=== PATIENT | male | born 1985 | race Caucasian/White ===

== ENCOUNTER 2016-07-25 12:51 | Emergency (ER) | payer BC ==
[~2016-07-25] VITALS: Ht 175.3 cm; Wt 77.1 kg
[~2016-07-25 12:51] MED LIST: ASPI81TA28 PO; CALC667C PO; CHOL1TAB42 PO; CLIN150C15 PO; GLGKIT; HYDR-5688 PO; INSPMPNVLG; LSX80 PO; NRV/5 PO; PREG75CA PO; PROP40TA5 PO; PROP80TA2 PO; ULT50X PO; VENL37.593 PO; VNTHFA/IN INH
[2016-07-25 13:04] VITALS: Ht 175.3 cm; Wt 77.1 kg
--- NOTE | 2016-07-25 13:19 | EMERGENCY ROOM VISIT NOTE ---
History Report prepared by Falguni: Lazaro Worthington Under the Supervision of: Dr. Steve Vieira M.D. First contact with patient: 13:07 Chief Complaint: HYPOGLYCEMIA Stated Complaint: HYPOGLYCEMIA Nursing Triage Summary: pt arrived via ALS; was sitting outside [employer], unknown amount of time; BSG was 28 per EMS given D10 and warm IV fluids; A&O on arrival BSG 91 on arrival; pt went to dialysis this AM; has insulin pump. History of Present Illness The patient is a 31 year old male who presents to the Emergency Room with complaints of an episode of hypoglycemia that started prior to arrival today. Per the nursing staff, the patient was found sitting outside [employer]'s store, and they are not sure how long the patient was sitting there. The patient was hypoglycemic with a blood sugar of 28 when EMS found him. The patient was given D10 and IV fluids. His temperature was 97.9. Currently, the patient is shivering. He did go to dialysis this morning and he does have an insulin pump. The patient has 3rd degree palomino on the bottom of his feet that he is being treated for at [facility]. Per the patient, he is not sure what happened. He checks his glucose regularly at home, and his blood sugar has been okay recently. Source of History: patient, nursing staff Onset: Prior to arrival today Position: other (global - hypoglycemia) Symptom Intensity: blood sugar of 28 Note: Associated symptoms: Shivering. Does have 3rd degree palomino on the bottom of his feet that he is being treated for at [facility]. Review of Systems See HPI for pertinent positives & negatives. A total of 10 systems reviewed and were otherwise negative. Past Medical & Surgical Medical Problems: (1) Anemia (2) Chronic kidney disease, stage IV (severe) (3) CKD (chronic kidney disease) stage V requiring chronic dialysis (4) Diabetic neuropathy (5) DM type 1 (diabetes mellitus, type 1) (6) Dyslipidemia (7) GERD (gastroesophageal reflux disease) (8) HTN (hypertension) (9) Wound, open, foot Surgical Problems: (1) S/p eye procedures (2) S/P tonsillectomy and adenoidectomy Family History Diabetes mellitus FH: heart disease Hypertension FATHER Social History Smoking Status: Never Smoker Alcohol Use: none Drug Use: none Marital Status: in relationship Housing Status: lives with significant other Occupation Status: disabled Current/Historical Medications Scheduled Amlodipine Besylate (Amlodipine Besylate), 5 MG PO DAILY Aspirin (Aspirin Ec), 81 MG PO QAM Calcium Acetate (Phosphate Bin (Phoslo 667 Mg), 667 MG PO TID Cholecalciferol (Vitamin D), 5,000 INTER.UNIT PO DAILYBB Furosemide (Furosemide), 80 MG PO DAILY Insulin Aspart (novoLOG INSULIN PUMP ), 1 EA N/A UD Pregabalin (Lyrica), 75 MG PO BID Propranolol (Inderal), 80 MG PO QPM Propranolol Hcl (Propranolol Hcl), 40 MG PO QAM Venlafaxine Hcl (Venlafaxine Extended Rel), 37.5 MG PO QPM Scheduled PRN Albuterol Hfa (Ventolin Hfa), 2 PUFFS INH Q4H PRN for SOB/Wheezing Glucagon (Glucagon Emergency Kit), 1 DOSE UD PRN for HYPOGLYCEMIA PROTOCOL Hydrocodone/Acetaminophen 5MG/325MG (Loiza 5MG/325MG), 1 TABLET PO DAILY PRN for Severe Pain Tramadol HCl (Tramadol HCl), 50 MG PO Q6 PRN for Pain Allergies Coded Allergies: Penicillins (Verified Allergy, Intermediate, RASH A CHILD; HAS HAD AMOXICILLIN W/O PROBLEM, 06/19/16) BLAIR Inhibitors (Verified Adverse Reaction, Intermediate, hyperkalemia, 06/19/16) Angiotensin Receptor Blockers (Verified Adverse Reaction, Intermediate, hyperkalemia, 06/19/16) Physical Exam Vital Signs Date Time Temp Pulse Resp B/P Pulse Ox O2 Delivery O2 Flow Rate FiO2 07/25/16 18:57 89 15 121/68 98 07/25/16 18:00 91 18 112/63 99 Room Air 07/25/16 17:20 36.9 07/25/16 17:02 83 07/25/16 16:51 82 12 104/58 98 Room Air 07/25/16 15:42 35.7 07/25/16 15:36 78 15 111/65 98 Room Air 07/25/16 14:51 88 12 100 07/25/16 14:46 87 13 100 07/25/16 14:41 88 15 100 07/25/16 14:36 90 18 100 07/25/16 14:31 89 16 100 07/25/16 14:28 142/104 07/25/16 14:26 84 21 100 1/9/17 14:21 85 11 100 07/25/16 14:19 34.9 85 12 186/122 100 Room Air 07/25/16 14:16 85 16 100 07/25/16 14:11 92 12 100 07/25/16 14:06 93 12 100 07/25/16 14:01 92 10 100 07/25/16 13:58 186/122 07/25/16 13:56 88 9 100 07/25/16 13:51 88 15 100 07/25/16 13:46 89 10 100 07/25/16 13:41 90 12 100 07/25/16 13:36 89 13 100 07/25/16 13:31 89 16 100 07/25/16 13:28 193/119 07/25/16 13:26 89 10 100 07/25/16 13:21 90 19 100 07/25/16 13:16 90 19 100 07/25/16 13:11 88 13 100 07/25/16 13:08 182/129 07/25/16 13:06 87 8 100 07/25/16 13:04 33.8 88 19 182/129 100 Room Air 07/25/16 13:01 86 16 100 07/25/16 13:00 85 07/25/16 12:56 188/112 Physical Exam CONSTITUTIONAL: Shivering. Appears cold under blankets. HEENT: No icterus, moist mucous membranes NECK: No meningismus, trachea is midline. CARDIOVASCULAR: Regular rate, normal perfusion RESPIRATORY: Unlabored breathing. Clear to auscultation. GASTROINTESTINAL: Non-tender GENITOURINARY: No flank tenderness MUSCULOSKELETAL: Full range of motion NEUROLOGIC: No acute gross focal deficits. PSYCHIATRIC: Normal affect SKIN: Normal for ethnicity. Medical Decision & Procedures ER Provider Diagnostic Interpretation: X-ray results as stated below per interpretation by me and the radiologist. SINGLE VIEW CHEST CLINICAL HISTORY: Hypoglycemia. FINDINGS: An AP, portable, upright chest radiograph is compared to study dated 06/19/2016. The examination is degraded by portable technique and patient rotation. The cardiomediastinal silhouette is unremarkable. The lungs and pleural spaces are clear. No pneumothorax is seen. The bony thorax is grossly intact. IMPRESSION: No active disease in the chest. Electronically signed by: Alex Minaya M.D. 07/25/2016 1:44 PM Dictated Date/Time: 07/25/2016 1:44 PM Laboratory Results 07/25/16 13:50 Red Blood Count 4.38, Mean Corpuscular Volume 89.0, Mean Corpuscular Hemoglobin 30.4, Mean Corpuscular Hemoglobin Concent 34.1, Mean Platelet Volume 10.2, Neutrophils (%) (Auto) 61.5, Lymphocytes (%) (Auto) 26.7, Monocytes (%) (Auto) 5.8, Eosinophils (%) (Auto) 4.3, Basophils (%) (Auto) 1.0, Neutrophils # (Auto) 4.31, Lymphocytes # (Auto) 1.87, Monocytes # (Auto) 0.41, Eosinophils # (Auto) 0.30, Basophils # (Auto) 0.07 07/25/16 13:50 Test 07/25/16 13:50 07/25/16 17:23 White Blood Count 7.01 K/uL (4.8-10.8) Red Blood Count 4.38 M/uL (4.7-6.1) Hemoglobin 13.3 g/dL (14.0-18.0) Hematocrit 39.0 % (42-52) Mean Corpuscular Volume 89.0 fL (80-100) Mean Corpuscular Hemoglobin 30.4 pg (25-34) Mean Corpuscular Hemoglobin Concent 34.1 g/dl (32-36) Platelet Count 199 K/uL (130-400) Mean Platelet Volume 10.2 fL (7.4-10.4) Neutrophils (%) (Auto) 61.5 % Lymphocytes (%) (Auto) 26.7 % Monocytes (%) (Auto) 5.8 % Eosinophils (%) (Auto) 4.3 % Basophils (%) (Auto) 1.0 % Neutrophils # (Auto) 4.31 K/uL (1.4-6.5) Lymphocytes # (Auto) 1.87 K/uL (1.2-3.4) Monocytes # (Auto) 0.41 K/uL (0.11-0.59) Eosinophils # (Auto) 0.30 K/uL (0-0.5) Basophils # (Auto) 0.07 K/uL (0-0.2) RDW Standard Deviation 45.6 fL (36.4-46.3) RDW Coefficient of Variation 13.9 % (11.5-14.5) Immature Granulocyte % (Auto) 0.7 % Immature Granulocyte # (Auto) 0.05 K/uL (0.00-0.02) Anion Gap 10.0 mmol/L (3-11) Est Creatinine Clear Calc Drug Dose 24.4 ml/min Estimated GFR () 19.6 Estimated GFR (Non- 16.9 BUN/Creatinine Ratio 5.9 (10-20) Calcium Level 9.2 mg/dl (8.5-10.1) Phosphorus Level 4.9 mg/dl (2.5-4.9) Magnesium Level 2.3 mg/dl (1.8-2.4) Total Bilirubin 0.6 mg/dl (0.2-1) Direct Bilirubin 0.1 mg/dl (0-0.2) Aspartate Amino Transf (AST/SGOT) 19 U/L (15-37) Alanine Aminotransferase (ALT/SGPT) 44 U/L (12-78) Alkaline Phosphatase 127 U/L (45-117) Total Creatine Kinase 348 U/L (39-308) Total Protein 7.9 gm/dl (6.4-8.2) Albumin 3.8 gm/dl (3.4-5.0) Ethyl Alcohol mg/dL < 3.0 mg/dl (0-3) Bedside Glucose 343 mg/dl (70-99) Labs reviewed by ED physician. ECG Indication: other (hypoglycemia) Rate (beats per minute): 89 Rhythm: normal sinus Findings: no ectopy, other (some shivering noted, no [place] waves) ED Course 1312: Past medical records reviewed. The patient was evaluated in room A9B. A complete history and physical examination was performed. 1726: I reevaluated the patient and he is resting comfortably. The patient verbally expressed agreement and understanding of the treatment plan. The patient will be discharged. Medical Decision Differential diagnoses include: Poorly managed diabetes, complications of dialysis or kidney failure, hypothermia. 31-year-old brought to the emergency department via ambulance for evaluation of hypoglycemia. He has a history of end-stage renal disease on hemodialysis Monday as well as a history of insulin-dependent diabetes on insulin pump. He was noted to have a glucose of 20 in the field time he was unresponsive responded nicely to administration of dextrose intravenously. He was laying outside in this very cold weather and was found to have a mild hypothermia on arrival to the emergency department. He has mild shivering and is otherwise alert and appropriate and cooperative. He states he's been in his otherwise normal state of health although he has had occasional episodes of hypoglycemia. He cannot identify any specific triggers for this episode. He was warm to given a meal. Serial repeat glucoses were satisfactory. His insulin pump was turned back on. He understands to monitor his glucose closely. Mother also at bedside aware of assessment and plan and in agreement. Impression Primary Impression: Hypoglycemia Additional Impressions: Insulin dependent diabetes mellitus, Hypothermia Scribe Attestation The scribe's documentation has been prepared under my direction and personally reviewed by me in its entirety. I confirm that the note above accurately reflects all work, treatment, procedures, and medical decision making performed by me. Departure Information Dispostion Home / Self-Care Referrals Damian Ibarra M.D.(ELOISA) (PCP) Forms HOME CARE DOCUMENTATION FORM, IMPORTANT VISIT INFORMATION, WORK / SCHOOL INSTRUCTIONS Patient Instructions A Signature Page, ED Hypothermia Tx, My [facility]
--- NOTE | 2016-07-25 13:46 | DIAGNOSTIC IMAGING REPORT ---
SINGLE VIEW CHEST CLINICAL HISTORY: Hypoglycemia. FINDINGS: An AP, portable, upright chest radiograph is compared to study dated 06/19/2016. The examination is degraded by portable technique and patient rotation. The cardiomediastinal silhouette is unremarkable. The lungs and pleural spaces are clear. No pneumothorax is seen. The bony thorax is grossly intact. IMPRESSION: No active disease in the chest. Electronically signed by: Alex Minaya M.D. 07/25/2016 1:44 PM Dictated Date/Time: 07/25/2016 1:44 PM
[2016-07-25 14:31] LABS: BUN/CREATININE RATIO 5.9 (10-20); CALCIUM 9.2 mg/dl (8.5-10.1); CREATININE 4.3 mg/dl (0.60-1.40); MAGNESIUM 2.3 mg/dl (1.8-2.4); POTASSIUM 4.6 mmol/L (3.5-5.1)
[2016-07-25 14:33] LABS: PHOSPHORUS 4.9 mg/dl (2.5-4.9)
[2016-07-25 14:48] LABS: MEAN CORPUSCULAR HEMOGLOBIN 30.4 pg (25-34); MEAN CORPUSCULAR HGB CONC 34.1 g/dl (32-36); MEAN PLATELET VOLUME 10.2 fL (7.4-10.4); PLATELET COUNT 199 K/uL (130-400); RED BLOOD COUNT 4.38 M/uL (4.7-6.1); WHITE BLOOD COUNT 7.01 K/uL (4.8-10.8)
[2016-07-25 14:49] LABS: BASO ABS # 0.07 K/uL (0-0.2); COMPLETE YES; EOS % 4.3 %; IG% 0.7 %; LYMPH % 26.7 %; LYMPH ABS # 1.87 K/uL (1.2-3.4); MONO % 5.8 %; NEUT % 61.5 %
[2016-07-25 17:20] VITALS: TEMP 36.9
[2016-07-25 18:57] VITALS: BP 121/68; PULSE 89; O2SAT 98
[2017-01-06] MEDS ORDERED: LOPE-5 PO (07:56)
[2017-01-06] MEDS ORDERED: MULT-506 PO (07:56)
[2017-02-23] MEDS ORDERED: CEPH500C2 PO (07:54)
[2017-03-16] MEDS ORDERED: CIPR1TAB11 PO (09:15)
== END 2016-07-25 18:59 | disposition home or self-care (01) ==
LOC: EDBD 12:51 → C.EDA 12:52
DX: E11.649 Type 2 diabetes mellitus with hypoglycemia without coma (principal); T68.XXXA Hypothermia, initial encounter; X31.XXXA Exposure to excessive natural cold, initial encounter; Z96.41 Presence of insulin pump (external) (internal); N18.5 Chronic kidney disease, stage 5; E78.5 Hyperlipidemia, unspecified; K21.9 Gastro-esophageal reflux disease without esophagitis; I12.0 Hypertensive chronic kidney disease with stage 5 chronic kidney disease or end stage renal disease; Z79.82 Long term (current) use of aspirin; Z79.4 Long term (current) use of insulin

== ENCOUNTER 2016-10-04 10:28 | Inpatient (IN) | payer BC ==
[2016-09-22 12:20] VITALS: BMI 23.0
[~2016-10-04] VITALS: Ht 175.3 cm; Wt 74.7 kg
--- NOTE | 2016-10-04 05:48 | History and Physical ---
History & Physical Date of Service Oct 04, 2016. History & Physical Chief Complaint: End stage renal disease with functioning fistula and a steal of right upper extremity History of Present Illness The patient is a 30 year old male with DM and HTN with renal failure who now has a functioning avf. He has developed a steal of his right hand with significant weakness. He recently had palomino of his feet and treated at [facility] where he suffered a cardiac arrest. He has recovered from that. Allergies Coded Allergies: Penicillins (Verified Allergy, Intermediate, RASH, 05/22/15) BLAIR Inhibitors (Verified Adverse Reaction, Intermediate, hyperkalcemia, ) Angiotensin Receptor Blockers (Verified Adverse Reaction, Intermediate, hyperkalcemia, 05/22/15) Surgical / Medical History Hx Cardiac Surgery: No Hx Abdominal Surgery: No Hx Cancer Surgery: No Hx Thoracic Surgery: No Hx Orthopedic: No Hx Urinary Tract Surgery: No HX Other Surgery: Yes (TONSILLECOMY) Past Medical/Surgical History: Diabetes, Hypertension Family History Diabetes mellitus FH: heart disease Hypertension Social History Smoking Status: Former Smoker Hx Tobacco Use In Past Year?: No Hx Alcohol Use - Type & Amnt: No Hx Substance Use -Type & Amnt: No Review of Systems Constitutional: No chills, No diaphoresis, No fatigue, No fever, No malaise, No problem reported, No sweats, No weakness, No weight gain, No weight loss Respiratory: No ESPINAL, No PND, No cough, No cyanosis, No dyspnea, No hemoptysis, No orthopnea, No problem reported, No short of breath, No sputum production, No stridor, No wheezing Cardiovascular: No chest pain, No chest pressure, No chest tightness, No cyanosis, No diaphoresis, No edema, No intermittent claudication, No lightheadedness, No mumur, No orthopnea, No palpitations, No paroxysmal nocturnal dyspnea, No problem reported, No syncope Gastrointestinal: No abdominal pain, No anorexia, No appetite changes, No belching, No constipation, No diarrhea, No dysphagia, No flatulence, No food intolerance, No heartburn, No hematemesis, No hematochezia, No hemorrhoids, No indigestion, No nausea, No problem reported, No rectal bleeding, No stool changes, No vomiting Musculoskeletal: No back pain, No gout, No joint pain, No joint swelling, No muscle pain, No muscle stiffness, No muscle weakness, No neck pain, No problem reported Neurologic: No LOC, No dizziness, No headache, No lethargy, No memory loss, No numbness, No paresthesia, No pre-existing deficit, No problem reported, No seizures, No tics, No tingling, No tremors, No vertigo, No weakness Psychiatric: No alcohol abuse, No anxiety, No auditory hallucinations, No depression, No drug abuse, No homicidal ideation, No mood changes, No problem reported, No suicidal ideation, No visual hallucinations Physical Exam: Constitutional: General Apperance: heathly-appearing, well-nourished, well-developed Level of Distress: NAD Ambulation: ambulating normally Psychiatric: Mental Status: active & alert, normal mood, normal affect Orientation: oriented except where noted, to time, to place, to person ENMT: normal ENT inspection Neck: supple Lungs: Auscultation: breath sounds normal Cardiovascular: Heart Auscultation: RRR Peripheral Pulses: Pulses: full and equal, in all extremities except if noted Abdomen: Inspection & Palpation: soft Musculoskeletal: normal, normal strength (5/5 throughout), normal tone Extremities: Upper Right: no cyanosis, no edema, no varicosities, no palpable cord, no clubbing, no ulcers, no mottling, significant right hand weakness to grasp Upper Left: no cyanosis, no edema, no varicosities, no palpable cord, no clubbing, no ulcers, no mottling, good thrill and bruit in the fistula Lower Right: no cyanosis, no edema, no varicosities, no palpable cord, no clubbing, no ulcers, no mottling Lower Left: no cyanosis, no edema, no varicosities, no palpable cord, no clubbing, no ulcers, no mottling Neurologic: Cranial Nerves: grossly intact Sensation: grossly intact Imp: Right upper extremity steal syndrome End stage renal disease Functioning av fistula HTN DM Plan: Patient admitted for a distal revascularization with interval ligation. I have discussed the risks options and benefits of the procedure with the patient. The patient understands the risks options and benefits and agrees to the procedure.
[~2016-10-04 10:28] MED LIST changes: -CLIN150C15 PO; +CLINDAMYCIN 600 MG/54 ML D5W IV SCH; -HYDR-5688 PO; +MIDAZOLAM HCL 1 MG/ML 2ML VIAL ONE; +SODIUM CHLORIDE 0.9% 1000ML 1,000 ML IV SCH; -ULT50X PO
[2016-10-04] MEDS ORDERED: CALC667C4 PO (11:33)
[2016-10-04 11:40] VITALS: BP 147/84; PULSE 75; TEMP 36.6; O2SAT 100; BMI 23.0
[2016-10-04] MEDS ORDERED: HEPARIN SOD (PORCINE) 1000 UNIT/ML 10 ML VIAL ONE ×2 (12:27→18:21)
[2016-10-04] MEDS ORDERED: BUPIVACAINE/EPINEPHRINE 0.5% 1:200,000 1.8 ML CARP ONE (12:28)
[2016-10-04] MEDS ORDERED: LIDOCAINE/EPINEPHRINE 1% 20 ML VIAL ONE (12:30)
[2016-10-04] MEDS ORDERED: BUPIVACAINE/EPINEPHRINE 0.5% MPF 1:200,000 30 ML VIAL ONE (12:30)
[2016-10-04] MEDS ORDERED: LIDOCAINE HCL 1% 20 ML VIAL ONE (12:31)
[2016-10-04] MEDS ORDERED: THROMBIN 5000 UNITS KIT ONE (12:32)
[2016-10-04] MEDS ORDERED: GELATIN SPONGE 12-7MM ONE (12:33)
[2016-10-04 12:35] LABS: BUN/CREATININE RATIO 5.7 (10-20); CALCIUM 8.7 mg/dl (8.5-10.1); CREATININE 6.4 mg/dl (0.60-1.40); POTASSIUM 4.4 mmol/L (3.5-5.1)
[2016-10-04] MEDS ORDERED: ATROPINE SULFATE 0.1 MG/ML 5ML SYR IV PRN (12:45)
[2016-10-04] MEDS ORDERED: FENTANYL CITRATE INJ 50 MCG/1 ML 2 ML VIAL IV PRN (12:45)
[2016-10-04] MEDS ORDERED: ONDANSETRON INJ 2 MG/ML 2 ML VIAL IV PRN ×2 (12:45→20:00)
[2016-10-04] MEDS ORDERED: EpHEDrine SULFATE INJ 50 MG/ML AMP IV PRN (12:45)
[2016-10-04 12:48] LABS: BETA-HYDROXYBUTYRATE 3.98 mg/dL (0.2-2.81)
--- NOTE | 2016-10-04 14:29 | History & Physical Bridge Note ---
H&P Re-Evaluation Bridge Note: I have examined the patient, reviewed the History & Physical and in the interval since the performance of the History & Physical I have noted the following changes of clinical significance: No changes noted
[2016-10-04] MEDS ORDERED: PROPOFOL IV EMULSION 10 MG/ML 20 ML VIAL IV ONE ×2 (14:37→19:12)
[2016-10-04] MEDS ORDERED: ROCURONIUM BROMIDE 10 MG/ML 5 ML VIAL ONE ×2 (14:49→17:18)
[2016-10-04] MEDS ORDERED: LIDOCAINE HCL 2% 2 ML VIAL (20MG/ML) ONE (14:49)
[2016-10-04] MEDS ORDERED: GLYCOPYRROLATE INJ 0.2 MG/ML VIAL ONE (14:49)
[2016-10-04] MEDS ORDERED: ONDANSETRON INJ 2 MG/ML 2 ML VIAL ONE ×2 (14:49→17:13)
[2016-10-04] MEDS ORDERED: DEXAMETHASONE SOD INJ 4 MG/ML VIAL ONE (14:49)
[2016-10-04] MEDS ORDERED: NEOSTIGMINE METHYLSULFATE 5 MG/5 ML SYR ONE (14:49)
[2016-10-04] MEDS ORDERED: FENTANYL CITRATE INJ 50 MCG/1 ML 2 ML VIAL ONE ×3 (14:50→20:27)
[2016-10-04] MEDS ORDERED: SUCCINYLCHOLINE 100MG/5ML SYR IV ONE (18:48)
[2016-10-04] MEDS ORDERED: GLUCOSE 40% GEL 15 GM TUBE PO PRN (20:00)
[2016-10-04] MEDS ORDERED: ACETAMINOPHEN 325 MG TAB PO PRN (20:00)
[2016-10-04] MEDS ORDERED: DEXTROSE 50% 50 ML SYR IV PRN (20:00)
[2016-10-04] MEDS ORDERED: NON-FORMULARY MEDICATION (Glucagon (Glucagon Emergency Kit) 1 DOSE) PRN (20:00)
[2016-10-04] MEDS ORDERED: GLUCAGON FOR INJ 1 MG VIAL SQ PRN (20:00)
[2016-10-04] MEDS ORDERED: GLUCOSE 10 TABS/TUBE PO PRN (20:00)
[2016-10-04] MEDS ORDERED: MoRPHine SULFATE 4 MG/ML 1 ML CARP\\VIAL IV PRN (20:00)
[2016-10-04] MEDS ORDERED: NovoLOG INSULIN PUMP PRN (20:00)
[2016-10-04] MEDS ORDERED: ALBUTEROL HFA 8 GM INHALER INH PRN (20:00)
--- NOTE | 2016-10-04 20:06 | [facility] Post Operative Brief Note ---
Immediate Operative Summary Operative Date Oct 04, 2016. Pre-Operative Diagnosis Right upper extremity steal syndrome Post-Operative Diagnosis Right upper extremity steal syndrome Procedure(s) Performed Distal Revascularization Interval Ligation Procedure Right Upper Arm Surgeon Dr. Michelle Assistant Prosecuting Attorney Surgeon(s) Milton Alvarez MD Estimated Blood Loss 100ml Findings doppler ulnar and palmar arch left arm Specimens None Anesthesia Gen Complication(s) None Disposition Recovery Room / PACU
[2016-10-04 20:30] LABS: BASO % 0.5 %; BASO ABS # 0.04 K/uL (0-0.2); COMPLETE YES; EOS % 3.3 %; HEMATOCRIT 33.2 % (42-52); IG% 0.2 %; LYMPH % 45.2 %; LYMPH ABS # 3.68 K/uL (1.2-3.4); MEAN CELL VOLUME 88.1 fL (80-100); MEAN PLATELET VOLUME 9.7 fL (7.4-10.4); MONO % 5.2 %; NEUT % 45.6 %; PLATELET COUNT 167 K/uL (130-400); RED BLOOD COUNT 3.77 M/uL (4.7-6.1); WHITE BLOOD COUNT 8.14 K/uL (4.8-10.8)
[2016-10-04] MEDS ORDERED: INSULIN HUMAN REGULAR SC SCH (21:00)
[2016-10-04] MEDS ORDERED: PROPRANOLOL HCL 80 MG TAB PO SCH (21:00)
[2016-10-04] MEDS ORDERED: VENLAFAXINE HCL XR 37.5 MG CAPXR PO SCH (21:00)
[2016-10-04] MEDS: CALCIUM ACETATE 667MG GELCAP PO SCH (21:00)
[2016-10-04 21:05] LABS: BUN/CREATININE RATIO 6.2 (10-20); CALCIUM 8.5 mg/dl (8.5-10.1); POTASSIUM 4.4 mmol/L (3.5-5.1)
--- NOTE | 2016-10-04 21:44 | Anesthesiology Progress Note ---
Anesthesia Post Op Note Date & Time Oct 04, 2016 at 21:43 Vital Signs Pain Intensity: 2 Vital Signs Past 12 Hours Date Time Temp Pulse Resp B/P Pulse Ox O2 Delivery O2 Flow Rate FiO2 10/04/16 21:21 77 16 10/04/16 21:21 77 16 99 10/04/16 21:19 100/57 10/04/16 21:19 103/54 10/04/16 21:16 77 16 10/04/16 21:16 77 16 98 10/04/16 21:14 88/59 10/04/16 21:11 78 16 10/04/16 21:11 78 16 99 10/04/16 21:09 95/48 10/04/16 21:06 78 16 98/48 98 10/04/16 21:06 78 16 10/04/16 21:05 94/53 10/04/16 21:01 79 16 10/04/16 21:01 78 16 98 10/04/16 21:00 80 16 99 10/04/16 21:00 80 16 10/04/16 20:59 99/52 10/04/16 20:55 79 16 98 10/04/16 20:55 79 16 10/04/16 20:54 102/54 10/04/16 20:50 78 16 10/04/16 20:50 77 16 117/59 100 10/04/16 20:45 76 16 10/04/16 20:45 76 16 100 10/04/16 20:44 108/62 10/04/16 20:42 76 14 93 10/04/16 20:42 76 14 10/04/16 20:39 104/59 10/04/16 20:37 78 16 100 10/04/16 20:37 78 16 10/04/16 20:34 109/60 10/04/16 20:32 79 13 10/04/16 20:32 79 13 100 10/04/16 20:29 100/57 10/04/16 20:27 79 13 100 10/04/16 20:27 79 13 10/04/16 20:24 113/61 10/04/16 20:22 80 9 10/04/16 20:22 80 9 107/55 100 10/04/16 20:17 79 15 100 10/04/16 20:17 80 15 10/04/16 20:14 111/63 10/04/16 20:12 80 12 100 10/04/16 20:12 80 12 10/04/16 20:10 106/59 10/04/16 20:07 80 11 10/04/16 20:07 80 11 112/59 98 10/04/16 20:07 36.9 80 16 112/59 99 Mask 10 10/04/16 11:40 36.6 75 18 147/84 100 Room Air Notes Mental Status: alert / awake / arousable, participated in evaluation Pt Amnestic to Procedure: Yes Nausea / Vomiting: adequately controlled Pain: adequately controlled Airway Patency, RR, SpO2: stable & adequate BP & HR: stable & adequate Hydration State: stable & adequate Anesthetic Complications: no major complications apparent The patient tolerated the surgery well. His postop potassium was 4.4 and BSG was 207. He gave himself a bolus of 1.6 unit insulin on his pump. He is otherwise stable and doing well.
[2016-10-04] MEDS ORDERED: MoRPHine SULFATE 10 MG/ML CARP/VIAL ONE (21:59)
[2016-10-04] MEDS ORDERED: OXYCODONE/ACETAMINOPHEN 5-325 TAB ONE (22:50)
[2016-10-04 23:29] VITALS: BP 115/71; PULSE 79; TEMP 36.8; O2SAT 100; BMI 23.7
[2016-10-04] MEDS ORDERED: D5W AND 1/2NSS 1,000 ML IV SCH (23:59)
[2016-10-05] VITALS: O2SAT 96
[2016-10-05 00:20] VITALS: BP 130/78; PULSE 83; TEMP 36.6; O2SAT 96
[2016-10-05] MEDS ORDERED: INSULIN ASPART 100 UNITS/ML VIAL SC PRN (01:15)
[2016-10-05] MEDS: PREGABALIN 75 MG CAP PO SCH ×2 (01:24→09:36)
[2016-10-05] MEDS ORDERED: CLINDAMYCIN IV 600 MG in DEXTROSE 5% ADD-VANTAGE 50ML 50 ML IV SCH (02:00)
[2016-10-05 03:46] VITALS: BP 104/65; PULSE 73; TEMP 36.5; O2SAT 95
[2016-10-05 04:00] VITALS: O2SAT 95
[2016-10-05] MEDS: OXYCODONE/ACETAMINOPHEN 5-325 TAB PO PRN ×2 (04:08→09:34)
[2016-10-05 05:50] VITALS: Ht 175.3 cm; Wt 74.7 kg
[2016-10-05] MEDS ORDERED: CHOLECALCIFEROL 1000 INTER.UNIT TAB PO SCH (06:00)
--- NOTE | 2016-10-05 07:00 | OPERATIVE REPORT ---
DATE OF OPERATION: 10/04/2016 PREOPERATIVE DIAGNOSIS: Right upper extremity steal syndrome. POSTOPERATIVE DIAGNOSIS: Same. PROCEDURE: Distal revascularization and interval ligation, right upper extremity with ipsilateral cephalic vein. SURGEON: Dr. Eugene Michelle. LEGAL ARCHIVIST: Milton Alvarez MD ANESTHESIA: General. COMPLICATIONS: None. ESTIMATED BLOOD LOSS: 100 mL. INDICATIONS: This is a 31-year-old gentleman who had a previous right brachiocephalic AV fistula. This was placed many years ago for long-term hemodialysis access. He presented with ischemic symptoms of the right upper extremity. This was several months ago. We had planned to do a distal revascularization and interval ligation at that time. However, he had a serious medical illness after suffering some wounds and palomino on his feet. He had a cardiac arrest at an outside hospital. He has since recovered from all that and again returned to our office with complaints of ischemic symptoms of the right hand. These were quite debilitating. Duplex ultrasound did not show any brachial stenosis. His hand pulses augmented extensively with compression of the fistula. Therefore, a distal revascularization and interval ligation was indicated. The patient understood the risks, benefits, alternatives of the above procedure and agreed to proceed. DESCRIPTION OF PROCEDURE: The patient was brought to the operating room and placed in supine position. The right upper extremity was prepped and draped in normal sterile fashion. Timeout was performed and all parties agreed to correct patient and procedure to be performed. Appropriate surgical prophylactic antibiotics were administered within 1 hour of the incision. There appeared to be a quite large basilic vein. Therefore, we elected to use this for our bypass. Using a 15 blade, a longitudinal incision was made in the skin. The subcutaneous tissues were divided with electrocautery. The basilic vein was identified in the arm and was of very good quality. This was dissected free for a good way up the arm. This did appear to join with another large branch that continued on as the brachial vein and therefore that branch was left in place. Distally, the basilic vein was traced back essentially to the level of the antecubital fossa. The vein was dissected free, taking care to protect all nerves in the vicinity. The vein was ligated proximally and distally and removed. We then made a separate incision at the antecubital fossa. This incision was deepened with electrocautery. This area was fairly scarred from his previous fistula. However, we did dissect down and find the brachial artery bifurcation. This area was dissected free. Clamps were able to be placed on the radial artery, the ulnar artery and the proximal brachial artery. The patient was systemically heparinized. We elected to perform the distal anastomosis first. An arteriotomy was made in the brachial artery, which extended just down to the radial artery. This was extended with Mccarthy scissors. Using running 6-0 Prolene suture, the vein was sewn in place. All debris was flushed out of the graft. We then tunneled this vein through the small skin bridge about the antecubital fossa. The brachial artery was identified in the mid portion of the arm. This was clamped and an arteriotomy was made with an 11 blade. This was extended with Mccarthy scissors. I performed an anastomosis to this area of the brachial artery with the help of 6-0 Prolene suture in a continuous fashion. Prior to completion of the anastomosis, it was backbled, forebled and flushed. Both wounds were hemostatic. We next turned our attention to performing the interval ligation. The brachial artery was again identified. It was clamped. Upon this, we listened for signals in the hand. There really was good blood flow to the hand. There was a palmar arch signal. There also remained a strong thrill in the fistula. For this reason, the brachial artery was then ligated proximal to our anastomosis. Again, there was a good palmar arch signal after this. The wounds were copiously irrigated. Hemostasis was achieved. The arm incision was closed with Vicryl subcuticular, followed by lino for the skin. The antecubital incision was closed with Vicryl subcuticular and then Monocryl on the skin. At the end of the procedure, patient was awakened from anesthesia and transferred to recovery room in satisfactory condition. He had a thrill in the fistula and a signal in his palmar arch. All sponge, instrument and needle counts were correct. I attest to the content of the Intraoperative Record and any orders documented therein. Any exceptions are noted below. JESSIED
[2016-10-05] MEDS: CALCIUM ACETATE 667MG GELCAP PO SCH (07:18)
[2016-10-05 08:00] VITALS: BP 105/66; PULSE 73; TEMP 36.5; O2SAT 96
[2016-10-05] MEDS ORDERED: PATIENT'S HEIGHT AND/OR WEIGHT NEEDED SCH (08:00)
[2016-10-05] MEDS ORDERED: HEPARIN SOD 5000 UNIT/0.5 ML CARP SQ SCH (08:00)
[2016-10-05] MEDS ORDERED: PROPRANOLOL HCL 20 MG TAB PO SCH (09:00)
[2016-10-05] MEDS ORDERED: ASPIRIN 81 MG ECTAB PO SCH (09:00)
[2016-10-05] MEDS ORDERED: FUROSEMIDE 80 MG TAB PO SCH (09:00)
[2016-10-05] MEDS ORDERED: AMLODIPINE BESYLATE 5 MG TAB PO SCH (09:00)
[2016-10-05 09:42] LABS: BASO % 0.4 %; BASO ABS # 0.04 K/uL (0-0.2); COMPLETE YES; EOS % 1.8 %; HEMATOCRIT 34.2 % (42-52); IG% 0.2 %; LYMPH % 40.1 %; LYMPH ABS # 3.74 K/uL (1.2-3.4); MEAN CELL VOLUME 87.7 fL (80-100); MEAN PLATELET VOLUME 10.2 fL (7.4-10.4); MONO % 6.5 %; PLATELET COUNT 179 K/uL (130-400); WHITE BLOOD COUNT 9.32 K/uL (4.8-10.8)
[2016-10-05 10:25] LABS: BUN/CREATININE RATIO 6.1 (10-20); CALCIUM 8.9 mg/dl (8.5-10.1); CREATININE 8.4 mg/dl (0.60-1.40); POTASSIUM 4.4 mmol/L (3.5-5.1)
[2016-10-05] MEDS ORDERED: OXYC-57 PO (10:32)
--- NOTE | 2016-10-05 10:37 | Discharge Instructions ---
Discharge Instructions Date of Service Oct 05, 2016. Admission Reason for Admission: End Stage Renal Disease, Steal Syndrome Left Arm Discharge Discharge Diagnosis / Problem: s/p Right Arm Distal Revascularization with Interval Ligation, ESRD Discharge Goals Goal(s): Decrease discomfort, Therapeutic intervention Activity Recommendations Activity Limitations: as noted below No lifting heavier than 5 lbs with Right Arm x 2 weeks. May shower, no soaking wound. No dressing necessary unless drainage noted. May remove dressing tomorrow. . Current Hospital Diet Patient's current hospital diet: Diabetes Type 2 Diet, AHA Diet (Heart Healthy) , Renal Diet Discharge Diet Recommended Diet: AHA Diet (Heart Healthy), Diabetes Type 1 Diet, Renal Diet Procedures Procedures Performed: Distal Revascularization Interval Ligation Procedure Right Upper Arm Pending Studies Studies pending at discharge: no Medical Emergencies . Who to Call and When: Medical Emergencies: If at any time you feel your situation is an emergency, please call 911 immediately. . Non-Emergent Contact Non-Emergency issues call your: Primary Care Provider . "Provider Documentation" section prepared by Natalie Lake. VTE Core Measure Inpt VTE Proph given/why not?: Unfractionated heparin SQ PA Drug Monitoring Program Drug Monitoring Findings: Unable to check PDMP d/t technology issues.
--- NOTE | 2016-10-05 10:41 | Progress Note ---
Progress Note Date of Service: Oct 05, 2016. Subjective 31 yo m POD #1 after RUE DRIL procedure, seen in f/u today. Pt states he has mild pain in RUE, but otherwise feeling fine. Denies any new complaints. Problem List Medical Problems: (1) Anemia Status: Acute (2) Arm pain, right Status: Acute (3) Arm pain, right Status: Acute (4) Back pain Status: Acute (5) Diabetic foot ulcers Status: Acute (6) Dialysis AV fistula malfunction Status: Acute (7) DKA (diabetic ketoacidoses) Status: Acute (8) End stage renal disease Status: Acute (9) End stage renal disease Status: Acute (10) End stage renal disease on dialysis Status: Acute (11) End stage renal disease on dialysis Status: Acute (12) Esotropia, left eye Status: Acute (13) Hyperglycemia Status: Acute (14) Hyperkalemia Status: Acute (15) Hypoglycemia Status: Acute (16) Hypoglycemia Status: Acute (17) Hypoglycemia Status: Acute (18) Hypothermia Status: Acute (19) Infected wound Status: Acute (20) Insulin dependent diabetes mellitus Status: Acute (21) Intractable vomiting Status: Acute (22) Near syncope Status: Acute (23) Rash Status: Acute (24) Thoracic compression fracture Status: Acute Objective Vital Signs Vital Signs Past 12 Hours Date Time Temp Pulse Resp B/P Pulse Ox O2 Delivery O2 Flow Rate FiO2 10/05/16 08:00 Room Air 10/05/16 08:00 36.5 73 16 105/66 96 10/05/16 04:00 95 Room Air 10/05/16 03:46 36.5 73 16 104/65 95 Room Air 10/05/16 00:20 36.6 83 20 130/78 96 Room Air 10/05/16 00:00 96 Room Air 10/04/16 23:29 36.8 79 14 115/71 100 Nasal Cannula 2.0 10/04/16 23:29 115/71 10/04/16 23:26 80 16 99 10/04/16 23:26 80 16 10/04/16 23:21 80 16 10/04/16 23:21 79 16 99 10/04/16 23:16 79 16 98 10/04/16 23:16 79 16 10/04/16 23:15 117/71 3/21/17 23:13 79 16 10/04/16 23:13 79 16 99 10/04/16 23:08 80 20 10/04/16 23:08 80 20 98 10/04/16 23:03 80 16 10/04/16 23:03 80 16 98 10/04/16 23:02 81 16 100 10/04/16 23:02 81 16 10/04/16 23:00 116/80 10/04/16 22:57 82 19 10/04/16 22:57 82 19 99 10/04/16 22:52 82 23 10/04/16 22:52 82 23 99 10/04/16 22:47 83 19 10/04/16 22:47 83 19 99 10/04/16 22:45 119/75 10/04/16 22:42 84 20 10/04/16 22:42 84 20 99 Exam CONST: A&O x4, NAD, chronically ill appearing male CHEST: RRR lungs decreased, but ctab ABD: soft, nontender, + bs x 4 quad EXT: RUE with + local edema and tenderness. Wounds well approximated. + thrill /bruit over AVF and bypass. + palpable ulnar/radial, warm hand. Intake & Output 8-Hour Column 10/04/16 10/05/16 10/05/16 16:00 00:00 08:00 Intake Total 700 ml Output Total 100 ml Balance 600 ml 24-Hour Column 10/05/16 08:00 Intake Total 700 ml Output Total 100 ml Balance 600 ml Laboratory and Microbiology Results Past 24 Hours Test 10/04/16 11:24 10/04/16 11:28 10/04/16 12:39 10/04/16 14:29 Range/Units Bedside Glucose 300 322 263 70-99 mg/dl Sodium Level 134 136-145 mmol/L Potassium Level 4.4 3.5-5.1 mmol/L Chloride Level 96 98-107 mmol/L Carbon Dioxide Level 30 21-32 mmol/L Anion Gap 8.0 3-11 mmol/L Blood Urea Nitrogen 37 7-18 mg/dl Creatinine 6.40 0.60-1.40 mg/dl Est Creatinine Clear Calc Drug Dose 16.4 ml/min Estimated GFR () 12.1 Estimated GFR (Non- 10.4 BUN/Creatinine Ratio 5.7 10-20 Random Glucose 315 70-99 mg/dl Calcium Level 8.7 8.5-10.1 mg/dl Beta-Hydroxybutyric Acid 3.98 0.2-2.81 mg/dL Test 10/04/16 15:57 10/04/16 18:45 10/04/16 20:17 10/04/16 20:20 Range/Units Bedside Glucose 224 171 207 70-99 mg/dl White Blood Count 8.14 4.8-10.8 K/uL Red Blood Count 3.77 4.7-6.1 M/uL Hemoglobin 11.3 14.0-18.0 g/dL Hematocrit 33.2 42-52 % Mean Corpuscular Volume 88.1 80-100 fL Mean Corpuscular Hemoglobin 30.0 25-34 pg Mean Corpuscular Hemoglobin Concent 34.0 32-36 g/dl Platelet Count 167 130-400 K/uL Mean Platelet Volume 9.7 7.4-10.4 fL Neutrophils (%) (Auto) 45.6 % Lymphocytes (%) (Auto) 45.2 % Monocytes (%) (Auto) 5.2 % Eosinophils (%) (Auto) 3.3 % Basophils (%) (Auto) 0.5 % Neutrophils # (Auto) 3.71 1.4-6.5 K/uL Lymphocytes # (Auto) 3.68 1.2-3.4 K/uL Monocytes # (Auto) 0.42 0.11-0.59 K/uL Eosinophils # (Auto) 0.27 0-0.5 K/uL Basophils # (Auto) 0.04 0-0.2 K/uL RDW Standard Deviation 43.2 36.4-46.3 fL RDW Coefficient of Variation 13.4 11.5-14.5 % Immature Granulocyte % (Auto) 0.2 % Immature Granulocyte # (Auto) 0.02 0.00-0.02 K/uL Sodium Level 136 136-145 mmol/L Potassium Level 4.4 3.5-5.1 mmol/L Chloride Level 99 98-107 mmol/L Carbon Dioxide Level 29 21-32 mmol/L Anion Gap 8.0 3-11 mmol/L Blood Urea Nitrogen 44 7-18 mg/dl Creatinine 7.00 0.60-1.40 mg/dl Est Creatinine Clear Calc Drug Dose 15.0 ml/min Estimated GFR () 10.9 Estimated GFR (Non- 9.4 BUN/Creatinine Ratio 6.2 10-20 Random Glucose 238 70-99 mg/dl Calcium Level 8.5 8.5-10.1 mg/dl Test 10/05/16 06:38 10/05/16 09:23 10/05/16 10:25 Range/Units Bedside Glucose 265 70-99 mg/dl White Blood Count 9.32 4.8-10.8 K/uL Red Blood Count 3.90 4.7-6.1 M/uL Hemoglobin 11.3 14.0-18.0 g/dL Hematocrit 34.2 42-52 % Mean Corpuscular Volume 87.7 80-100 fL Mean Corpuscular Hemoglobin 29.0 25-34 pg Mean Corpuscular Hemoglobin Concent 33.0 32-36 g/dl Platelet Count 179 130-400 K/uL Mean Platelet Volume 10.2 7.4-10.4 fL Neutrophils (%) (Auto) 51.0 % Lymphocytes (%) (Auto) 40.1 % Monocytes (%) (Auto) 6.5 % Eosinophils (%) (Auto) 1.8 % Basophils (%) (Auto) 0.4 % Neutrophils # (Auto) 4.74 1.4-6.5 K/uL Lymphocytes # (Auto) 3.74 1.2-3.4 K/uL Monocytes # (Auto) 0.61 0.11-0.59 K/uL Eosinophils # (Auto) 0.17 0-0.5 K/uL Basophils # (Auto) 0.04 0-0.2 K/uL RDW Standard Deviation 43.2 36.4-46.3 fL RDW Coefficient of Variation 13.4 11.5-14.5 % Immature Granulocyte % (Auto) 0.2 % Immature Granulocyte # (Auto) 0.02 0.00-0.02 K/uL Sodium Level 136 136-145 mmol/L Potassium Level 4.4 3.5-5.1 mmol/L Chloride Level 98 98-107 mmol/L Carbon Dioxide Level 29 21-32 mmol/L Anion Gap 9.0 3-11 mmol/L Blood Urea Nitrogen 52 7-18 mg/dl Creatinine 8.40 0.60-1.40 mg/dl Est Creatinine Clear Calc Drug Dose 12.5 ml/min Estimated GFR () 8.7 Estimated GFR (Non- 7.5 BUN/Creatinine Ratio 6.1 10-20 Random Glucose 197 70-99 mg/dl Calcium Level 8.9 8.5-10.1 mg/dl Microbiology Results 10/05/16 MRSA DNA Surveillance Screen - Final, Complete Specimen Negative for MRSA by DNA Probe ASSESSMENT and PLAN: s/p RUE DRIL procedure ESRD on HD, RUE steal syndrome Pt doing well post op. d/c home today with outpt hd. Will see in office n 2 weeks for reeval.
[2016-10-05 10:42] VITALS: BP 105/66; PULSE 73; TEMP 36.5; O2SAT 96
[2016-10-05 10:52] LABS: PARTIAL THROMBOPLASTIN RATIO 0.9; PROTHROMBIN TIME (PATIENT) 10.7 SECONDS (9.0-12.0)
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
[2017-01-06] MEDS ORDERED: LOPE-5 PO (07:56)
[2017-01-06] MEDS ORDERED: MULT-506 PO (07:56)
[2017-02-23] MEDS ORDERED: CEPH500C2 PO (07:54)
[2017-03-16] MEDS ORDERED: CIPR1TAB11 PO (09:15)
== END 2016-10-05 11:16 | disposition home or self-care (01) | DRG 264 ==
LOC: ENRESERVDT → ENRESERVTM → C.ACU 10:28 → C.2T 20:04 → EDBEDREQSVC 20:59
PROVIDERS: ADMIT Surgery Vascular Surgery; ATTEND Surgery Vascular Surgery
DX: T82.898A Other specified complication of vascular prosthetic devices, implants and grafts, initial encounter (principal); N18.6 End stage renal disease; I12.0 Hypertensive chronic kidney disease with stage 5 chronic kidney disease or end stage renal disease; E11.21 Type 2 diabetes mellitus with diabetic nephropathy; Z88.0 Allergy status to penicillin; Z83.3 Family history of diabetes mellitus; Z87.891 Personal history of nicotine dependence; Y83.2 Surgical operation with anastomosis, bypass or graft as the cause of abnormal reaction of the patient, or of later complication, without mention of misadventure at the time of the procedure; Y92.009 Unspecified place in unspecified non-institutional (private) residence as the place of occurrence of the external cause; Z79.4 Long term (current) use of insulin; Z99.2 Dependence on renal dialysis

== ENCOUNTER 2016-12-26 08:02 | Emergency (ER) | payer BC ==
[~2016-12-26] VITALS: Ht 175.3 cm; Wt 78.6 kg
[~2016-12-26 08:02] MED LIST changes: -CALC667C PO; +CALC667C4 PO; -CLINDAMYCIN 600 MG/54 ML D5W IV SCH; -MIDAZOLAM HCL 1 MG/ML 2ML VIAL ONE; +OXYC-57 PO; -SODIUM CHLORIDE 0.9% 1000ML 1,000 ML IV SCH
[2016-12-26 08:06] VITALS: BP 136/87; PULSE 104; TEMP 36.5; O2SAT 99; Ht 175.3 cm; Wt 78.6 kg
[2016-12-26] MEDS ORDERED: AMX875 PO (08:39)
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
[2017-01-06] MEDS ORDERED: MULT-506 PO (07:56)
[2017-01-06] MEDS ORDERED: LOPE-5 PO (07:56)
[2017-02-23] MEDS ORDERED: CEPH500C2 PO (07:54)
[2017-03-16] MEDS ORDERED: CIPR1TAB11 PO (09:15)
== END 2016-12-26 08:58 | disposition home or self-care (01) ==
LOC: C.EDB 08:04
DX: T25.029A Burn of unspecified degree of unspecified foot, initial encounter (principal); X19.XXXA Contact with other heat and hot substances, initial encounter; D64.9 Anemia, unspecified; N18.4 Chronic kidney disease, stage 4 (severe); Z99.2 Dependence on renal dialysis; E78.5 Hyperlipidemia, unspecified; E10.40 Type 1 diabetes mellitus with diabetic neuropathy, unspecified; K21.9 Gastro-esophageal reflux disease without esophagitis; I10 Essential (primary) hypertension; Z83.3 Family history of diabetes mellitus; Z82.49 Family history of ischemic heart disease and other diseases of the circulatory system; F17.200 Nicotine dependence, unspecified, uncomplicated; Z79.82 Long term (current) use of aspirin; Z79.4 Long term (current) use of insulin

== ENCOUNTER 2016-12-31 10:29 | Emergency (ER) | payer BC ==
[~2016-12-31] VITALS: Ht 175.3 cm; Wt 82.0 kg
[~2016-12-31 10:29] MED LIST changes: +AMX875 PO; -OXYC-57 PO
[2016-12-31 10:38] VITALS: TEMP 36.6; Ht 175.3 cm; Wt 82.0 kg
--- NOTE | 2016-12-31 11:31 | EMERGENCY ROOM VISIT NOTE ---
History Report prepared by Falguni: Josse Landeros Under the Supervision of: Dr. Ascencion Lang M.D. First contact with patient: 10:59 Chief Complaint: FOOT PAIN Stated Complaint: SWOLLEN FOOT,BODY ACHES History of Present Illness The patient is a 31 year old male who presents to the Emergency Room with complaints of bilateral foot swelling that began last night. He rates his pain a 5/10 in severity. He has previous palomino to the soles of his bilateral feet for which he has being [facility]. Last night, however, his feet began to swell. He notes that they are not as swollen as they were, but still are. He has a history of Diabetes and receives dialysis on Monday, Monday, and Monday. He denies any excess or new activity yesterday. He is taking Amoxicillin which started 6 days ago for "his teeth." He is experiencing neuropathy pain. He denies any other symptoms. Source of History: patient Onset: last night Position: foot (bilateral) Symptom Intensity: 5/10 Quality: ache, other (swelling) Timing: constant Note: He is experiencing neuropathy pain in his feet. He denies any other symptoms. Review of Systems See HPI for pertinent positives & negatives. A total of 10 systems reviewed and were otherwise negative. Past Medical & Surgical Medical Problems: (1) Anemia (2) Chronic kidney disease, stage IV (severe) (3) CKD (chronic kidney disease) stage V requiring chronic dialysis (4) Diabetic neuropathy (5) DM type 1 (diabetes mellitus, type 1) (6) Dyslipidemia (7) GERD (gastroesophageal reflux disease) (8) HTN (hypertension) (9) steal syndrome left arm (10) Wound, open, foot Surgical Problems: (1) S/p eye procedures (2) S/P tonsillectomy and adenoidectomy Family History Diabetes mellitus FH: heart disease Hypertension FATHER Social History Smoking Status: Current Every Day Smoker Alcohol Use: none Drug Use: none Marital Status: in relationship Housing Status: lives with significant other Occupation Status: disabled Current/Historical Medications Scheduled Amlodipine Besylate (Amlodipine Besylate), 5 MG PO QAM Amoxicillin (Amoxicillin), 875 MG PO BID Aspirin (Aspirin Ec), 81 MG PO QAM Calcium Acetate (Phoslo 667 Mg), 1 CAP PO BID Cholecalciferol (Vitamin D), 5,000 INTER.UNIT PO DAILYBB Furosemide (Furosemide), 80 MG PO QAM Insulin Aspart (novoLOG INSULIN PUMP ), 1 EA N/A UD Pregabalin (Lyrica), 75 MG PO BID Propranolol (Inderal), 80 MG PO QPM Propranolol Hcl (Propranolol Hcl), 40 MG PO QAM Sulfa/Trimethoprim (Bactrim Ds 800MG/160MG), 1 TAB PO BID Venlafaxine Hcl (Venlafaxine Extended Rel), 37.5 MG PO QPM Scheduled PRN Albuterol Hfa (Ventolin Hfa), 2 PUFFS INH Q4H PRN for SOB/Wheezing Glucagon (Glucagon Emergency Kit), 1 DOSE UD PRN for HYPOGLYCEMIA PROTOCOL Allergies Coded Allergies: Penicillins (Verified Allergy, Intermediate, RASH A CHILD; HAS HAD AMOXICILLIN W/O PROBLEM, 12/31/16) BLAIR Inhibitors (Verified Adverse Reaction, Intermediate, hyperkalemia, ) Angiotensin Receptor Blockers (Verified Adverse Reaction, Intermediate, hyperkalemia, 12/31/16) Physical Exam Vital Signs Date Time Temp Pulse Resp B/P (MAP) Pulse Ox O2 Delivery O2 Flow Rate FiO2 12/31/16 12:55 108 16 153/100 97 12/31/16 10:38 36.6 96 18 155/95 99 Room Air Physical Exam GENERAL: Patient is a healthy-appearing well-nourished male HEAD: Normocephalic atraumatic EYES: Ocular movements intact pupils equal and react to light OROPHARYNX mucous membranes are moist no exudates present no erythema or edema present NECK: Supple no nuchal rigidity CHEST: Good equal expansion LUNGS: Clear and equal to auscultation CARDIAC: Normal S1 and S2 ABDOMEN: Soft nontender no guarding BACK: No CVA tenderness EXTREMITIES: Total debridement of the bottom of the bilateral feet. No pus or evidence of infection. Areas of slight redness. Feet area slightly swollen. No evidence of cellulitis. NEURO: Patient is following commands and answering questions appropriately. Alert and oriented x3 Cranial Nerves 2-12 grossly intact Medical Decision & Procedures Laboratory Results 12/31/16 11:45 Red Blood Count 3.77, Mean Corpuscular Volume 92.8, Mean Corpuscular Hemoglobin 31.8, Mean Corpuscular Hemoglobin Concent 34.3, Mean Platelet Volume 10.1, Neutrophils (%) (Auto) 70.3, Lymphocytes (%) (Auto) 17.1, Monocytes (%) (Auto) 10.5, Eosinophils (%) (Auto) 1.6, Basophils (%) (Auto) 0.3, Neutrophils # (Auto ) 8.06, Lymphocytes # (Auto) 1.96, Monocytes # (Auto) 1.21, Eosinophils # (Auto ) 0.18, Basophils # (Auto) 0.04 12/31/16 11:45 Test 12/31/16 11:45 White Blood Count 11.47 K/uL (4.8-10.8) Red Blood Count 3.77 M/uL (4.7-6.1) Hemoglobin 12.0 g/dL (14.0-18.0) Hematocrit 35.0 % (42-52) Mean Corpuscular Volume 92.8 fL (80-100) Mean Corpuscular Hemoglobin 31.8 pg (25-34) Mean Corpuscular Hemoglobin Concent 34.3 g/dl (32-36) Platelet Count 220 K/uL (130-400) Mean Platelet Volume 10.1 fL (7.4-10.4) Neutrophils (%) (Auto) 70.3 % Lymphocytes (%) (Auto) 17.1 % Monocytes (%) (Auto) 10.5 % Eosinophils (%) (Auto) 1.6 % Basophils (%) (Auto) 0.3 % Neutrophils # (Auto) 8.06 K/uL (1.4-6.5) Lymphocytes # (Auto) 1.96 K/uL (1.2-3.4) Monocytes # (Auto) 1.21 K/uL (0.11-0.59) Eosinophils # (Auto) 0.18 K/uL (0-0.5) Basophils # (Auto) 0.04 K/uL (0-0.2) RDW Standard Deviation 45.4 fL (36.4-46.3) RDW Coefficient of Variation 13.2 % (11.5-14.5) Immature Granulocyte % (Auto) 0.2 % Immature Granulocyte # (Auto) 0.02 K/uL (0.00-0.02) Anion Gap 6.0 mmol/L (3-11) Est Creatinine Clear Calc Drug Dose 15.5 ml/min Estimated GFR () 11.2 Estimated GFR (Non- 9.7 BUN/Creatinine Ratio 4.5 (10-20) Calcium Level 9.8 mg/dl (8.5-10.1) Labs reviewed by ED physician. Medications Administered Medications (Trade) Dose Ordered Sig/Lynda Route Start Time Stop Time Status Last Admin Dose Admin Trimethoprim/ Sulfamethoxazole (Septra Ds 800/ 160MG Tab) 1 tab NOW STAT PO 12/31/16 12:27 12/31/16 12:28 DC 12/31/16 12:49 1 TAB ED Course 1059: Past medical records reviewed. The patient was evaluated in room A4. A complete history and physical examination was performed. 1227: Ordered Trimethoprim/Sulfamethoxazole 1 tab PO 1242: Upon reexamination the patient is resting. I discussed results and treatment plan with the patient. He verbalizes agreement and understanding. The patient is ready for discharge. Medical Decision Differential diagnosis: Etiologies such as fracture, dislocation, intra-abdominal, pneumothorax, intrathoracic , intracranial, neurologic, as well as other traumatic pathologies were entertained. Medication Reconciliation: I attest that I have personally reviewed the patient' s current medication list Blood Pressure Screening: Patient was found to have normal blood pressure on screening and does not require follow up. This is a 31-year-old male who presents emergency department complaining of increasing swelling in his feet. The feet are actually much improved from last night per patient and his mother. Based on the patient's complaint an IV was established, the patient does have an elevation in his white blood count cell count. I inspected the wounds myself. There does not appear to be any outright evidence of infection however a wound culture was obtained. The feet were read managed in the emergency department. I did discuss the case with Dr. Saleem who is on-call for wound care. I will note that the patient is early on amoxicillin for his teeth. I did add Bactrim to cover. Dr. louie stressed that the patient should stay in bed for the rest of the weekend. He will see the patient on Monday. Patient and mother were in agreement with the treatment plan. Impression Primary Impression: Encounter for wound re-check Scribe Attestation The scribe's documentation has been prepared under my direction and personally reviewed by me in its entirety. I confirm that the note above accurately reflects all work, treatment, procedures, and medical decision making performed by me. Departure Information Dispostion Home / Self-Care Prescriptions Sulfa/Trimethoprim (Bactrim Ds 800MG/160MG) Tab 1 TAB PO BID for 10 Days, #20 TAB Prov: Ascencion Lang MD 12/31/16 Referrals Damian Ibarra M.D.([facility]) (PCP) Wes Alva MD, Urology Forms HOME CARE DOCUMENTATION FORM, IMPORTANT VISIT INFORMATION, School Instructions, Work Instructions Patient Instructions ED Burn Wound Check FU Infec, ED Burn Wound Check No Infec, Hypertension Dc, My [facility] Additional Instructions Follow up with DR Saleem's office on monday Bedrest for rest of weekend with feet elevated You were found to have an elevated blood pressure today (>120 sytolic or >90 diastolic). Per medicare guidelines, you need to follow up with this blood pressure screening with your Primary Care Physician (PCP). For a new PCP call [phone]. Culture results are usually available in approx 48 hours You have been examined and treated today on an emergency basis only. This is not a substitute for, or an effort to provide, complete comprehensive medical care. It is impossible to recognize and treat all injuries or illnesses in a single emergency department visit. It is therefore important that you follow up closely with Dr Ibarra. Call as soon as possible for an appointment. Thank you for your time and consideration. I look forward to speaking with you again soon. Please don't hesitate to call us if you have any questions.
[2016-12-31 12:04] LABS: BASO % 0.3 %; BASO ABS # 0.04 K/uL (0-0.2); COMPLETE YES; EOS % 1.6 %; IG% 0.2 %; LYMPH % 17.1 %; LYMPH ABS # 1.96 K/uL (1.2-3.4); MEAN CELL VOLUME 92.8 fL (80-100); MEAN CORPUSCULAR HEMOGLOBIN 31.8 pg (25-34); MEAN CORPUSCULAR HGB CONC 34.3 g/dl (32-36); MEAN PLATELET VOLUME 10.1 fL (7.4-10.4); MONO % 10.5 %; NEUT % 70.3 %; PLATELET COUNT 220 K/uL (130-400); RED BLOOD COUNT 3.77 M/uL (4.7-6.1); WHITE BLOOD COUNT 11.47 K/uL (4.8-10.8)
[2016-12-31] MEDS ORDERED: SULFAMETHOXAZOLE/TRIMETHOPRIM DS 800/160MG TAB PO STA (12:27)
[2016-12-31] MEDS ORDERED: SULF800T23 PO (12:32)
[2016-12-31 12:34] LABS: CREATININE 6.8 mg/dl (0.60-1.40)
[2016-12-31 12:35] LABS: BUN/CREATININE RATIO 4.5 (10-20); CALCIUM 9.8 mg/dl (8.5-10.1); POTASSIUM 3.9 mmol/L (3.5-5.1)
[2016-12-31 12:55] VITALS: BP 153/100; PULSE 108; O2SAT 97
[2017-01-06] MEDS ORDERED: MULT-506 PO (07:56)
[2017-01-06] MEDS ORDERED: LOPE-5 PO (07:56)
[2017-02-23] MEDS ORDERED: CEPH500C2 PO (07:54)
[2017-03-16] MEDS ORDERED: CIPR1TAB11 PO (09:15)
== END 2016-12-31 12:56 | disposition home or self-care (01) ==
LOC: C.EDB 10:31 → C.EDA 12:56
DX: Z09 Encounter for follow-up examination after completed treatment for conditions other than malignant neoplasm (principal); M79.89 Other specified soft tissue disorders; S91.301D Unspecified open wound, right foot, subsequent encounter; S91.302D Unspecified open wound, left foot, subsequent encounter; X58.XXXD Exposure to other specified factors, subsequent encounter; D64.9 Anemia, unspecified; N18.5 Chronic kidney disease, stage 5; E10.40 Type 1 diabetes mellitus with diabetic neuropathy, unspecified; E78.5 Hyperlipidemia, unspecified; K21.9 Gastro-esophageal reflux disease without esophagitis; I12.0 Hypertensive chronic kidney disease with stage 5 chronic kidney disease or end stage renal disease; Z83.3 Family history of diabetes mellitus; Z82.49 Family history of ischemic heart disease and other diseases of the circulatory system; F17.210 Nicotine dependence, cigarettes, uncomplicated; Z79.82 Long term (current) use of aspirin; Z79.4 Long term (current) use of insulin; Z79.899 Other long term (current) drug therapy

== ENCOUNTER 2017-08-03 19:38 | Emergency (ER) | payer OTHER ==
[~2017-08-03] VITALS: Ht 175.3 cm; Wt 72.8 kg
[~2017-08-03 19:38] MED LIST changes: -AMX875 PO; -INSPMPNVLG; +LOPE-5 PO; +MULT-506 PO; -NRV/5 PO; -PREG75CA PO; -PROP40TA5 PO; -PROP80TA2 PO; +ROPI0.5T15 PO; -VENL37.593 PO; -VNTHFA/IN INH
[2017-08-03 19:45] VITALS: Ht 175.3 cm; Wt 72.8 kg
[2017-08-03 20:51] LABS: BASO % 0.4 %; BASO ABS # 0.04 K/uL (0-0.2); EOS % 3.1 %; EOS ABS # 0.33 K/uL (0-0.5); HEMATOCRIT 40.8 % (42-52); HEMOGLOBIN 13.6 g/dL (14.0-18.0); IG# 0.02 K/uL (0.00-0.02); LYMPH % 17.7 %; LYMPH ABS # 1.87 K/uL (1.2-3.4); MEAN CELL VOLUME 91.7 fL (80-100); MEAN CORPUSCULAR HEMOGLOBIN 30.6 pg (25-34); MEAN CORPUSCULAR HGB CONC 33.3 g/dl (32-36); MEAN PLATELET VOLUME 10.5 fL (7.4-10.4); MONO % 4.8 %; MONO ABS # 0.51 K/uL (0.11-0.59); NEUT % 73.8 %; NEUT ABS # 7.82 K/uL (1.4-6.5); PLATELET COUNT 171 K/uL (130-400); RED CELL DISTRIBUTION WIDTH CV 14.2 % (11.5-14.5); RED CELL DISTRIBUTION WIDTH SD 47.7 fL (36.4-46.3); WHITE BLOOD COUNT 10.59 K/uL (4.8-10.8)
--- NOTE | 2017-08-03 20:52 | DIAGNOSTIC IMAGING REPORT ---
SINGLE VIEW CHEST CLINICAL HISTORY: Weakness. Change in mental status. FINDINGS: An AP, portable, upright chest radiograph is compared to study dated 07/25/2016. The examination is degraded by portable technique and patient rotation. The cardiomediastinal silhouette is unremarkable. The lungs and pleural spaces are clear. No pneumothorax is seen. The bony thorax is grossly intact. Scoliosis is noted in the thoracic spine. IMPRESSION: No active disease in the chest. Electronically signed by: Alex Minaya M.D. 08/03/2017 8:51 PM Dictated Date/Time: 08/03/2017 8:50 PM
[2017-08-03 21:34] LABS: CALCIUM 9.7 mg/dl (8.5-10.1); CKMB 15.6 ng/ml (0.5-3.6); CREATININE 7.89 mg/dl (0.60-1.40); POTASSIUM 3.8 mmol/L (3.5-5.1); TOTAL PROTEIN 8.7 gm/dl (6.4-8.2)
[2017-08-03] MEDS ORDERED: VENL37.593 PO (21:38)
[2017-08-03] MEDS ORDERED: PREG75CA PO (21:38)
[2017-08-03] MEDS ORDERED: PROP40TA5 PO (21:38)
[2017-08-03] MEDS ORDERED: INSPMPNVLG (21:38)
[2017-08-03] MEDS ORDERED: NRV/5 PO (21:38)
[2017-08-03 21:42] VITALS: TEMP 36.3
--- NOTE | 2017-08-03 22:27 | EMERGENCY ROOM VISIT NOTE ---
History Report prepared by Falguni: Kasia Snider Under the Supervision of: Dr. Ascencion Olivo D.O. First contact with patient: 20:02 Chief Complaint: HYPOGLYCEMIA Stated Complaint: HYPERGLYCEMIA Nursing Triage Summary: See triage note History of Present Illness The patient is a 32 year old male who presents to the Emergency Room with complaints of an episode of hypoglycemia starting 6 hours ago. The patient's girlfriend states that she had talked to him on the phone six hours ago before he went out to run errands. She reports that she couldn't get a hold of him and could not get into his apartment, but noticed all of his things were sitting on the table through the window. She reports that at that time she called 911, which was [id number]. The patient's girlfriend denies knowing how long he was unconscious. She states that he came to when EMS arrived and was combative. She notes that this is not the first time this has happened and this is similar to his previous episodes. The patient complains of feeling fatigued. The patient denies any tongue pain. The patient notes that he last ate this afternoon and gave himself insulin at that time. The patient's girlfriend states that he is on dialysis three times a week as well. Source of History: patient, spouse/significant other Onset: 6 hours ago Position: other (global) Quality: other ("Similar to other episodes of hypoglycemia") Timing: other (episode) Associated Symptoms: + LOC, + fatigue Note: The patient denies tongue pain. Review of Systems See HPI for pertinent positives & negatives. A total of 10 systems reviewed and were otherwise negative. Past Medical & Surgical Medical Problems: (1) Anemia (2) Chronic kidney disease, stage IV (severe) (3) CKD (chronic kidney disease) stage V requiring chronic dialysis (4) Diabetic neuropathy (5) DM type 1 (diabetes mellitus, type 1) (6) Dyslipidemia (7) GERD (gastroesophageal reflux disease) (8) HTN (hypertension) (9) steal syndrome left arm (10) Wound, open, foot Surgical Problems: (1) S/p eye procedures (2) S/P tonsillectomy and adenoidectomy Family History Diabetes mellitus FH: heart disease Hypertension FATHER Social History Smoking Status: Current Some Day Smoker Alcohol Use: none Drug Use: none Marital Status: in relationship Housing Status: lives with significant other Occupation Status: disabled Current/Historical Medications Scheduled Amlodipine Besylate (Amlodipine Besylate), 5 MG PO QAM Aspirin (Aspirin Ec), 81 MG PO QAM Calcium Acetate (Phoslo 667 Mg), 667 MG PO BID Cholecalciferol (Vitamin D), 5,000 INTER.UNIT PO QAM Furosemide (Furosemide), 80 MG PO QAM Insulin Aspart (novoLOG INSULIN PUMP ), 1 EA N/A UD Multivitamin (Multivitamin), 1 TAB PO QAM Pregabalin (Lyrica), 75 MG PO BID Propranolol Hcl (Propranolol Hcl), 80 MG PO BID Ropinirole (Requip), 0.5 MG PO HS Venlafaxine Hcl (Venlafaxine Extended Rel), 37.5 MG PO QPM Scheduled PRN Glucagon (Glucagon Emergency Kit), 1 DOSE UD PRN for HYPOGLYCEMIA PROTOCOL Loperamide Hcl (Imodium A-D), 2 MG PO UD PRN for Diarrhea Allergies Coded Allergies: Penicillins (Verified Allergy, Intermediate, RASH A CHILD; HAS HAD AMOXICILLIN W/O PROBLEM, 07/28/17) BLAIR Inhibitors (Verified Adverse Reaction, Intermediate, hyperkalemia, 07/03) Angiotensin Receptor Blockers (Verified Adverse Reaction, Intermediate, hyperkalemia, 07/28/17) Physical Exam Vital Signs Date Time Temp Pulse Resp B/P (MAP) Pulse Ox O2 Delivery O2 Flow Rate FiO2 08/03/17 22:30 84 16 110/62 98 08/03/17 21:42 36.3 81 14 105/58 100 Room Air 08/03/17 20:03 171/108 08/03/17 20:02 85 08/03/17 19:45 34.1 87 16 214/130 100 Room Air Physical Exam CONSTITUTIONAL/VITAL SIGNS: Reviewed / noted above. GENERAL: Non-toxic in appearance. INTEGUMENTARY: Warm, dry, and [place]. HEAD: Normocephalic. EYES: without scleral icterus or trauma. ENT/OROPHARYNX: clear and moist. LYMPHADENOPATHY/NECK: Is supple without lymphadenopathy or meningismus. RESPIRATORY: Lungs clear and equal. CARDIOVASCULAR: Regular rate and rhythm. GI/ABDOMEN: Soft and nontender. No organomegaly or pulsatile mass. No rebound or guarding. Normal bowel sounds. EXTREMITIES: Warm and well perfused. BACK: No CVA tenderness. NEUROLOGICAL: Somewhat tired. Answers questions appropriately. Moves all extremities. Generalized weakness. PSYCHIATRIC: normal affect. MUSCULOSKELETAL: Normally developed with good muscle tone. Medical Decision & Procedures ER Provider Diagnostic Interpretation: Radiology results as stated below per my review and radiologist interpretation: SINGLE VIEW CHEST CLINICAL HISTORY: Weakness. Change in mental status. FINDINGS: An AP, portable, upright chest radiograph is compared to study dated 07/25/2016. The examination is degraded by portable technique and patient rotation. The cardiomediastinal silhouette is unremarkable. The lungs and pleural spaces are clear. No pneumothorax is seen. The bony thorax is grossly intact. Scoliosis is noted in the thoracic spine. IMPRESSION: No active disease in the chest. Electronically signed by: Alex Minaya M.D. 08/03/2017 8:51 PM Dictated Date/Time: 08/03/2017 8:50 PM Laboratory Results 08/03/17 20:40 Red Blood Count 4.45, Mean Corpuscular Volume 91.7, Mean Corpuscular Hemoglobin 30.6, Mean Corpuscular Hemoglobin Concent 33.3, Mean Platelet Volume 10.5, Neutrophils (%) (Auto) 73.8, Lymphocytes (%) (Auto) 17.7, Monocytes (%) (Auto) 4.8, Eosinophils (%) (Auto) 3.1, Basophils (%) (Auto) 0.4, Neutrophils # (Auto) 7.82, Lymphocytes # (Auto) 1.87, Monocytes # (Auto) 0.51, Eosinophils # (Auto) 0.33, Basophils # (Auto) 0.04 08/03/17 20:40 Test 08/03/17 19:57 08/03/17 20:40 Bedside Glucose 55 mg/dl (70-99) White Blood Count 10.59 K/uL (4.8-10.8) Red Blood Count 4.45 M/uL (4.7-6.1) Hemoglobin 13.6 g/dL (14.0-18.0) Hematocrit 40.8 % (42-52) Mean Corpuscular Volume 91.7 fL (80-100) Mean Corpuscular Hemoglobin 30.6 pg (25-34) Mean Corpuscular Hemoglobin Concent 33.3 g/dl (32-36) Platelet Count 171 K/uL (130-400) Mean Platelet Volume 10.5 fL (7.4-10.4) Neutrophils (%) (Auto) 73.8 % Lymphocytes (%) (Auto) 17.7 % Monocytes (%) (Auto) 4.8 % Eosinophils (%) (Auto) 3.1 % Basophils (%) (Auto) 0.4 % Neutrophils # (Auto) 7.82 K/uL (1.4-6.5) Lymphocytes # (Auto) 1.87 K/uL (1.2-3.4) Monocytes # (Auto) 0.51 K/uL (0.11-0.59) Eosinophils # (Auto) 0.33 K/uL (0-0.5) Basophils # (Auto) 0.04 K/uL (0-0.2) RDW Standard Deviation 47.7 fL (36.4-46.3) RDW Coefficient of Variation 14.2 % (11.5-14.5) Immature Granulocyte % (Auto) 0.2 % Immature Granulocyte # (Auto) 0.02 K/uL (0.00-0.02) Anion Gap 11.0 mmol/L (3-11) Est Creatinine Clear Calc Drug Dose 13.2 ml/min Estimated GFR () 9.3 Estimated GFR (Non- 8.0 BUN/Creatinine Ratio 6.3 (10-20) Calcium Level 9.7 mg/dl (8.5-10.1) Magnesium Level 2.9 mg/dl (1.8-2.4) Total Bilirubin 1.7 mg/dl (0.2-1) Direct Bilirubin 0.2 mg/dl (0-0.2) Aspartate Amino Transf (AST/SGOT) 30 U/L (15-37) Alanine Aminotransferase (ALT/SGPT) 29 U/L (12-78) Alkaline Phosphatase 99 U/L (45-117) Total Creatine Kinase 840 U/L (39-308) Creatine Kinase MB 15.6 ng/ml (0.5-3.6) Creatine Kinase MB Ratio 1.9 (0-3.0) Total Protein 8.7 gm/dl (6.4-8.2) Albumin 4.0 gm/dl (3.4-5.0) Lipase 86 U/L (73-393) Thyroid Stimulating Hormone (TSH) 1.630 uIu/ml (0.300-4.500) Laboratory results as stated above per my review. ED Course 2015: Previous medical records were reviewed. The patient was evaluated in room B6. A complete history and physical examination was performed. 2233: On reevaluation, the patient is resting comfortably. I discussed the results and findings with the patient. He verbalized agreement of the treatment plan. The patient was discharged home. Medical Decision Differential includes acute coronary syndrome, myocardial infarction, CVA, TIA, anemia, infection, pneumonia, UTI, pyelonephritis, poor nutrition, dehydration, electrolyte disturbance,hypoglycemia. This is a 32-year-old male who presents to the ED with a chief complaint of hypoglycemia. The patient's was last known well around 2:30. This was before he went out to run some errands. He may have gotten back around 3:30. The friend checked on him and he cannot get into his apartment and therefore called EMS around 6:30. He was found unresponsive. Blood sugar was low per EMS. He was given D50 that improves his blood sugar, but the patient was agitated and combative. He was given 2 mg IM Ativan and brought here for evaluation. On my evaluation, the patient is feeling better. He is currently awake, alert and oriented. He is going to be discharged with his friend. Medication Reconcilliation Current Medication List: was personally reviewed by me Blood Pressure Screening Patient's blood pressure: Elevated blood pressure Blood pressure disposition: Referred to PCP Impression Primary Impression: Hypoglycemia Scribe Attestation The scribe's documentation has been prepared under my direction and personally reviewed by me in its entirety. I confirm that the note above accurately reflects all work, treatment, procedures, and medical decision making performed by me. Departure Information Dispostion Home / Self-Care Referrals Damian Ibarra M.D.([facility]) (PCP) Forms HOME CARE DOCUMENTATION FORM, IMPORTANT VISIT INFORMATION, WORK / SCHOOL INSTRUCTIONS Patient Instructions My [facility] Additional Instructions Follow-up with your doctor for further care and evaluation in 1-2 days. Return to the emergency department for worsening or new symptoms or any concerns. You have been examined and treated today on an emergency basis only. This is not a substitute for, or an effort to provide, complete comprehensive medical care. It is impossible to recognize and treat all injuries or illnesses in a single emergency department visit. It is therefore important that you follow up closely with your doctor. Call as soon as possible for an appointment.
[2017-08-03 22:30] VITALS: BP 110/62; PULSE 84; O2SAT 98
== END 2017-08-03 22:30 | disposition home or self-care (01) ==
LOC: EDBD 19:38 → C.EDB 19:39
DX: E16.2 Hypoglycemia, unspecified (principal); I12.0 Hypertensive chronic kidney disease with stage 5 chronic kidney disease or end stage renal disease; N18.5 Chronic kidney disease, stage 5; Z99.2 Dependence on renal dialysis; E10.40 Type 1 diabetes mellitus with diabetic neuropathy, unspecified; F17.200 Nicotine dependence, unspecified, uncomplicated; Z79.4 Long term (current) use of insulin; Z79.82 Long term (current) use of aspirin; Z83.3 Family history of diabetes mellitus

== ENCOUNTER → 2017-08-08 | Day surgery (SDC) | payer OTHER ==
[2017-07-28 14:40] VITALS: BMI 24.0
[~2017-08-08] VITALS: Ht 175.3 cm; Wt 74.5 kg
[~2017-08-08] MED LIST changes: +ATROPINE SULFATE 0.1 MG/ML 5ML SYR IV PRN; +CLINDAMYCIN 600 MG/54 ML D5W IV SCH; +D5W AND 1/4NSS 1000 ML IV SCH; +EpHEDrine SULFATE INJ 50 MG/ML AMP IV PRN; +FENTANYL CITRATE INJ 50 MCG/1 ML 2 ML VIAL IV PRN; +FENTANYL CITRATE INJ 50 MCG/1 ML 2 ML VIAL ONE; +FLUMAZENIL 0.1 MG/1 ML 10 ML VIAL IV PRN; +HYDROmorphone INJ 2 MG/ML SYR/VIAL IV PRN; +INSPMPNVLG; +LABETALOL HCL IV 5 MG/ML 20ML IV PRN; +LIDOCAINE HCL 1% 20 ML VIAL INJ ONE; +MEPERIDINE HCL 25 MG/ML CARP IV PRN; +MIDAZOLAM HCL 1 MG/ML 2ML VIAL ONE; +NALOXONE HCL 0.4 MG/1 ML VIAL/CARP IV PRN; +NRV/5 PO; +ONDANSETRON INJ 2 MG/ML 2 ML VIAL IV PRN; +OPTIRAY 300 IV ONE; +PHENYLEPHRINE 100MCG/ML 5ML SYR IV PRN; +PREG75CA PO; +PROP40TA5 PO; +PROPOFOL IV EMULSION 10 MG/ML 20 ML VIAL IV ONE; +SODIUM CHLORIDE 0.9% 1000ML 1,000 ML IV SCH; +VENL37.593 PO
[2017-08-08 09:48] VITALS: BP 133/85; PULSE 84; TEMP 36.7; O2SAT 99; Ht 175.3 cm; Wt 74.5 kg
[2017-08-08 10:24] LABS: CALCIUM 9.1 mg/dl (8.5-10.1); CREATININE 7.03 mg/dl (0.60-1.40); POTASSIUM 4.5 mmol/L (3.5-5.1)
--- NOTE | 2017-08-08 10:25 | History and Physical ---
History & Physical Date of Service Aug 08, 2017. History & Physical History & Physical Chief Complaint: End stage renal disease with malfunctioning fistula History of Present Illness The patient is a 30 year old male with DM and HTN with renal failure who now has a mafunctioning avf with high venous pressures. he is admitted now for a fistulogram with possible intervention. Allergies Coded Allergies: Penicillins (Verified Allergy, Intermediate, RASH, 05/22/15) BLAIR Inhibitors (Verified Adverse Reaction, Intermediate, hyperkalcemia, ) Angiotensin Receptor Blockers (Verified Adverse Reaction, Intermediate, hyperkalcemia, 05/22/15) Surgical / Medical History Hx Cardiac Surgery: No Hx Abdominal Surgery: No Hx Cancer Surgery: No Hx Thoracic Surgery: No Hx Orthopedic: No Hx Urinary Tract Surgery: No HX Other Surgery: Yes (TONSILLECOMY) Past Medical/Surgical History: Diabetes, Hypertension Family History Diabetes mellitus FH: heart disease Hypertension Social History Smoking Status: Former Smoker Hx Tobacco Use In Past Year?: No Hx Alcohol Use - Type & Amnt: No Hx Substance Use -Type & Amnt: No Review of Systems Constitutional: No chills, No diaphoresis, No fatigue, No fever, No malaise, No problem reported, No sweats, No weakness, No weight gain, No weight loss Respiratory: No ESPINAL, No PND, No cough, No cyanosis, No dyspnea, No hemoptysis, No orthopnea, No problem reported, No short of breath, No sputum production, No stridor, No wheezing Cardiovascular: No chest pain, No chest pressure, No chest tightness, No cyanosis, No diaphoresis, No edema, No intermittent claudication, No lightheadedness, No mumur, No orthopnea, No palpitations, No paroxysmal nocturnal dyspnea, No problem reported, No syncope Gastrointestinal: No abdominal pain, No anorexia, No appetite changes, No belching, No constipation, No diarrhea, No dysphagia, No flatulence, No food intolerance, No heartburn, No hematemesis, No hematochezia, No hemorrhoids, No indigestion, No nausea, No problem reported, No rectal bleeding, No stool changes, No vomiting Musculoskeletal: No back pain, No gout, No joint pain, No joint swelling, No muscle pain, No muscle stiffness, No muscle weakness, No neck pain, No problem reported Neurologic: No LOC, No dizziness, No headache, No lethargy, No memory loss, No numbness, No paresthesia, No pre-existing deficit, No problem reported, No seizures, No tics, No tingling, No tremors, No vertigo, No weakness Psychiatric: No alcohol abuse, No anxiety, No auditory hallucinations, No depression, No drug abuse, No homicidal ideation, No mood changes, No problem reported, No suicidal ideation, No visual hallucinations Physical Exam: Constitutional: General Apperance: heathly-appearing, well-nourished, well-developed Level of Distress: NAD Ambulation: ambulating normally Psychiatric: Mental Status: active & alert, normal mood, normal affect Orientation: oriented except where noted, to time, to place, to person ENMT: normal ENT inspection Neck: supple Lungs: Auscultation: breath sounds normal Cardiovascular: Heart Auscultation: RRR Peripheral Pulses: Pulses: full and equal, in all extremities except if noted Abdomen: Inspection & Palpation: soft Musculoskeletal: normal, normal strength (5/5 throughout), normal tone Extremities: Upper Right: no cyanosis, no edema, no varicosities, no palpable cord, no clubbing, no ulcers, no mottling, significant right hand weakness to grasp Upper Left: no cyanosis, no edema, no varicosities, no palpable cord, no clubbing, no ulcers, no mottling, good thrill and bruit in the fistula Lower Right: no cyanosis, no edema, no varicosities, no palpable cord, no clubbing, no ulcers, no mottling Lower Left: no cyanosis, no edema, no varicosities, no palpable cord, no clubbing, no ulcers, no mottling Neurologic: Cranial Nerves: grossly intact Sensation: grossly intact Imp: Right upper extremity steal syndrome End stage renal disease Functioning av fistula HTN DM Plan: Patient admitted for a fistulogram with possible intervention. I have discussed the risks options and benefits of the procedure with the patient. The patient understands the risks options and benefits and agrees to the procedure.
--- NOTE | 2017-08-08 11:45 | [facility] Post Operative Brief Note ---
Immediate Operative Summary Operative Date Aug 08, 2017. Pre-Operative Diagnosis malfuctioning fistula Post-Operative Diagnosis Large side branch of fistula, no stenosis Procedure(s) Performed Fistulogram Right Arm, Embolization Of Side Branch Surgeon Dr. Michelle Ring Barker Operator Surgeon(s) none Estimated Blood Loss 15 ml Findings Consistent with Post-Op Diagnosis Specimens none Drains None Anesthesia Type MAC Complication(s) none Disposition Disposition:
--- NOTE | 2017-08-08 11:48 | Discharge Instructions ---
Discharge Instructions Date of Service Aug 08, 2017. Visit Reason for Visit: End Stage Renal Disease -On Hemodialysis Discharge Discharge Diagnosis / Problem: Malfunctioning fistula Discharge Goals Goal(s): Therapeutic intervention Activity Recommendations Activity Limitations: per Instructions/Follow-up section Anesthesia . Post Anesthesia Instructions: If you have had General Anesthesia or IV Sedation: * Do not drive today. * Resume driving when surgeon permits. * Do not make important decisions or sign legal documents today. * Call surgeon for: 1. Temperature elevations greater than 101 degrees F. 2. Uncontrollable pain. 3. Excessive bleeding. 4. Persistent nausea and vomiting. 5. Medication intolerance (nausea, vomiting or rash). * For nausea and vomiting use only clear liquids such as: tea, soda, bouillon until nausea subsides, then gradually increase diet as tolerated. * If you have any concerns or questions, call your surgeon's office. If physician is unavailable and it is an emergency, call 911 or go to the nearest emergency room. . Instructions / Follow-Up Instructions / Follow-Up Call [phone] with any questions or concerns. SPECIAL CARE INSTRUCTIONS: Medications: * Continue to take your medications as directed. If you have been given a prescription for Plavix, please fill it immediately and take as directed. Incision Care: * Your puncture site may have some bruising and minor swelling for about one week. * You will have a small dressing covering your puncture site. You may remove the dressing after 24 hours and shower. You may let the warm soapy water run over it, but be sure to dry the puncture site well and keep it dry. * DO NOT IMMERSE THE INCISION IN A TUB/POOL/etc. UNTIL HEALED. * Puncture sites should be kept covered with a band-aid until it begins to heal. Restrictions: * Depending on whether you leg or arm was punctured to access the arteries, you will be required to lay flat, hold your arm still, or both, for about 4 hours after the procedure to prevent bleeding. * Limit your activity for the first 48 hours. You may walk and go up and down steps. Avoid excessive bending or movement at the puncture site. Possible Complications: * Excessive Swelling - after blood flow is improved you may notice increased swelling in the lower legs. This is a normal response. This usually depends on the amount of blockages in the leg, how long they have been there prior to your procedure and how much blood flow was restored. Elevating your legs will help to improve this. Please notify our office ([phone] ) if the swelling does not go away after lying in bed overnight. * Infection/Drainage/Bleeding - Drainage or bleeding from the puncture site should be minimal. If you have excessive bleeding or drainage, call our office ([phone]) right away. * Pain - You may experience some mild pain or soreness at your puncture site. If your pain does not improve, please contact our office ([phone]). Call your doctor and seek emergent treatment if you develop: * Temperature above 101 degrees * Any fever or chills * Any redness or purulent drainage from the puncture site * Any new dusky/blue colored toes or feet with coolness or sharp or aching pain. SKIN IRRITATION: * You may experience some redness and/or swelling in the area where radiation was administered. If any skin irritation occurs, please contact your family physician. FOLLOW UP VISIT: Keep any scheduled doctor appointments. Diet Recommendations Recommended Home Diet: resume previous diet Procedures Procedures Performed: Fistulogram Right Arm, Embolization Of Side Branch Pending Studies Studies pending at discharge: no Medical Emergencies . Who to Call and When: Medical Emergencies: If at any time you feel your situation is an emergency, please call 911 immediately. . Non-Emergent Contact Non-Emergency issues call your: Surgeon . . "Provider Documentation" section prepared by Eugene Michelle. .
--- NOTE | 2017-08-08 11:55 | [facility] Operative Report ---
Operative Report Operative Date Aug 08, 2017. Pre-Operative Diagnosis malfuctioning fistula Post-Operative Diagnosis Large side branch of fistula, no stenosis Procedure(s) Performed Fistulogram Right Arm, Embolization Of Side Branch Surgeon Dr. Michelle Head Of Store Operations Surgeon(s) none Estimated Blood Loss 15 ml Findings no stenosis, large side branch noted Specimens none Anesthesia MAC Complication(s) None Disposition Indications This is a 32-year-old male with a right upper arm fistula. They were having a malfunctioning of the fistula at dialysis. Fistulogram was recommended with with possible intervention. I have discussed the risks options and benefits of the procedure with the patient. The patient understands the risks options and benefits and agrees to the procedure. Description of Procedure The patient was taken to the angiogram suite and placed in the supine position. The right arm was then prepped and draped in a sterile manner. Local anesthetic was administered and a percutaneous puncture was then made of the proximal portion of the right arm AV fistula using micropuncture technique. Micropuncture wire and sheath were then inserted. A fistulogram was then performed. Fistulogram showed a widely patent fistula. No evidence of stenosis was seen throughout the fistula from the puncture site up through the superior vena cava. Compression was done of the fistula and a retrograde injection was performed which showed the proximal portion of the fistula also widely patent without any evidence stenosis. The arterial anastomosis was widely patent without narrowing. There was a very large side branch seen coming off the fistula in the proximal portion of the venous aneurysm. It was decided to embolize this branch. We could not cannulate the branch with a catheter due to the angle. We therefore punctured the branch of the fistula distally. We did place a 6 [place] sheath after the micropuncture catheter was inserted. A #10 Amplatz 2 plug was then inserted. It was deployed in the large fistula branch without difficulty. Injection of the fistula showed the position of the plug to be good . There is very little flow now going through the branch. Both sheaths were then pulled and pressure was applied. Adequate hemostasis was obtained. The patient left the angiogram suite in good condition and tolerated the procedure well. I attest to the content of the Intraoperative Record and any orders documented therein. Any exceptions are noted below.
[2017-08-08 11:56] VITALS: BP 155/90; PULSE 83; TEMP 36.9; O2SAT 96
--- NOTE | 2017-08-08 12:06 | Anesthesiology Progress Note ---
Anesthesia Post Op Note Date & Time Aug 08, 2017 at 12:06 Vital Signs Pain Intensity: 0 Vital Signs Past 12 Hours Date Time Temp Pulse Resp B/P (MAP) Pulse Ox O2 Delivery O2 Flow Rate FiO2 08/08/17 09:48 36.7 84 18 133/85 (101) 99 Room Air Notes Mental Status: alert / awake / arousable, participated in evaluation Pt Amnestic to Procedure: Yes Nausea / Vomiting: adequately controlled Pain: adequately controlled Airway Patency, RR, SpO2: stable & adequate BP & HR: stable & adequate Hydration State: stable & adequate Anesthetic Complications: no major complications apparent
[2017-08-08 12:10] VITALS: BP 137/86; PULSE 82; O2SAT 96
[2017-08-08 12:25] VITALS: BP 138/84; PULSE 81; TEMP 36.7; O2SAT 96
[2017-08-08 12:45] VITALS: BP 137/86; PULSE 82; O2SAT 95
== END | disposition home or self-care (01) ==
LOC: C.ACU 09:20
PROVIDERS: ATTEND Surgery Vascular Surgery
DX: T82.898A Other specified complication of vascular prosthetic devices, implants and grafts, initial encounter (principal); Y83.8 Other surgical procedures as the cause of abnormal reaction of the patient, or of later complication, without mention of misadventure at the time of the procedure; N18.6 End stage renal disease; I12.0 Hypertensive chronic kidney disease with stage 5 chronic kidney disease or end stage renal disease; E11.22 Type 2 diabetes mellitus with diabetic chronic kidney disease; Z90.89 Acquired absence of other organs; Z87.891 Personal history of nicotine dependence; Z98.890 Other specified postprocedural states; Z88.0 Allergy status to penicillin; Z79.4 Long term (current) use of insulin; Z83.3 Family history of diabetes mellitus; Z82.49 Family history of ischemic heart disease and other diseases of the circulatory system

== ENCOUNTER 2017-09-14 15:10 | Emergency (ER) | payer OTHER ==
[~2017-09-14] VITALS: Ht 175.3 cm; Wt 77.9 kg
[~2017-09-14 15:10] MED LIST changes: -ATROPINE SULFATE 0.1 MG/ML 5ML SYR IV PRN; -CLINDAMYCIN 600 MG/54 ML D5W IV SCH; -D5W AND 1/4NSS 1000 ML IV SCH; -EpHEDrine SULFATE INJ 50 MG/ML AMP IV PRN; -FENTANYL CITRATE INJ 50 MCG/1 ML 2 ML VIAL IV PRN; -FENTANYL CITRATE INJ 50 MCG/1 ML 2 ML VIAL ONE; -FLUMAZENIL 0.1 MG/1 ML 10 ML VIAL IV PRN; -HYDROmorphone INJ 2 MG/ML SYR/VIAL IV PRN; -LABETALOL HCL IV 5 MG/ML 20ML IV PRN; -LIDOCAINE HCL 1% 20 ML VIAL INJ ONE; -MEPERIDINE HCL 25 MG/ML CARP IV PRN; -MIDAZOLAM HCL 1 MG/ML 2ML VIAL ONE; -NALOXONE HCL 0.4 MG/1 ML VIAL/CARP IV PRN; -ONDANSETRON INJ 2 MG/ML 2 ML VIAL IV PRN; -OPTIRAY 300 IV ONE; -PHENYLEPHRINE 100MCG/ML 5ML SYR IV PRN; -PROPOFOL IV EMULSION 10 MG/ML 20 ML VIAL IV ONE; -SODIUM CHLORIDE 0.9% 1000ML 1,000 ML IV SCH
[2017-09-14 15:25] VITALS: Ht 175.3 cm; Wt 77.9 kg
--- NOTE | 2017-09-14 15:44 | EMERGENCY ROOM VISIT NOTE ---
History First contact with patient: 15:23 Chief Complaint: HYPOGLYCEMIA Stated Complaint: SEIZURE/ Nursing Triage Summary: arrival acls bsg on scene was 30 med given 74. hAS INSULIN pump History of Present Illness The patient is a 32 year old male who presents to the Emergency Room via als after being found unresponsive. The story is somewhat unclear. Patient does not seem to be able to recall much of the events leading up to his arrival to the ED. He has a nasal trumpet which he states was placed by EMS. Nursing reports that the patient was on a [employer] bus in front of a [facility] and was weak and shaky. 911 was called and when they arrived, his BSG was 33. He was reportedly unresponsive when EMS arrived. He received narcan and glucagon after which he was awake. His bsg was 73 then. The patient can't remember where he was or what he was doing this morning. He is very groggy at the moment and answers minimally. He does have a h/o of type 1 DM, on insulin pump. He reports that he has hypoglycemic events often. Smokes occasionally, denies alcohol and drug use. Denies narcotic use. Review of Systems See above for pertinent positives & negatives. A total of 10 systems reviewed and were otherwise negative. Past Medical/Surgical History Medical Problems: (1) Anemia (2) Chronic kidney disease, stage IV (severe) (3) CKD (chronic kidney disease) stage V requiring chronic dialysis (4) Diabetic neuropathy (5) DM type 1 (diabetes mellitus, type 1) (6) Dyslipidemia (7) GERD (gastroesophageal reflux disease) (8) HTN (hypertension) (9) steal syndrome left arm (10) Wound, open, foot Surgical Problems: (1) S/p eye procedures (2) S/P tonsillectomy and adenoidectomy Family History Diabetes mellitus FH: heart disease Hypertension FATHER Social History Smoking Status: Current Every Day Smoker Alcohol Use: none Drug Use: none Marital Status: in relationship Housing Status: lives with significant other Occupation Status: disabled Current/Historical Medications Scheduled Aspirin (Aspirin Ec), 81 MG PO QAM Calcium Acetate (Phoslo 667 Mg), 667 MG PO BID Cholecalciferol (Vitamin D), 5,000 INTER.UNIT PO QAM Furosemide (Furosemide), 80 MG PO QAM Insulin Aspart (novoLOG INSULIN PUMP ), 1 EA N/A UD Multivitamin (Multivitamin), 1 TAB PO QAM Pregabalin (Lyrica), 75 MG PO BID Propranolol Hcl (Propranolol Hcl), 80 MG PO BID Ropinirole (Requip), 0.5 MG PO HS Venlafaxine Hcl (Venlafaxine Extended Rel), 37.5 MG PO QPM Scheduled PRN Glucagon (Glucagon Emergency Kit), 1 DOSE UD PRN for HYPOGLYCEMIA PROTOCOL Physical Exam Vital Signs Date Time Temp Pulse Resp B/P (MAP) Pulse Ox O2 Delivery O2 Flow Rate FiO2 09/14/17 18:20 158/107 09/14/17 18:10 87 16 179/117 96 Room Air 09/14/17 18:00 36.5 09/14/17 16:15 82 14 198/128 Room Air 09/14/17 15:25 78 12 209/129 100 Room Air 09/14/17 15:24 78 Physical Exam GENERAL: Patient is a awake, drowsy, does answer questions slowly. FOllows simple commands HEAD: Normocephalic atraumatic EYES: Ocular movements intact pupils equal and react to light OROPHARYNX mucous membranes are moist no exudates present no erythema or edema present NECK: Supple. no LAD CHEST: no wheezing, rales or ronchi LUNGS: Clear and equal to auscultation CARDIAC: Normal S1 and S2 ABDOMEN: Soft nontender no guarding BACK: No CVA tenderness EXTREMITIES: Fistula right arm.Alert and oriented x3 Cranial Nerves 2-12 grossly intact Medical Decision & Procedures Laboratory Results 09/14/17 16:32 Red Blood Count 4.96, Mean Corpuscular Volume 91.7, Mean Corpuscular Hemoglobin 30.8, Mean Corpuscular Hemoglobin Concent 33.6, Mean Platelet Volume 10.4, Neutrophils (%) (Auto) 81.8, Lymphocytes (%) (Auto) 11.2, Monocytes (%) (Auto) 4.0, Eosinophils (%) (Auto) 2.3, Basophils (%) (Auto) 0.3, Neutrophils # (Auto) 16.29, Lymphocytes # (Auto) 2.23, Monocytes # (Auto) 0.79, Eosinophils # (Auto) 0.45, Basophils # (Auto) 0.06 09/14/17 16:32 Test 09/14/17 16:32 09/14/17 18:14 White Blood Count 19.89 K/uL (4.8-10.8) Red Blood Count 4.96 M/uL (4.7-6.1) Hemoglobin 15.3 g/dL (14.0-18.0) Hematocrit 45.5 % (42-52) Mean Corpuscular Volume 91.7 fL (80-100) Mean Corpuscular Hemoglobin 30.8 pg (25-34) Mean Corpuscular Hemoglobin Concent 33.6 g/dl (32-36) Platelet Count 166 K/uL (130-400) Mean Platelet Volume 10.4 fL (7.4-10.4) Neutrophils (%) (Auto) 81.8 % Lymphocytes (%) (Auto) 11.2 % Monocytes (%) (Auto) 4.0 % Eosinophils (%) (Auto) 2.3 % Basophils (%) (Auto) 0.3 % Neutrophils # (Auto) 16.29 K/uL (1.4-6.5) Lymphocytes # (Auto) 2.23 K/uL (1.2-3.4) Monocytes # (Auto) 0.79 K/uL (0.11-0.59) Eosinophils # (Auto) 0.45 K/uL (0-0.5) Basophils # (Auto) 0.06 K/uL (0-0.2) RDW Standard Deviation 44.3 fL (36.4-46.3) RDW Coefficient of Variation 13.3 % (11.5-14.5) Immature Granulocyte % (Auto) 0.4 % Immature Granulocyte # (Auto) 0.07 K/uL (0.00-0.02) Venous Blood pH 7.34 (7.36-7.41) Venous Blood Partial Pressure CO2 52 mmHg (38.0-50.0) Venous Blood Partial Pressure O2 39 mmHg Venous Blood HCO3 28 mmol/L Venous Blood Oxygen Saturation 69.6 % Venous Blood Base Excess 1.0 mEq/L Anion Gap 9.0 mmol/L (3-11) Est Creatinine Clear Calc Drug Dose 12.8 ml/min Estimated GFR () 9.0 Estimated GFR (Non- 7.7 BUN/Creatinine Ratio 4.8 (10-20) Calcium Level 9.1 mg/dl (8.5-10.1) Total Bilirubin 1.4 mg/dl (0.2-1) Aspartate Amino Transf (AST/SGOT) 29 U/L (15-37) Alanine Aminotransferase (ALT/SGPT) 30 U/L (12-78) Alkaline Phosphatase 101 U/L (45-117) Total Protein 8.5 gm/dl (6.4-8.2) Albumin 4.0 gm/dl (3.4-5.0) Globulin 4.5 gm/dl (2.5-4.0) Albumin/Globulin Ratio 0.9 (0.9-2) Chemistry Specimen Hemolysis Bedside Glucose 223 mg/dl (70-99) Medications Administered Medications (Trade) Dose Ordered Sig/Lynda Route Start Time Stop Time Status Last Admin Dose Admin Sodium Chloride 500 ml @ 999 mls/hr Q31M IV 09/14/17 16:30 09/14/17 19:23 DC 09/14/17 16:30 999 MLS/HR Propranolol HCl (Inderal Tab) 80 mg NOW STAT PO 09/14/17 17:19 09/14/17 17:21 DC 09/14/17 18:12 80 MG ED Course 1530 Patient was evaluated in b7. a complete history and physical was performed. 1550 BLood work, imaging ordered. Nurse instructed to check blood sugar q30 min. Bsg in the ED 130's. Instructed to eat 1630: Ordered NSS bolus 1716: Girlfriend reports that confusion and hypertension are normal for him after hypoglycemic events. she also reports that he missed his propanolol dose. 1811: Propanol given 1814: DIscharge instructions provided Medical Decision This is a 32 y/o M w/ a h/o of Type 1 DM who presents after being found unresponsive by ALS. There was concern about hypoglycemic episode vs. Seizure. This episode seems more consistent with hypoglycemia. CBC does reveal leucocytosis that is likely reactive 2/2 to hypoglycemia rather than infection as there is no other evidence of infection. CMP reveals high creatinine consistent with ESRD. Bsg's were average here 100- 200s. Chest Xray was normal. He was able to maintain his bsg with PO take, and his insulin Pump. Hypertension was treated with propanol. THe patient was feeling better and back to his baseline. All follow up and discharge instructions were discussed. All questions were answered. Impression Primary Impression: Hypoglycemia Additional Impression: HTN (hypertension) Departure Information Referrals Damian Ibarra M.D.([facility]) (PCP) Patient Instructions My [facility] Problem Qualifiers
--- NOTE | 2017-09-14 16:16 | EMERGENCY ROOM VISIT NOTE ---
History Report prepared by Falguni: David Crouch Under the Supervision of: Dr. Alex Garcia M.D. First contact with patient: 15:23 Chief Complaint: HYPOGLYCEMIA Stated Complaint: SEIZURE/ Nursing Triage Summary: arrival acls bsg on scene was 30 med given 74. hAS INSULIN pump History of Present Illness The patient is a 32 year old male who presents to the Emergency Room with concerns over hypoglycemic blood sugar levels and a syncopal episode. The patient does not remember what happened during the episode, and this HPI was acquired primarily via EMS and the Nursing staff. The last thing the patient remembers was sitting on the [employer]. Per EMS the patient was riding the [employer] bus when he had a syncopal episode. Witnesses state that the patient went unconscious. When EMS arrived the patient's blood sugar was 33 via a finger stick. They administered Glucagon and the patient went unconscious again shortly after. He was unresponsive for 3-5 minutes during this time. When the patient woke up, his blood sugar was up to 73. The patient added that he felt fine all day today and has not had any recent illnesses. Source of History: EMS, nursing staff Onset: Shortly [employer] Position: other (Neuro) Quality: other (Syncope) Note: Hypoglycemic Review of Systems See HPI for pertinent positives & negatives. A total of 10 systems reviewed and were otherwise negative. Past Medical & Surgical Medical Problems: (1) Anemia (2) Chronic kidney disease, stage IV (severe) (3) CKD (chronic kidney disease) stage V requiring chronic dialysis (4) Diabetic neuropathy (5) DM type 1 (diabetes mellitus, type 1) (6) Dyslipidemia (7) GERD (gastroesophageal reflux disease) (8) HTN (hypertension) (9) steal syndrome left arm (10) Wound, open, foot Surgical Problems: (1) S/p eye procedures (2) S/P tonsillectomy and adenoidectomy Family History Diabetes mellitus FH: heart disease Hypertension FATHER Social History Smoking Status: Current Every Day Smoker Alcohol Use: none Drug Use: none Marital Status: in relationship Housing Status: lives with significant other Occupation Status: disabled Current/Historical Medications Scheduled Aspirin (Aspirin Ec), 81 MG PO QAM Calcium Acetate (Phoslo 667 Mg), 667 MG PO BID Cholecalciferol (Vitamin D), 5,000 INTER.UNIT PO QAM Furosemide (Furosemide), 80 MG PO QAM Insulin Aspart (novoLOG INSULIN PUMP ), 1 EA N/A UD Multivitamin (Multivitamin), 1 TAB PO QAM Pregabalin (Lyrica), 75 MG PO BID Propranolol Hcl (Propranolol Hcl), 80 MG PO BID Ropinirole (Requip), 0.5 MG PO HS Venlafaxine Hcl (Venlafaxine Extended Rel), 37.5 MG PO QPM Scheduled PRN Glucagon (Glucagon Emergency Kit), 1 DOSE UD PRN for HYPOGLYCEMIA PROTOCOL Allergies Coded Allergies: Penicillins (Verified Allergy, Intermediate, RASH A CHILD; HAS HAD AMOXICILLIN W/O PROBLEM, 09/14/17) BLAIR Inhibitors (Verified Adverse Reaction, Intermediate, hyperkalemia, 09/14) Angiotensin Receptor Blockers (Verified Adverse Reaction, Intermediate, hyperkalemia, 09/14/17) Physical Exam Vital Signs Date Time Temp Pulse Resp B/P (MAP) Pulse Ox O2 Delivery O2 Flow Rate FiO2 09/14/17 18:10 87 16 179/117 96 Room Air 09/14/17 16:15 82 14 198/128 Room Air 09/14/17 15:25 78 12 209/129 100 Room Air 09/14/17 15:24 78 Physical Exam GENERAL: Patient is in no acute distress. HEENT: No acute trauma, normocephalic atraumatic, mucous membranes moist, no nasal congestion, no scleral icterus. NECK: No stridor, no adenopathy, no meningismus, trachea is midline. LUNGS: Clear to auscultation bilaterally, no wheeze, no rhonchi, breath sounds equal. HEART: Without murmurs gallops or rubs, regular rate and rhythm. ABDOMEN: Soft, nontender, bowel sounds positive, no hernias, no peritonitis. EXTREMITIES: No cyanosis or edema, full range of motion of all the joints without pain or difficulty, no signs for acute trauma. NEUROLOGIC: Oriented x 3, no acute motor or sensory deficits, no focal weakness. SKIN: No rash, no jaundice, no diaphoresis. Medical Decision & Procedures ER Provider Diagnostic Interpretation: CHEST ONE VIEW PORTABLE CLINICAL HISTORY: syncope COMPARISON STUDY: 08/03/2017 FINDINGS: The cardiac and mediastinal contours are normal. There is no evidence of focal pulmonary consolidation. There is no evidence of failure. No pleural effusions are visualized.[ There are minor bibasilar atelectatic changes. IMPRESSION: Minor bibasal atelectasis. No evidence of failure. No evidence of lobar consolidation. Electronically signed by: Moi Mckeon M.D. 09/14/2017 6:04 PM Laboratory Results 09/14/17 16:32 Red Blood Count 4.96, Mean Corpuscular Volume 91.7, Mean Corpuscular Hemoglobin 30.8, Mean Corpuscular Hemoglobin Concent 33.6, Mean Platelet Volume 10.4, Neutrophils (%) (Auto) 81.8, Lymphocytes (%) (Auto) 11.2, Monocytes (%) (Auto) 4.0, Eosinophils (%) (Auto) 2.3, Basophils (%) (Auto) 0.3, Neutrophils # (Auto) 16.29, Lymphocytes # (Auto) 2.23, Monocytes # (Auto) 0.79, Eosinophils # (Auto) 0.45, Basophils # (Auto) 0.06 09/14/17 16:32 Test 09/14/17 16:32 White Blood Count 19.89 K/uL (4.8-10.8) Red Blood Count 4.96 M/uL (4.7-6.1) Hemoglobin 15.3 g/dL (14.0-18.0) Hematocrit 45.5 % (42-52) Mean Corpuscular Volume 91.7 fL (80-100) Mean Corpuscular Hemoglobin 30.8 pg (25-34) Mean Corpuscular Hemoglobin Concent 33.6 g/dl (32-36) Platelet Count 166 K/uL (130-400) Mean Platelet Volume 10.4 fL (7.4-10.4) Neutrophils (%) (Auto) 81.8 % Lymphocytes (%) (Auto) 11.2 % Monocytes (%) (Auto) 4.0 % Eosinophils (%) (Auto) 2.3 % Basophils (%) (Auto) 0.3 % Neutrophils # (Auto) 16.29 K/uL (1.4-6.5) Lymphocytes # (Auto) 2.23 K/uL (1.2-3.4) Monocytes # (Auto) 0.79 K/uL (0.11-0.59) Eosinophils # (Auto) 0.45 K/uL (0-0.5) Basophils # (Auto) 0.06 K/uL (0-0.2) RDW Standard Deviation 44.3 fL (36.4-46.3) RDW Coefficient of Variation 13.3 % (11.5-14.5) Immature Granulocyte % (Auto) 0.4 % Immature Granulocyte # (Auto) 0.07 K/uL (0.00-0.02) Venous Blood pH 7.34 (7.36-7.41) Venous Blood Partial Pressure CO2 52 mmHg (38.0-50.0) Venous Blood Partial Pressure O2 39 mmHg Venous Blood HCO3 28 mmol/L Venous Blood Oxygen Saturation 69.6 % Venous Blood Base Excess 1.0 mEq/L Anion Gap 9.0 mmol/L (3-11) Est Creatinine Clear Calc Drug Dose 12.8 ml/min Estimated GFR () 9.0 Estimated GFR (Non- 7.7 BUN/Creatinine Ratio 4.8 (10-20) Calcium Level 9.1 mg/dl (8.5-10.1) Total Bilirubin 1.4 mg/dl (0.2-1) Aspartate Amino Transf (AST/SGOT) 29 U/L (15-37) Alanine Aminotransferase (ALT/SGPT) 30 U/L (12-78) Alkaline Phosphatase 101 U/L (45-117) Total Protein 8.5 gm/dl (6.4-8.2) Albumin 4.0 gm/dl (3.4-5.0) Globulin 4.5 gm/dl (2.5-4.0) Albumin/Globulin Ratio 0.9 (0.9-2) Chemistry Specimen Hemolysis Laboratory results reviewed by me. Medications Administered Medications (Trade) Dose Ordered Sig/Lynda Route Start Time Stop Time Status Last Admin Dose Admin Sodium Chloride 500 ml @ 999 mls/hr Q31M IV 09/14/17 16:30 10/14/17 16:29 09/14/17 16:30 999 MLS/HR Propranolol HCl (Inderal Tab) 80 mg NOW STAT PO 09/14/17 17:19 09/14/17 17:21 DC 09/14/17 18:12 80 MG ECG Per My Interpretation Indication: syncope Rate (beats per minute): 84 Rhythm: normal sinus Findings: other (No PVCs, NO St elevation, LVH noted) ED Course 1551: The patient was evaluated by the [employer] at this time. 1603: The patient was evaluated in room B7. A complete history and physical exam was performed. 1630: Ordered Sodium Chloride 500 mL @ 999 mL/hr IV. 1716: I discussed the case with the patient and his girlfriend. She states that he commonly has confusion after these episodes. He is also usually hypertensive , as he is now. He is due for his evening dosage of Propranolol, I will order for this. 1719: Ordered Propranolol HCl 80 mg PO. Medical Decision Differential Diagnosis includes; Hypoglycemia, seizure, dehydration, electrolyte imbalance, anemia, infection. There is a leukocytosis with a white count of 19,000, this could be consistent with infection or just the stress of his hypoglycemia earlier. No anemia. Renal panel testing shows a high creatinine consistent with his dialysis history. Sugar was about 188. No evidence for hepatitis. EKG shows a sinus rhythm with LVH. Chest film does not show pneumonia or CHF. The patient did receive IV saline, he was allowed to eat and drink and his sugar has remained adequate. He feels back to baseline. He is hypertensive but states he is always hypertensive after these episodes. I looked at old records and the hypertension post hypoglycemia as he describes has been documented before. The patient is due for his dose of nighttime propranolol, this was given orally. The patient feels well now, he felt well earlier before this episode. I believe he had a hypoglycemic event. The white count is from the hypoglycemia I suspect. The patient does not have any signs of infection. I do think he can be discharged with close outpatient follow-up. He will keep a close eye on his blood sugar. Impression Primary Impression: Hypoglycemia Additional Impressions: Syncope HTN (hypertension) Scribe Attestation The scribe's documentation has been prepared under my direction and personally reviewed by me in its entirety. I confirm that the note above accurately reflects all work, treatment, procedures, and medical decision making performed by me. Departure Information Dispostion Home / Self-Care Referrals Damian Ibarra M.D.([facility]) (PCP) Patient Instructions My [facility] Additional Instructions You were seen in the ED due to hypoglycemia that likely resulted in your weakness and unresponsive episode. Please eat at regular intervals to maintain your blood sugars. Please manage your insulin pump appropriately. Your blood pressure was elevated and was treated with propanolol. If it continues to be elevated; please follow up with your PCP Please follow up with your PCP within 3-5 days. Problem Qualifiers
[2017-09-14] MEDS ORDERED: SODIUM CHLORIDE 0.9% 500ML 500 ML IV SCH (16:30)
[2017-09-14 16:43] LABS: BASO % 0.3 %; BASO ABS # 0.06 K/uL (0-0.2); EOS % 2.3 %; EOS ABS # 0.45 K/uL (0-0.5); HEMATOCRIT 45.5 % (42-52); HEMOGLOBIN 15.3 g/dL (14.0-18.0); IG# 0.07 K/uL (0.00-0.02); LYMPH % 11.2 %; LYMPH ABS # 2.23 K/uL (1.2-3.4); MEAN CELL VOLUME 91.7 fL (80-100); MEAN CORPUSCULAR HEMOGLOBIN 30.8 pg (25-34); MEAN CORPUSCULAR HGB CONC 33.6 g/dl (32-36); MEAN PLATELET VOLUME 10.4 fL (7.4-10.4); MONO ABS # 0.79 K/uL (0.11-0.59); NEUT % 81.8 %; NEUT ABS # 16.29 K/uL (1.4-6.5); PLATELET COUNT 166 K/uL (130-400); RED CELL DISTRIBUTION WIDTH CV 13.3 % (11.5-14.5); RED CELL DISTRIBUTION WIDTH SD 44.3 fL (36.4-46.3); WHITE BLOOD COUNT 19.89 K/uL (4.8-10.8)
[2017-09-14 17:13] LABS: CALCIUM 9.1 mg/dl (8.5-10.1); POTASSIUM 4.5 mmol/L (3.5-5.1); TOTAL PROTEIN 8.5 gm/dl (6.4-8.2)
[2017-09-14 17:15] LABS: CREATININE 8.15 mg/dl (0.60-1.40)
[2017-09-14] MEDS ORDERED: PROPRANOLOL HCL 80 MG TAB PO STA (17:19)
[2017-09-14 18:00] VITALS: TEMP 36.5
--- NOTE | 2017-09-14 18:05 | DIAGNOSTIC IMAGING REPORT ---
CHEST ONE VIEW PORTABLE CLINICAL HISTORY: syncope COMPARISON STUDY: 08/03/2017 FINDINGS: The cardiac and mediastinal contours are normal. There is no evidence of focal pulmonary consolidation. There is no evidence of failure. No pleural effusions are visualized.[ There are minor bibasilar atelectatic changes. IMPRESSION: Minor bibasal atelectasis. No evidence of failure. No evidence of lobar consolidation. Electronically signed by: Moi Mckeon M.D. 09/14/2017 6:04 PM Dictated Date/Time: 09/14/2017 6:03 PM
[2017-09-14 18:10] VITALS: PULSE 87; O2SAT 96
[2017-09-14 18:20] VITALS: BP 158/107
== END 2017-09-14 18:45 | disposition home or self-care (01) ==
LOC: EDBD 15:10 → C.EDB 15:11
DX: E11.649 Type 2 diabetes mellitus with hypoglycemia without coma (principal); R56.9 Unspecified convulsions; I12.0 Hypertensive chronic kidney disease with stage 5 chronic kidney disease or end stage renal disease; N18.6 End stage renal disease; E11.22 Type 2 diabetes mellitus with diabetic chronic kidney disease; Z79.4 Long term (current) use of insulin; Z79.899 Other long term (current) drug therapy

== ENCOUNTER 2017-10-06 11:03 | Emergency (ER) | payer OTHER ==
[~2017-10-06] VITALS: Ht 175.3 cm; Wt 69.6 kg
[~2017-10-06 11:03] MED LIST changes: -LOPE-5 PO; -NRV/5 PO
[2017-10-06 11:08] VITALS: TEMP 36.4; O2SAT 98; Ht 175.3 cm; Wt 69.6 kg
[2017-10-06 11:40] LABS: BASO % 1.1 %; BASO ABS # 0.12 K/uL (0-0.2); EOS % 11.4 %; EOS ABS # 1.23 K/uL (0-0.5); HEMATOCRIT 43.3 % (42-52); HEMOGLOBIN 14.3 g/dL (14.0-18.0); IG# 0.04 K/uL (0.00-0.02); LYMPH % 32.3 %; LYMPH ABS # 3.49 K/uL (1.2-3.4); MEAN CELL VOLUME 92.9 fL (80-100); MEAN CORPUSCULAR HEMOGLOBIN 30.7 pg (25-34); MEAN PLATELET VOLUME 10.3 fL (7.4-10.4); MONO % 7.8 %; MONO ABS # 0.84 K/uL (0.11-0.59); PLATELET COUNT 252 K/uL (130-400); RED CELL DISTRIBUTION WIDTH CV 13.2 % (11.5-14.5); RED CELL DISTRIBUTION WIDTH SD 44.9 fL (36.4-46.3); WHITE BLOOD COUNT 10.82 K/uL (4.8-10.8)
[2017-10-06] MEDS ORDERED: DEXTROSE 50% 50 ML SYR ONE (11:52)
[2017-10-06] MEDS ORDERED: HYDR-4717 PO (11:53)
[2017-10-06] MEDS ORDERED: ROPI5TAB PO (11:53)
[2017-10-06] MEDS ORDERED: CINA0.42 PO (11:53)
[2017-10-06] MEDS ORDERED: IMD/2 PO (11:53)
[2017-10-06] MEDS ORDERED: PROM1TAB6 PO (11:53)
[2017-10-06] MEDS ORDERED: PROP80TA30 PO (11:53)
--- NOTE | 2017-10-06 11:54 | EMERGENCY ROOM VISIT NOTE ---
History Report prepared by Falguni: Sushma Bray Under the Supervision of: Dr. Sami Walsh M.D. First contact with patient: 11:22 Chief Complaint: SEIZURE Stated Complaint: SEIZURE Nursing Triage Summary: Patient arrives via als from [facility], patient was waiting to get dialysis and he was sitting in chair in lobby, when staff noticed seizure like activity. Staff checked his BSG and it was 43 initially, dialysis staff administered 1 amp of D50 at facility prior to ems arriving. Recheck BSG on way to ER was 87, then dropped down to 51, ems administered D-10. Patient has insulin pump currently paused. Patient has history of diabetes, and has history of seizures when his BSG drops but hasn't happened in long time. History of Present Illness The patient is a 32 year old male who presents to the Emergency Room with complaints of an episode of a seizure occurring just prior to arrival. Per nursing note, the patient was at [facility] waiting to get dialysis and he was sitting in chair in lobby, when the staff noticed seizure like activity. The staff checked his BSG and it was 43 initially. The dialysis staff administered 1 amp of D50 at facility prior to EMS arriving. After rechecking BSG on way to ER it was 87, then dropped down to 51, EMS administered D-10. The patient has history of diabetes with an insulin pump. He also has a history of seizures when his BSG drops but he reports this has not happened in long time. The patient reports he does not remember the seizure. He denies any cough, fever , chills, chest pain, or shortness of breath. Presently, the patient reports feeling fatigued. The patient has been on dialysis for 2 and a half years. The patient still makes urine. He denies any changes to his insulin pump. The patient reports eating eggs and toast for breakfast this morning. The patient is not on medication for seizures. The patient denies any alcohol or drug use. Source of History: patient Onset: just prior to arrival Position: other (generalized) Quality: other (seizure) Timing: other (episode) Associated Symptoms: + fatigue, No chest pain, No SOB Review of Systems See HPI for pertinent positives and negatives. A total of ten systems were reviewed and were otherwise negative. Past Medical & Surgical Medical Problems: (1) Anemia (2) Chronic kidney disease, stage IV (severe) (3) CKD (chronic kidney disease) stage V requiring chronic dialysis (4) Diabetic neuropathy (5) DM type 1 (diabetes mellitus, type 1) (6) Dyslipidemia (7) GERD (gastroesophageal reflux disease) (8) HTN (hypertension) (9) steal syndrome left arm (10) Wound, open, foot Surgical Problems: (1) S/p eye procedures (2) S/P tonsillectomy and adenoidectomy Family History Diabetes mellitus FH: heart disease Hypertension FATHER Social History Smoking Status: Current Some Day Smoker Alcohol Use: none Drug Use: none Marital Status: in relationship Housing Status: lives with significant other Occupation Status: disabled Current/Historical Medications Scheduled Aspirin (Aspirin Ec), 81 MG PO QAM Calcium Acetate (Phoslo 667 Mg), 667 MG PO BID Cholecalciferol (Vitamin D), 5,000 INTER.UNIT PO QAM Cinacalcet (Sensipar), 30 MG PO QDD Furosemide (Furosemide), 80 MG PO QAM Hydralazine Hcl (Apresoline), 50 MG PO TID Insulin Aspart (novoLOG INSULIN PUMP ), 1 EA N/A UD Loperamide Hcl (Imodium), 2 MG PO TID Multivitamin (Multivitamin), 1 TAB PO QAM Pregabalin (Lyrica), 75 MG PO BID Promethazine (Phenergan), 50 MG PO TID Propranolol HCl (Propranolol HCl), 80 MG PO BID Ropinirole (Requip), 5 MG PO DAILY Venlafaxine Hcl (Venlafaxine Extended Rel), 37.5 MG PO QPM Scheduled PRN Glucagon (Glucagon Emergency Kit), 1 DOSE UD PRN for HYPOGLYCEMIA PROTOCOL Allergies Coded Allergies: Penicillins (Verified Allergy, Intermediate, RASH A CHILD; HAS HAD AMOXICILLIN W/O PROBLEM, 10/06/17) BLAIR Inhibitors (Verified Adverse Reaction, Intermediate, hyperkalemia, ) Angiotensin Receptor Blockers (Verified Adverse Reaction, Intermediate, hyperkalemia, 10/06/17) Physical Exam Vital Signs Date Time Temp Pulse Resp B/P (MAP) Pulse Ox O2 Delivery O2 Flow Rate FiO2 10/06/17 20:29 98 16 171/94 99 10/06/17 19:44 108 18 172/102 97 Room Air 10/06/17 18:53 111 14 188/113 96 Room Air 10/06/17 17:14 110 16 151/75 96 Room Air 10/06/17 16:20 95 10/06/17 16:06 95 18 140/79 98 Room Air 10/06/17 15:05 96 14 146/87 98 Room Air 10/06/17 14:33 99 16 166/99 96 Room Air 10/06/17 13:48 97 14 174/112 96 Room Air 10/06/17 12:16 87 14 175/109 96 Room Air 10/06/17 12:13 88 18 176/110 96 Room Air 10/06/17 12:05 87 10/06/17 11:08 36.4 97 18 162/122 98 Room Air 10/06/17 11:08 98 Room Air Physical Exam GENERAL: Awake, alert, fatigued and drowsy-appearing, in no distress HENT: Normocephalic, atraumatic. Oropharynx unremarkable. Dry MM. No evidence of tongue biting. EYES: Normal conjunctiva. Sclera non-icteric. NECK: Supple. No nuchal rigidity. FROM. No JVD. RESPIRATORY: Clear to auscultation. CARDIAC: Regular rate, normal rhythm. Extremities warm and well perfused. Pulses equal. ABDOMEN: Soft, non-distended. No tenderness to palpation. No rebound or guarding. No masses. RECTAL: Deferred. MUSCULOSKELETAL: Chest examination reveals no tenderness. The back is symmetrical on inspection without obvious abnormality. There is no CVA tenderness to palpation. No joint edema. LOWER EXTREMITIES: Calves are equal size bilaterally and non-tender. No edema. No discoloration. NEURO: Normal sensorium. No sensory or motor deficits noted. normal cerebellar function with [id number]. SKIN: No rash or jaundice noted. Medical Decision & Procedures ER Provider Diagnostic Interpretation: Radiology results as stated below per my review and radiologist interpretation: CHEST ONE VIEW PORTABLE FINDINGS: The patient is slightly rotated to the right. Cardiac silhouette is within normal limits. No pneumothorax or pleural effusion. Linear subsegmental opacity of the medial right lung base is again noted. Lungs are otherwise clear. No overt pulmonary edema. The bones of the chest appear grossly intact. Mild convex right curvature of the midthoracic spine is again noted. IMPRESSION: Subsegmental opacity of the medial right lung base is again seen suggesting atelectasis/scarring. Lungs otherwise appear clear. The above report was generated using voice recognition software. It may contain grammatical, syntax or spelling errors. Electronically signed by: Jorge Rodriguez M.D. HEAD CT NONCONTRAST Findings: The paranasal sinuses and mastoid air cells are clear. The calvarium and skull base are intact. The ventricles and sulci are within normal limits. There is no mass, hematoma, midline shift, or acute infarct. Impression: No acute intracranial abnormality. Electronically signed by: Jason Bustillo M.D Laboratory Results 10/06/17 11:26 Red Blood Count 4.66, Mean Corpuscular Volume 92.9, Mean Corpuscular Hemoglobin 30.7, Mean Corpuscular Hemoglobin Concent 33.0, Mean Platelet Volume 10.3, Neutrophils (%) (Auto) 47.0, Lymphocytes (%) (Auto) 32.3, Monocytes (%) (Auto) 7.8, Eosinophils (%) (Auto) 11.4, Basophils (%) (Auto) 1.1, Neutrophils # (Auto ) 5.10, Lymphocytes # (Auto) 3.49, Monocytes # (Auto) 0.84, Eosinophils # (Auto ) 1.23, Basophils # (Auto) 0.12 10/06/17 11:26 Test 10/06/17 11:26 10/06/17 14:10 10/06/17 19:51 White Blood Count 10.82 K/uL (4.8-10.8) Red Blood Count 4.66 M/uL (4.7-6.1) Hemoglobin 14.3 g/dL (14.0-18.0) Hematocrit 43.3 % (42-52) Mean Corpuscular Volume 92.9 fL (80-100) Mean Corpuscular Hemoglobin 30.7 pg (25-34) Mean Corpuscular Hemoglobin Concent 33.0 g/dl (32-36) Platelet Count 252 K/uL (130-400) Mean Platelet Volume 10.3 fL (7.4-10.4) Neutrophils (%) (Auto) 47.0 % Lymphocytes (%) (Auto) 32.3 % Monocytes (%) (Auto) 7.8 % Eosinophils (%) (Auto) 11.4 % Basophils (%) (Auto) 1.1 % Neutrophils # (Auto) 5.10 K/uL (1.4-6.5) Lymphocytes # (Auto) 3.49 K/uL (1.2-3.4) Monocytes # (Auto) 0.84 K/uL (0.11-0.59) Eosinophils # (Auto) 1.23 K/uL (0-0.5) Basophils # (Auto) 0.12 K/uL (0-0.2) RDW Standard Deviation 44.9 fL (36.4-46.3) RDW Coefficient of Variation 13.2 % (11.5-14.5) Immature Granulocyte % (Auto) 0.4 % Immature Granulocyte # (Auto) 0.04 K/uL (0.00-0.02) Anion Gap 15.0 mmol/L (3-11) Est Creatinine Clear Calc Drug Dose 11.6 ml/min Estimated GFR () 8.1 Estimated GFR (Non- 7.0 BUN/Creatinine Ratio 6.2 (10-20) Calcium Level 9.9 mg/dl (8.5-10.1) Phosphorus Level 5.2 mg/dl (2.5-4.9) Magnesium Level 2.9 mg/dl (1.8-2.4) Total Bilirubin 1.3 mg/dl (0.2-1) Direct Bilirubin 0.2 mg/dl (0-0.2) Aspartate Amino Transf (AST/SGOT) 25 U/L (15-37) Alanine Aminotransferase (ALT/SGPT) 27 U/L (12-78) Alkaline Phosphatase 104 U/L (45-117) Troponin I < 0.015 ng/ml (0-0.045) Total Protein 9.0 gm/dl (6.4-8.2) Albumin 4.2 gm/dl (3.4-5.0) Lipase 113 U/L (73-393) Urine Color YELLOW Urine Appearance ERROR (CLEAR) Urine pH 6.5 (4.5-7.5) Urine Specific [place] 1.016 (1.000-1.030) Urine Protein 3+ (NEG) Urine Glucose (UA) 2+ (NEG) Urine Ketones NEG (NEG) Urine Occult Blood 2+ (NEG) Urine Nitrite NEG (NEG) Urine Bilirubin NEG (NEG) Urine Urobilinogen NEG (NEG) Urine Leukocyte Esterase NEG (NEG) Urine WBC (Auto) 1-5 /hpf (0-5) Urine RBC (Auto) 0-4 /hpf (0-4) Urine Hyaline Casts (Auto) 1-5 /lpf (0-5) Urine Epithelial Cells (Auto) 10-20 /lpf (0-5) Urine Bacteria (Auto) NEG (NEG) Urine Sperm (Auto) PRESENT (NOT PRESENT) Bedside Glucose 391 mg/dl (70-99) Laboratory results reviewed by me Medications Administered Medications (Trade) Dose Ordered Sig/Lynda Route Start Time Stop Time Status Last Admin Dose Admin Dextrose (Dextrose 50% 50ML Syringe) 50 ml NOW ONCE IV 10/06/17 12:00 10/06/17 12:01 DC 10/06/17 12:06 50 ML Dextrose (Dextrose 50% 50ML Syringe) 50 ml NOW STAT IV 10/06/17 11:57 10/06/17 11:58 DC 10/06/17 12:05 50 ML Sodium Chloride 155 meq/Dextrose 1,062 ml @ 0 mls/hr Q0M STAT IV 10/06/17 11:59 10/06/17 12:04 DC 10/06/17 12:11 75 MLS/HR Insulin Aspart (novoLOG ASPART) 8 units NOW STAT SC 10/06/17 17:38 10/06/17 17:40 DC 10/06/17 17:56 8 UNITS Sodium Chloride 250 ml @ 999 mls/hr Q16M STAT IV 10/06/17 17:38 10/06/17 17:53 DC 10/06/17 17:41 999 MLS/HR Ondansetron HCl (Zofran Inj) 4 mg NOW STAT IV 10/06/17 17:38 10/06/17 17:40 DC 10/06/17 17:49 4 MG Acetaminophen (Tylenol Tab) 650 mg NOW STAT PO 10/06/17 18:39 10/06/17 18:41 DC 10/06/17 18:49 650 MG Insulin Aspart (novoLOG ASPART) 12 units NOW STAT SC 10/06/17 18:42 10/06/17 18:44 DC 10/06/17 18:50 12 UNITS Hydralazine HCl (Apresoline Tab) 50 mg NOW STAT PO 10/06/17 19:19 10/06/17 19:21 DC 10/06/17 19:43 50 MG Propranolol HCl (Inderal Tab) 80 mg NOW ONCE PO 10/06/17 19:30 10/06/17 19:31 DC 10/06/17 19:43 80 MG Insulin Aspart (novoLOG ASPART) 8 units NOW STAT SC 10/06/17 20:00 10/06/17 20:02 DC 10/06/17 20:20 8 UNITS ECG Per My Interpretation Indication: other (seizure) Rate (beats per minute): 99 Rhythm: normal sinus Findings: no acute ischemic change, other (normal axis) ED Course 1124: The patient was evaluated in room C4. A complete history and physical exam was performed. 1658: [employer] will talk the nurse through how to interrogate the insulin pump. 1708: The patient's blood sugar glucose level is 367. Medical Decision I reviewed the patient's past medical history, medications, and the nursing notes as described above. Differential diagnoses: Hypoglycemia, insulin pump malfunction, Dehydration, electrolyte abnormality, ICH, seizure, syncope, arrhythmia. The patient is a 32-year-old gentleman with a past medical history of end-stage renal disease on hemodialysis Monday as well as IDDM1 with insulin pump with h/o hypoglycemic episodes presents to emergency department with episode of syncope (?seizure-like activity) in the setting of getting dialysis, found to be hypoglycemic per hpi. On arrival, patient is drowsy appearing but alert and neuro intact. The patient did transiently improve with dextrose administration in the field but then had a subsequent hypoglycemia upon arrival from 80s to 50s to 17. Patient was subsequently given D50 2 amps and placed on slow D10 drip. Once patient improved the patient was able to take oral intake, D10 was discontinued with subsequent stabilization of his glucose. Labs otherwise unremarkable and c/w the patient's missed dialysis today. I discussed the case with the [employer] field representative/health education to assess patient 's insulin pump for dysfunction who then subsequently guided nursing through evaluation of the pump and it was determined that the pump was malfunctioning. Thus, I discussed options with the patient for admission versus discharge and he reports that he feels comfortable going home. He reports that he had a similar episode in June where his pump malfunctioned and he managed his glucose with sliding scale until his new pump arrived. The [employer] tach reported that they will send him a new pump that will arrive tomorrow via [employer]. Patient was given subcu NovoLog to correct his rising blood sugar after his insulin pump was disconnected due to its malfunction. FSBG of 370 and was given 8 units, 1 hour recheck was 425 and was given 12 units, with subsequent improvement to 390. Discussed with patient again the recommendation for admission however he prefers to go home. He is very well-appearing at this time. He again explains that he has had to manage this similarly last time and will check his fingersticks every hour while awake and every couple hours at night and will administer short acting insulin in this manner until his pump arrives. His partner is at the bedside who also reports being familiar with this process and says that she will watch him closely and help him check his fingersticks. Thus given the patient's familiarity with this transition, will discharge the patient with strict return instructions should he become worse. Findings and plan for follow-up reviewed with patient. The patient is well- appearing and has a downtrending glucose at this time. Will administer an additional 8 units of NovoLog and patient will recheck his blood sugar when he gets home and readminister novolog as needed. Findings and plan for follow-up reviewed with patient. Patient agreeable and d/c'd per discharge instructions. Medication Reconcilliation Current Medication List: was personally reviewed by me Impression Primary Impression: Hypoglycemia Additional Impression: Complication of insulin pump Critical Care I have personally spent greater than 35 minutes of critical care time in the direct management of this patient. This includes bedside care, interpretation of diagnostic studies, and testing, discussion with consultants, patient, and family members, and other required patient management activities. This 35 minutes is in excess of all separately billable procedures. Scribe Attestation The scribe's documentation has been prepared under my direction and personally reviewed by me in its entirety. I confirm that the note above accurately reflects all work, treatment, procedures, and medical decision making performed by me. Departure Information Dispostion Home / Self-Care Referrals Damian Ibarra M.D.([facility]) (PCP) Patient Instructions Diabetes Carbs, Diabetes Insulin Pump Ch, Hypoglycemia, My [facility] Additional Instructions Please follow up with your primary care physician on Monday for re-evaluation and to discuss your ED visit today related to malfunction of your insulin pump. Use your sliding scale insulin by checking your glucose every hour while awake until you receive your new pump tomorrow via [employer]. Set an alarm when sleeping every 2 hours to spot check your glucose to ensure you do not develop any severely low or severely high blood sugars. If you experience any shortness of breath that could be related to your incomplete dialysis today return to the emergency department. Return to the emergency department for worsening symptoms as described in the accompanying instructions. Problem Qualifiers
[2017-10-06] MEDS ORDERED: DEXTROSE 50% 50 ML SYR IV STA (11:57)
[2017-10-06] MEDS ORDERED: SODI CHLOR 2.5MEQ/ML 14.6% INJ 155 MEQ in DEXTROSE 10% 1,000 ML IV STA (11:59)
[2017-10-06] MEDS ORDERED: DEXTROSE 50% 50 ML SYR IV ONE (12:00)
--- NOTE | 2017-10-06 12:00 | DIAGNOSTIC IMAGING REPORT ---
CHEST ONE VIEW PORTABLE HISTORY: 32 years-old Male CHEST PAIN acute atypical chest pain with seizure COMPARISON: Chest radiograph 09/14/2017, 06/19/2016 TECHNIQUE: Portable AP view of the chest FINDINGS: The patient is slightly rotated to the right. Cardiac silhouette is within normal limits. No pneumothorax or pleural effusion. Linear subsegmental opacity of the medial right lung base is again noted. Lungs are otherwise clear. No overt pulmonary edema. The bones of the chest appear grossly intact. Mild convex right curvature of the midthoracic spine is again noted. IMPRESSION: Subsegmental opacity of the medial right lung base is again seen suggesting atelectasis/scarring. Lungs otherwise appear clear. The above report was generated using voice recognition software. It may contain grammatical, syntax or spelling errors. Electronically signed by: Jorge Rodriguez M.D. 10/06/2017 11:59 AM Dictated Date/Time: 10/06/2017 11:57 AM
[2017-10-06 12:03] LABS: ALBUMIN 4.2 gm/dl (3.4-5.0); ALKALINE PHOSPHATASE 104 U/L (45-117); ALT/SGPT 27 U/L (12-78); AST/SGOT 25 U/L (15-37); BLOOD UREA NITROGEN 55 mg/dl (7-18); CALCIUM 9.9 mg/dl (8.5-10.1); CARBON DIOXIDE 23 mmol/L (21-32); CREATININE 8.85 mg/dl (0.60-1.40); GLUCOSE 54 mg/dl (70-99); LIPASE 113 U/L (73-393); PHOSPHORUS 5.2 mg/dl (2.5-4.9); POTASSIUM 4.2 mmol/L (3.5-5.1); SODIUM 137 mmol/L (136-145)
--- NOTE | 2017-10-06 13:48 | DIAGNOSTIC IMAGING REPORT ---
HEAD CT NONCONTRAST CT DOSE: 537.48 mGy.cm HISTORY: Seizure like activity. syncope TECHNIQUE: Multiaxial CT images of the head were performed without the use of intravenous contrast. Automated exposure control was utilized for this study. A dose lowering technique was utilized adhering to the principles of ALARA. Comparison: Head CT 06/13/2016. Findings: The paranasal sinuses and mastoid air cells are clear. The calvarium and skull base are intact. The ventricles and sulci are within normal limits. There is no mass, hematoma, midline shift, or acute infarct. Impression: No acute intracranial abnormality. Electronically signed by: Jason Bustillo M.D. 10/06/2017 1:47 PM Dictated Date/Time: 10/06/2017 1:44 PM
[2017-10-06] MEDS ORDERED: INSULIN ASPART 100 UNITS/ML 3 ML PEN SC STA ×3 (17:38→20:00)
[2017-10-06] MEDS ORDERED: ONDANSETRON INJ 2 MG/ML 2 ML VIAL IV STA (17:38)
[2017-10-06] MEDS ORDERED: SODIUM CHLORIDE 0.9% 250ML 250 ML IV STA (17:38)
[2017-10-06] MEDS ORDERED: NovoLOG PER UNIT CHARGE ONE (17:43)
[2017-10-06] MEDS ORDERED: ACETAMINOPHEN 325 MG TAB PO STA (18:39)
[2017-10-06] MEDS ORDERED: PROPRANOLOL HCL 20 MG TAB PO ONE (19:30)
[2017-10-06] MEDS ORDERED: PROPRANOLOL HCL 10 MG TAB PO ONE (19:30)
[2017-10-06 20:29] VITALS: BP 171/94; PULSE 98; O2SAT 99
== END 2017-10-06 20:30 | disposition home or self-care (01) ==
LOC: EDBD 11:03 → C.EDC 11:05
DX: E10.649 Type 1 diabetes mellitus with hypoglycemia without coma (principal); T85.694A Other mechanical complication of insulin pump, initial encounter; Y82.8 Other medical devices associated with adverse incidents; E10.22 Type 1 diabetes mellitus with diabetic chronic kidney disease; N18.4 Chronic kidney disease, stage 4 (severe); I12.9 Hypertensive chronic kidney disease with stage 1 through stage 4 chronic kidney disease, or unspecified chronic kidney disease; F17.200 Nicotine dependence, unspecified, uncomplicated; Z79.4 Long term (current) use of insulin; Z79.82 Long term (current) use of aspirin; Z99.2 Dependence on renal dialysis; Z88.0 Allergy status to penicillin; Z88.8 Allergy status to other drugs, medicaments and biological substances; Z83.3 Family history of diabetes mellitus; Z82.49 Family history of ischemic heart disease and other diseases of the circulatory system

== ENCOUNTER 2017-10-27 16:57 | Emergency (ER) | payer OTHER ==
[~2017-10-27] VITALS: Ht 175.3 cm; Wt 74.6 kg
[~2017-10-27 16:57] MED LIST changes: +CINA0.42 PO; +HYDR-4717 PO; +IMD/2 PO; +PROM1TAB6 PO; -PROP40TA5 PO; +PROP80TA30 PO; -ROPI0.5T15 PO; +ROPI5TAB PO
[2017-10-27 17:00] VITALS: TEMP 36.7; Ht 175.3 cm; Wt 74.6 kg
--- NOTE | 2017-10-27 17:14 | EMERGENCY ROOM VISIT NOTE ---
History Report prepared by Falguni: Shilo Dior Under the Supervision of: Dr. Alma Lilly D.O. First contact with patient: 16:59 Chief Complaint: HYPOGLYCEMIA Stated Complaint: HYPOGLYCEMIA History of Present Illness The patient is a 32 year old male who presents to the Emergency Room with complaints of an episode of hypoglycemia occurring today. Per EMS, the patient' s girlfriend noticed that his low sugar alarm was going off while he was napping today. He notes that the patient's sugar was 20. He reports that the patient's girlfriend gave him oral glucose and 2 glucagon pens. Upon EMS arrival , the patient was unresponsive and had a sugar of 76. He notes that the patient' s glucose level reached 224. He reports that the patient's girlfriend said that the patient's sugars have been running high for the last few days. The patient states that he had a similar episode a few weeks ago. He notes that he has had an insulin pump for 3-4 years, and reports that his last episode was due to a pump malfunction. The patient states that his pump has not malfunctioned since. He notes that he received dialysis today and had a sugar level of 169 following his treatment. He reports that he has had low levels since he has been on dialysis. The patient also complains of mild dizziness and confusion but denies any nausea, abdominal pain, chest pain, change to his bowel movements, and headache. He states that he felt sick last night but did not have any problems. He notes that he has been eating/drinking regularly and has not started any new medication. On review of patient's pump settings, it appears that he had bolused himself twice in a fairly close amount of time around noon to kane increased blood sugar readings. Source of History: patient, EMS Onset: today Position: other (generalized) Symptom Intensity: blood sugar level of 20 Quality: other (hypoglycemia) Timing: other (an episode) Associated Symptoms: No headache, No chest pain, No nausea, No abdominal pain Note: Upon EMS arrival, the patient was found to be unresponsive and have a blood sugar level of 76. The patient also complains of mild dizziness and confusion. He denies any change to his bowel movements. Review of Systems See HPI for pertinent positives & negatives. A total of 10 systems reviewed and were otherwise negative. Past Medical & Surgical Medical Problems: (1) Anemia (2) Chronic kidney disease, stage IV (severe) (3) CKD (chronic kidney disease) stage V requiring chronic dialysis (4) Diabetic neuropathy (5) DM type 1 (diabetes mellitus, type 1) (6) Dyslipidemia (7) GERD (gastroesophageal reflux disease) (8) HTN (hypertension) (9) steal syndrome left arm (10) Wound, open, foot Surgical Problems: (1) S/p eye procedures (2) S/P tonsillectomy and adenoidectomy Family History Diabetes mellitus FH: heart disease Hypertension FATHER Social History Smoking Status: Current Some Day Smoker Alcohol Use: none Drug Use: none Marital Status: in relationship Housing Status: lives with significant other Occupation Status: employed Current/Historical Medications Scheduled Aspirin (Aspirin Ec), 81 MG PO QAM Calcium Acetate (Phoslo 667 Mg), 667 MG PO BID Cholecalciferol (Vitamin D), 5,000 INTER.UNIT PO QAM Cinacalcet (Sensipar), 30 MG PO QDD Furosemide (Furosemide), 80 MG PO QAM Hydralazine Hcl (Apresoline), 50 MG PO TID Insulin Aspart (novoLOG INSULIN PUMP ), 1 EA N/A UD Loperamide Hcl (Imodium), 2 MG PO TID Multivitamin (Multivitamin), 1 TAB PO QAM Pregabalin (Lyrica), 75 MG PO BID Promethazine (Phenergan), 50 MG PO TID Propranolol HCl (Propranolol HCl), 80 MG PO BID Ropinirole (Requip), 5 MG PO DAILY Venlafaxine Hcl (Venlafaxine Extended Rel), 37.5 MG PO QPM Scheduled PRN Glucagon (Glucagon Emergency Kit), 1 DOSE UD PRN for HYPOGLYCEMIA PROTOCOL Allergies Coded Allergies: Penicillins (Verified Allergy, Intermediate, RASH A CHILD; HAS HAD AMOXICILLIN W/O PROBLEM, 10/06/17) BLAIR Inhibitors (Verified Adverse Reaction, Intermediate, hyperkalemia, ) Angiotensin Receptor Blockers (Verified Adverse Reaction, Intermediate, hyperkalemia, 10/06/17) Physical Exam Vital Signs Date Time Temp Pulse Resp B/P (MAP) Pulse Ox O2 Delivery O2 Flow Rate FiO2 10/27/17 21:04 98 16 135/104 100 10/27/17 19:44 92 16 121/79 98 Room Air 10/27/17 18:23 78 18 125/92 98 Room Air 10/27/17 17:00 36.7 80 16 115/78 98 Room Air Physical Exam GENERAL: alert, well appearing, well nourished, no distress, non-toxic EYE EXAM: normal conjunctiva, PERRL and EOM's grossly intact OROPHARYNX: no exudate, no erythema, lips, buccal mucosa, and tongue normal and mucous membranes are moist NECK: supple, no nuchal rigidity, no adenopathy, non-tender LUNGS: Clear to auscultation. Normal chest wall mechanics HEART: no murmurs, S1 normal and S2 normal ABDOMEN: abdomen soft, non-tender, normo-active bowel sounds, no masses, no rebound or guarding. BACK: Back is symmetrical on inspection and there is no deformity, no midline tenderness, no CVA tenderness. SKIN: no rashes and no bruising UPPER EXTREMITIES: RUE fistula. LOWER EXTREMITIES: No pitting edema. NEURO EXAM: Normal sensorium, cranial nerves II-XII grossly intact, normal speech, no gross weakness of arms, no gross weakness of legs. Medical Decision & Procedures ER Provider Diagnostic Interpretation: Radiology results have been interpreted by the radiologist and reviewed by me. ABDOMEN 2VIEW W/PA CHEST RTN FINDINGS: Cardiomediastinal silhouette normal. Lungs and pleural spaces clear. Nonobstructive bowel gas pattern. No gross pneumoperitoneum. Mild stool burden throughout the colon. A director of medical services projects over the left lower quadrant. Allowing for bowel gas and stool, no calcifications to suggest nephrolithiasis. Slight scoliotic curvature of the thoracic spine, unchanged. IMPRESSION: 1. No acute cardiopulmonary disease. 2. Mild stool burden. No bowel obstruction. 3. retail banker projects over the right lower quadrant. Correlate clinically. Electronically signed by: Vadim Harrell M.D. 10/27/2017 7:43 PM Laboratory Results 10/27/17 17:51 Red Blood Count 4.24, Mean Corpuscular Volume 90.8, Mean Corpuscular Hemoglobin 30.7, Mean Corpuscular Hemoglobin Concent 33.8, Mean Platelet Volume 10.3, Neutrophils (%) (Auto) 79.2, Lymphocytes (%) (Auto) 11.1, Monocytes (%) (Auto) 6.3, Eosinophils (%) (Auto) 2.6, Basophils (%) (Auto) 0.4, Neutrophils # (Auto) 11.18, Lymphocytes # (Auto) 1.57, Monocytes # (Auto) 0.89, Eosinophils # (Auto) 0.37, Basophils # (Auto) 0.05 10/27/17 17:51 Test 10/27/17 17:51 10/27/17 20:59 White Blood Count 14.11 K/uL (4.8-10.8) Red Blood Count 4.24 M/uL (4.7-6.1) Hemoglobin 13.0 g/dL (14.0-18.0) Hematocrit 38.5 % (42-52) Mean Corpuscular Volume 90.8 fL (80-100) Mean Corpuscular Hemoglobin 30.7 pg (25-34) Mean Corpuscular Hemoglobin Concent 33.8 g/dl (32-36) Platelet Count 156 K/uL (130-400) Mean Platelet Volume 10.3 fL (7.4-10.4) Neutrophils (%) (Auto) 79.2 % Lymphocytes (%) (Auto) 11.1 % Monocytes (%) (Auto) 6.3 % Eosinophils (%) (Auto) 2.6 % Basophils (%) (Auto) 0.4 % Neutrophils # (Auto) 11.18 K/uL (1.4-6.5) Lymphocytes # (Auto) 1.57 K/uL (1.2-3.4) Monocytes # (Auto) 0.89 K/uL (0.11-0.59) Eosinophils # (Auto) 0.37 K/uL (0-0.5) Basophils # (Auto) 0.05 K/uL (0-0.2) RDW Standard Deviation 43.6 fL (36.4-46.3) RDW Coefficient of Variation 13.3 % (11.5-14.5) Immature Granulocyte % (Auto) 0.4 % Immature Granulocyte # (Auto) 0.05 K/uL (0.00-0.02) Anion Gap 5.0 mmol/L (3-11) Est Creatinine Clear Calc Drug Dose 21.6 ml/min Estimated GFR () 16.9 Estimated GFR (Non- 14.6 BUN/Creatinine Ratio 3.2 (10-20) Calcium Level 8.7 mg/dl (8.5-10.1) Phosphorus Level 3.3 mg/dl (2.5-4.9) Magnesium Level 2.1 mg/dl (1.8-2.4) Total Bilirubin 1.1 mg/dl (0.2-1) Aspartate Amino Transf (AST/SGOT) 32 U/L (15-37) Alanine Aminotransferase (ALT/SGPT) 26 U/L (12-78) Alkaline Phosphatase 99 U/L (45-117) Total Protein 7.2 gm/dl (6.4-8.2) Albumin 3.5 gm/dl (3.4-5.0) Globulin 3.7 gm/dl (2.5-4.0) Albumin/Globulin Ratio 0.9 (0.9-2) Bedside Glucose 296 mg/dl (70-99) Laboratory results per my review. ECG Per My Interpretation Rate (beats per minute): 78 Rhythm: sinus rhythm Findings: T-wave inversion (in AVL), no acute ischemic change, other (Normal axis, normal intervals) ED Course 1658: The patient was evaluated in room B6. A complete history and physical exam was performed. 1854: I reevaluated and updated the patient. 2052: I rechecked the patient. He is awake. 2121: Upon reevaluation, the patient is feeling better. I discussed the findings and the treatment plan with the patient. He verbalizes agreement and understanding. The patient was discharged home. Medical Decision Differential diagnosis: Etiologies such as metabolic, infection, hypo/hyperglycemia, electrolyte abnormalities, cardiac sources, intracerebral event, toxicologic, neurologic, as well as others were entertained. Patient well-appearing here, lab abnormalities expected given patient's chronic kidney disease and dialysis. Patient with no recurrent episodes of hypoglycemia here. Galien improved, had no residual symptoms. Discussed close monitoring of his pump, follow-up with plasma table operator regarding some discrepancy noted between the sensor readings compared to our glucometer here. Discussed not bolusing himself back to back in a short amount of time as this likely contributed to a precipitous drop in his blood sugar which led to his symptoms and unresponsive episode. Discussed continue dialysis, follow-up with family doctor in the interim regarding his blood sugar, making continued efforts to see an quality associate, symptoms to watch and return for, he verbalized understanding was agreeable with plan. Patient's vital signs stable throughout , I do not suspect occult infectious etiology. No evidence of dysrhythmia, I do not suspect any cardiac etiology contributing to unresponsive episode Blood Pressure Screening Patient's blood pressure: Elevated blood pressure Blood pressure disposition: Referred to PCP Impression Primary Impression: Hypoglycemia Additional Impressions: Chronic kidney disease, stage IV (severe) HTN (hypertension) Scribe Attestation The scribe's documentation has been prepared under my direction and personally reviewed by me in its entirety. I confirm that the note above accurately reflects all work, treatment, procedures, and medical decision making performed by me. Departure Information Dispostion Home / Self-Care Referrals No Doctor, Assigned (PCP) Forms HOME CARE DOCUMENTATION FORM, IMPORTANT VISIT INFORMATION, WORK / SCHOOL INSTRUCTIONS Patient Instructions My [facility] Additional Instructions Please continue to check your sugars frequently, and if your meter gives you a higher low reading, please recheck this against her home glucometer. Please consider changing your sensor site. Please also call the plasma table operator's number for the pump and discussed with them the recent issues you have been having given that this is a new device. Please call follow-up closely with your family doctor given the high low readings you have had also. Please do not give yourself to boluses close together like you did today as this is likely the reason why her blood sugar dropped so quickly. If you have continued high or low readings, become more symptomatic such as increased dizziness, weakness, develop pain, vomiting, fevers, you have any other new concerns, please return the emergency room. Please continue your other regular medications as prescribed. Problem Qualifiers Additional Impressions: HTN (hypertension) Hypertension type: secondary to other renal disorders Qualified Codes: I15.1 - Hypertension secondary to other renal disorders; N28.89 - Other specified disorders of kidney and ureter
[2017-10-27 18:00] LABS: BASO % 0.4 %; BASO ABS # 0.05 K/uL (0-0.2); EOS % 2.6 %; EOS ABS # 0.37 K/uL (0-0.5); HEMATOCRIT 38.5 % (42-52); IG# 0.05 K/uL (0.00-0.02); LYMPH % 11.1 %; LYMPH ABS # 1.57 K/uL (1.2-3.4); MEAN CELL VOLUME 90.8 fL (80-100); MEAN CORPUSCULAR HEMOGLOBIN 30.7 pg (25-34); MEAN CORPUSCULAR HGB CONC 33.8 g/dl (32-36); MEAN PLATELET VOLUME 10.3 fL (7.4-10.4); MONO % 6.3 %; MONO ABS # 0.89 K/uL (0.11-0.59); NEUT % 79.2 %; NEUT ABS # 11.18 K/uL (1.4-6.5); PLATELET COUNT 156 K/uL (130-400); RED CELL DISTRIBUTION WIDTH CV 13.3 % (11.5-14.5); RED CELL DISTRIBUTION WIDTH SD 43.6 fL (36.4-46.3); WHITE BLOOD COUNT 14.11 K/uL (4.8-10.8)
[2017-10-27 18:49] LABS: ALBUMIN 3.5 gm/dl (3.4-5.0); CALCIUM 8.7 mg/dl (8.5-10.1); CREATININE 4.82 mg/dl (0.60-1.40); PHOSPHORUS 3.3 mg/dl (2.5-4.9); POTASSIUM 3.3 mmol/L (3.5-5.1); TOTAL PROTEIN 7.2 gm/dl (6.4-8.2)
--- NOTE | 2017-10-27 19:44 | DIAGNOSTIC IMAGING REPORT ---
ABDOMEN 2VIEW W/PA CHEST RTN CLINICAL HISTORY: 32 years-old Male presenting with hypoglycemia. TECHNIQUE: PA view of the chest and supine and upright views of the abdomen were obtained. COMPARISON: Chest x-ray from 10/06/2017. FINDINGS: Cardiomediastinal silhouette normal. Lungs and pleural spaces clear. Nonobstructive bowel gas pattern. No gross pneumoperitoneum. Mild stool burden throughout the colon. A medical affairs manager projects over the left lower quadrant. Allowing for bowel gas and stool, no calcifications to suggest nephrolithiasis. Slight scoliotic curvature of the thoracic spine, unchanged. IMPRESSION: 1. No acute cardiopulmonary disease. 2. Mild stool burden. No bowel obstruction. 3. certified physical therapist assistant projects over the right lower quadrant. Correlate clinically. Electronically signed by: Vadim Harrell M.D. 10/27/2017 7:43 PM Dictated Date/Time: 10/27/2017 7:42 PM
[2017-10-27 21:04] VITALS: BP 135/104; PULSE 98; O2SAT 100
== END 2017-10-27 21:25 | disposition home or self-care (01) ==
LOC: C.EDB 16:57 → EDBD 16:57 → C.EDB 21:25
DX: E10.649 Type 1 diabetes mellitus with hypoglycemia without coma (principal); Z96.41 Presence of insulin pump (external) (internal); Z99.2 Dependence on renal dialysis; D64.9 Anemia, unspecified; N18.5 Chronic kidney disease, stage 5; I12.0 Hypertensive chronic kidney disease with stage 5 chronic kidney disease or end stage renal disease; E10.40 Type 1 diabetes mellitus with diabetic neuropathy, unspecified; E78.5 Hyperlipidemia, unspecified; K21.9 Gastro-esophageal reflux disease without esophagitis; Z83.3 Family history of diabetes mellitus; Z82.49 Family history of ischemic heart disease and other diseases of the circulatory system; F17.210 Nicotine dependence, cigarettes, uncomplicated; Z79.82 Long term (current) use of aspirin; Z79.4 Long term (current) use of insulin; Z79.899 Other long term (current) drug therapy; Z88.0 Allergy status to penicillin; Z88.8 Allergy status to other drugs, medicaments and biological substances

== ENCOUNTER 2017-11-14 11:24 | Emergency (ER) | payer OTHER ==
[~2017-11-14] VITALS: Ht 175.3 cm; Wt 70.9 kg
[2017-11-14 11:26] VITALS: TEMP 36.6; Ht 175.3 cm; Wt 70.9 kg
[2017-11-14] MEDS ORDERED: MoRPHine SULFATE 4 MG/ML 1 ML CARP\\VIAL IV STA (11:36)
[2017-11-14] MEDS ORDERED: OMEP20CA9 PO (11:55)
[2017-11-14] MEDS ORDERED: CRG625 PO (11:55)
[2017-11-14] MEDS ORDERED: ASPI81TA25 PO (11:55)
[2017-11-14] MEDS ORDERED: CLL250 PO (11:55)
[2017-11-14] MEDS ORDERED: VALG1TAB PO (11:55)
[2017-11-14 11:56] LABS: BASO % 1.6 %; BASO ABS # 0.06 K/uL (0-0.2); EOS % 0.8 %; EOS ABS # 0.03 K/uL (0-0.5); HEMATOCRIT 31.2 % (42-52); HEMOGLOBIN 10.1 g/dL (14.0-18.0); IG# 0.06 K/uL (0.00-0.02); LYMPH % 2.7 %; MEAN CELL VOLUME 90.4 fL (80-100); MEAN CORPUSCULAR HEMOGLOBIN 29.3 pg (25-34); MEAN CORPUSCULAR HGB CONC 32.4 g/dl (32-36); MEAN PLATELET VOLUME 9.1 fL (7.4-10.4); MONO % 2.1 %; MONO ABS # 0.08 K/uL (0.11-0.59); NEUT % 91.2 %; PLATELET COUNT 354 K/uL (130-400); RED CELL DISTRIBUTION WIDTH CV 14.9 % (11.5-14.5); RED CELL DISTRIBUTION WIDTH SD 48.7 fL (36.4-46.3); WHITE BLOOD COUNT 3.73 K/uL (4.8-10.8)
[2017-11-14 12:12] LABS: CALCIUM 9.4 mg/dl (8.5-10.1); CREATININE 1.7 mg/dl (0.60-1.40); PHOSPHORUS 1.9 mg/dl (2.5-4.9); POTASSIUM 5.7 mmol/L (3.5-5.1)
[2017-11-14] MEDS ORDERED: TACR1CAP3 PO (12:12)
[2017-11-14] MEDS ORDERED: SULF-302 PO (12:12)
[2017-11-14] MEDS ORDERED: FLUC200T4 PO (12:12)
[2017-11-14] MEDS ORDERED: MAGNESIUM OXIDE 400 MG TAB PO STA (12:39)
[2017-11-14] MEDS ORDERED: SODIUM CHLORIDE 0.9% 1000ML 1,000 ML IV STA (12:39)
--- NOTE | 2017-11-14 13:28 | EMERGENCY ROOM VISIT NOTE ---
History Report prepared by Falguni: Villa Teran Under the Supervision of: Dr. Ethan Tatum M.D. First contact with patient: 11:28 Chief Complaint: ABNORMAL DIAGNOSTIC TESTING Stated Complaint: HIGH POTASIUM History of Present Illness The patient is a 32 year old white male with a past medical history of CKD with kidney transplant, type 1 diabetes, GERD, and HTN who presents to the ED with a cc of abnormal laboratory testing occurring today. He had blood-work this morning and was told he had a high potassium (6.2). The patient had a kidney transplant 3 weeks ago. He was formerly on dialysis. Negative fevers, chills, urinary symptoms, or diarrhea. He denies recent medication changes. He denies increased stress. Source of History: patient Onset: Today Symptom Intensity: 6.2 Quality: other (hyperkalemia) Timing: constant Associated Symptoms: No fevers, No chills, No diarrhea, No urinary symptoms Review of Systems See HPI for pertinent positives and negatives. A total of ten systems were reviewed and were otherwise negative. Past Medical & Surgical Medical Problems: (1) Anemia (2) Chronic kidney disease, stage IV (severe) (3) CKD (chronic kidney disease) stage V requiring chronic dialysis (4) Diabetic neuropathy (5) DM type 1 (diabetes mellitus, type 1) (6) Dyslipidemia (7) GERD (gastroesophageal reflux disease) (8) HTN (hypertension) (9) steal syndrome left arm (10) Wound, open, foot Surgical Problems: (1) S/p eye procedures (2) S/P tonsillectomy and adenoidectomy Family History Diabetes mellitus FH: heart disease Hypertension FATHER Social History Smoking Status: Never Smoker Alcohol Use: none Drug Use: none Marital Status: in relationship Housing Status: lives with significant other Occupation Status: employed Current/Historical Medications Scheduled Aspirin (Aspirin Ec), 81 MG PO QAM Carvedilol (Carvedilol), 6.25 MG PO BID Fluconazole (Diflucan), PO UNKNOWN Furosemide (Furosemide), 80 MG PO QAM Insulin Aspart (novoLOG INSULIN PUMP ), 1 EA N/A UD Multivitamin (Multivitamin), 1 TAB PO QAM Omeprazole (Prilosec), 20 MG PO QAM Pregabalin (Lyrica), 75 MG PO BID Ropinirole (Requip), 5 MG PO DAILY Sulfamethoxazole-Trimethoprim (Smz-Tmp Ds), Unknown Dose PO UNKNOWN Tacrolimus (Tacrolimus), 1 MG PO UNKNOWN Valganciclovir HCl (Valganciclovir), 450 MG PO BID Venlafaxine Hcl (Venlafaxine Extended Rel), 37.5 MG PO QPM Scheduled PRN Glucagon (Glucagon Emergency Kit), 1 DOSE UD PRN for HYPOGLYCEMIA PROTOCOL Miscellaneous Medications Mycophenolate Mofetil (Mycophenolate Mofetil), 250 MG PO Allergies Coded Allergies: Penicillins (Verified Allergy, Intermediate, RASH A CHILD; HAS HAD AMOXICILLIN W/O PROBLEM, 11/14/17) BLAIR Inhibitors (Verified Adverse Reaction, Intermediate, hyperkalemia, 11/14) Angiotensin Receptor Blockers (Verified Adverse Reaction, Intermediate, hyperkalemia, 11/14/17) Physical Exam Vital Signs Date Time Temp Pulse Resp B/P (MAP) Pulse Ox O2 Delivery O2 Flow Rate FiO2 11/14/17 12:48 102 15 184/115 99 Room Air 11/14/17 12:18 103 11/14/17 11:26 36.6 99 18 114/78 100 Room Air Physical Exam GENERAL: Awake, alert, well-appearing, NAD. Appears pale. Wearing glasses. HENT: Normocephalic, atraumatic. EYES: Normal conjunctiva. Sclera non-icteric. PERRL. No anisocoria. NECK: Supple. No nuchal rigidity. FROM. RESPIRATORY: CTAB, no rhonchi, wheezing, crackles CARDIAC: RRR, no MRG ABDOMEN: Soft, NTND, BS+ MSK: No chest wall TTP, no LE edema. Palpable thrill to the upper arm of the RUE over the AVF site. 8 cm linear stapled incision over the lower abdomen. CDI. Non-tender. NEURO: GCS 15, CN 2-12 intact, moves all 4s on command SKIN: No rash or jaundice noted. Medical Decision & Procedures Laboratory Results 11/14/17 11:48 Red Blood Count 3.45, Mean Corpuscular Volume 90.4, Mean Corpuscular Hemoglobin 29.3, Mean Corpuscular Hemoglobin Concent 32.4, Mean Platelet Volume 9.1, Neutrophils (%) (Auto) 91.2, Lymphocytes (%) (Auto) 2.7, Monocytes (%) (Auto) 2.1, Eosinophils (%) (Auto) 0.8, Basophils (%) (Auto) 1.6, Neutrophils # (Auto) 3.40, Lymphocytes # (Auto) 0.10, Monocytes # (Auto) 0.08, Eosinophils # (Auto) 0.03, Basophils # (Auto) 0.06 11/14/17 11:48 Test 11/14/17 11:48 White Blood Count 3.73 K/uL (4.8-10.8) Red Blood Count 3.45 M/uL (4.7-6.1) Hemoglobin 10.1 g/dL (14.0-18.0) Hematocrit 31.2 % (42-52) Mean Corpuscular Volume 90.4 fL (80-100) Mean Corpuscular Hemoglobin 29.3 pg (25-34) Mean Corpuscular Hemoglobin Concent 32.4 g/dl (32-36) Platelet Count 354 K/uL (130-400) Mean Platelet Volume 9.1 fL (7.4-10.4) Neutrophils (%) (Auto) 91.2 % Lymphocytes (%) (Auto) 2.7 % Monocytes (%) (Auto) 2.1 % Eosinophils (%) (Auto) 0.8 % Basophils (%) (Auto) 1.6 % Neutrophils # (Auto) 3.40 K/uL (1.4-6.5) Lymphocytes # (Auto) 0.10 K/uL (1.2-3.4) Monocytes # (Auto) 0.08 K/uL (0.11-0.59) Eosinophils # (Auto) 0.03 K/uL (0-0.5) Basophils # (Auto) 0.06 K/uL (0-0.2) RDW Standard Deviation 48.7 fL (36.4-46.3) RDW Coefficient of Variation 14.9 % (11.5-14.5) Immature Granulocyte % (Auto) 1.6 % Immature Granulocyte # (Auto) 0.06 K/uL (0.00-0.02) Anion Gap 4.0 mmol/L (3-11) Est Creatinine Clear Calc Drug Dose 61.3 ml/min Estimated GFR () 59.7 Estimated GFR (Non- 51.5 BUN/Creatinine Ratio 14.4 (10-20) Calcium Level 9.4 mg/dl (8.5-10.1) Phosphorus Level 1.9 mg/dl (2.5-4.9) Magnesium Level 1.5 mg/dl (1.8-2.4) Laboratory results reviewed by me Medications Administered Medications (Trade) Dose Ordered Sig/Lynda Route Start Time Stop Time Status Last Admin Dose Admin Sodium Chloride 1,000 ml @ 999 mls/hr Q1H1M STAT IV 11/14/17 12:39 11/14/17 13:39 DC 11/14/17 12:39 999 MLS/HR Magnesium Oxide (Mag-Ox Tab) 800 mg ONE STAT PO 11/14/17 12:39 11/14/17 12:41 DC 11/14/17 12:48 800 MG ECG Per My Interpretation Indication: other (hyperkalemia) Rate (beats per minute): 99 Rhythm: normal sinus Findings: other (Normal axis. No STS changes or TWI. ) ED Course 1131: The patient was evaluated in room C10. A complete history and physical exam was performed. 1420: I reevaluated the patient. Discussed results and discharge instructions: he verbalized understanding and agreement. The patient is ready for discharge. Medical Decision Nursing notes reviewed. Ancillary studies and prior records reviewed. The patient is a 32 year old white male with a past medical history of CKD with kidney transplant, type 1 diabetes, GERD, and HTN who presents to the ED with a cc of abnormal laboratory testing occurring today. Differential diagnosis: Etiologies such as diabetic complication, metabolic abnormality, medication side effect, failed transplant as well as others were entertained. Patient was seen and evaluated the bedside. Patient status post kidney transplant approximately 3 weeks ago. Patient is on Bactrim, ganciclovir, tacro , mycophenolate, Diflucan. The patient did have a reported potassium greater than 6 earlier today. Patient had blood work completed. The patient looks and feels well. Patient's creatinine was 1.5 prior today's 1.7. Patient is a potassium of 5.7. We discussed dietary changes. Patient mag and false was somewhat low. For the fall Anneliese he was told to try soda or dairy per nephrology. He was given magnesium oxide. He was also given IV fluids. Patient was given prescription to follow-up tomorrow for repeat BMP and fossa. Given the patient is very well- appearing and is afebrile do not believe that the patient requires blood cultures, antibiotics, or further imaging at this time. Patient was given strict follow-up, discharge, and return precautions. All questions were answered. Patient was deemed suitable for outpatient follow-up at this time. Patient agreed with the plan of care and was safely discharged home. Medication Reconcilliation Current Medication List: was personally reviewed by me Blood Pressure Screening Patient's blood pressure: Normal blood pressure Blood pressure disposition: Did not require urgent referral Consults Time Called: 1220 Consulting Physician: Dr. Vargas - Nephrology Returned Call: [phone] Discussed the patient's case. Dr. Vargas recommends the patient be given IV fluids , and advised to be careful with his diet. He recommends the patient have his BNP rechecked tomorrow. Impression Primary Impression: Hyperkalemia Additional Impressions: Anemia Hypomagnesemia Hypophosphatemia Scribe Attestation The scribe's documentation has been prepared under my direction and personally reviewed by me in its entirety. I confirm that the note above accurately reflects all work, treatment, procedures, and medical decision making performed by me. Departure Information Dispostion Home / Self-Care Referrals No Doctor, Assigned (PCP) Patient Instructions Hyperkalemia Dc, Hypophosphatemia Dc, Kidney Disease Chronic Dc, My [facility] Additional Instructions Please return to the emergency department if you have worsening or recurrent symptoms not amenable to at-home treatment. Please call for a follow-up appointment with her primary care physician. Please take your medications as prescribed. If you have other concerns and/or complaints please feel free to also call your primary care physician's office or return the ED for further evaluation, management, and treatment. Please be sure to return to an outpatient laboratory clinic for repeat blood work tomorrow November 2. Please be sure to avoid oranges, bananas, potatoes or other supplements/food w/ potassium. Take your medications as prescribed. You have been examined and treated today on an emergency basis only. This is not a substitute for, or an effort to provide, complete comprehensive medical care. It is impossible to recognize and treat all injuries or illnesses in a single emergency department visit. It is therefore important that you follow up closely with [facility], your PCP, and/or your specialist(s). Call as soon as possible for an appointment. Thank you for your time and consideration. I look forward to speaking with you again soon. Please don't hesitate to call us if you have any questions. Problem Qualifiers Additional Impressions: Anemia Anemia type: unspecified type Qualified Codes: D64.9 - Anemia, unspecified
[2017-11-14 15:11] VITALS: BP 193/96; PULSE 95; O2SAT 98
== END 2017-11-14 15:13 | disposition home or self-care (01) ==
LOC: C.EDB 11:25 → C.EDC 15:13
DX: E87.5 Hyperkalemia (principal); D64.9 Anemia, unspecified; E83.42 Hypomagnesemia; E83.39 Other disorders of phosphorus metabolism; I12.0 Hypertensive chronic kidney disease with stage 5 chronic kidney disease or end stage renal disease; N18.5 Chronic kidney disease, stage 5; E10.40 Type 1 diabetes mellitus with diabetic neuropathy, unspecified; E10.22 Type 1 diabetes mellitus with diabetic chronic kidney disease; Z94.0 Kidney transplant status; K21.9 Gastro-esophageal reflux disease without esophagitis; Z99.2 Dependence on renal dialysis; Z88.0 Allergy status to penicillin; Z88.8 Allergy status to other drugs, medicaments and biological substances; Z96.41 Presence of insulin pump (external) (internal); Z90.89 Acquired absence of other organs; Z83.3 Family history of diabetes mellitus; Z82.49 Family history of ischemic heart disease and other diseases of the circulatory system; Z79.82 Long term (current) use of aspirin; Z79.899 Other long term (current) drug therapy

== ENCOUNTER 2017-11-17 18:14 | Emergency (ER) | payer OTHER ==
[~2017-11-17 18:14] MED LIST changes: -CALC667C4 PO; -CHOL1TAB42 PO; -CINA0.42 PO; +CLL250 PO; +CRG625 PO; +FLUC200T4 PO; -HYDR-4717 PO; -IMD/2 PO; -INSPMPNVLG; +OMEP20CA9 PO; -PREG75CA PO; -PROM1TAB6 PO; -PROP80TA30 PO; +SULF-302 PO; +TACR1CAP3 PO; +VALG1TAB PO; -VENL37.593 PO
[2017-11-17 18:24] VITALS: Ht 175.3 cm
[2017-11-17] MEDS ORDERED: SODIUM CHLORIDE 0.9% 1000ML 1,000 ML IV STA (18:26)
[2017-11-17 18:41] LABS: HEMATOCRIT 35.2 % (42-52); HEMOGLOBIN 11.5 g/dL (14.0-18.0); MEAN CORPUSCULAR HEMOGLOBIN 29.4 pg (25-34); MEAN CORPUSCULAR HGB CONC 32.7 g/dl (32-36); MEAN PLATELET VOLUME 9.6 fL (7.4-10.4); PLATELET COUNT 351 K/uL (130-400); RED CELL DISTRIBUTION WIDTH SD 48.8 fL (36.4-46.3); WHITE BLOOD COUNT 3.31 K/uL (4.8-10.8)
[2017-11-17 19:06] LABS: ALKALINE PHOSPHATASE 174 U/L (45-117); ALT/SGPT 23 U/L (12-78); AST/SGOT 18 U/L (15-37); BLOOD UREA NITROGEN 29 mg/dl (7-18); CALCIUM 9.5 mg/dl (8.5-10.1); CARBON DIOXIDE 24 mmol/L (21-32); CKMB 10.2 ng/ml (0.5-3.6); GLUCOSE 46 mg/dl (70-99); POTASSIUM 4.2 mmol/L (3.5-5.1); SODIUM 140 mmol/L (136-145); TOTAL PROTEIN 8.1 gm/dl (6.4-8.2)
[2017-11-17 19:07] LABS: BASO % 1.5 %; BASO ABS # 0.05 K/uL (0-0.2); EOS % 0.9 %; EOS ABS # 0.03 K/uL (0-0.5); IG# 0.04 K/uL (0.00-0.02); LYMPH % 4.2 %; LYMPH ABS # 0.14 K/uL (1.2-3.4); MONO % 1.2 %; MONO ABS # 0.04 K/uL (0.11-0.59); NEUT ABS # 3.01 K/uL (1.4-6.5)
--- NOTE | 2017-11-17 19:10 | DIAGNOSTIC IMAGING REPORT ---
CHEST ONE VIEW PORTABLE HISTORY: 32 years-old Male EVALUATE ALTERED MENTAL STATUS/WEAKNESS acute weakness with altered mental status COMPARISON: Acute abdominal series radiographs 10/27/2017 TECHNIQUE: Portable AP view of the chest FINDINGS: Cardiomediastinal and hilar silhouettes are within normal limits. There is no pneumothorax or pleural effusion. No lobar airspace consolidation. Linear subsegmental opacity of the medial right lung base is unchanged compatible with atelectasis or scarring. Bones of the chest appear grossly intact. IMPRESSION: No acute process. The above report was generated using voice recognition software. It may contain grammatical, syntax or spelling errors. Electronically signed by: Jorge Rodriguez M.D. 11/17/2017 7:09 PM Dictated Date/Time: 11/17/2017 7:08 PM
[2017-11-17] MEDS ORDERED: ROPI0.5T PO (19:49)
[2017-11-17] MEDS ORDERED: CPR/500 PO (19:50)
--- NOTE | 2017-11-17 20:23 | EMERGENCY ROOM VISIT NOTE ---
History Report prepared by Falguni: Edilberto Serna Under the Supervision of: Rao JenkinsO. First contact with patient: 18:26 Chief Complaint: SEIZURE Stated Complaint: SEIZURE Nursing Triage Summary: patient brought in by ems patient found seizing by girlfriend patient blood sugar checked at that time and read low,patient given glucagon patient had bsg of 56 then 41 for ems,ems gave patient amp D50 bsg 126 patient reports hx of DM 1,kidney transplant 3 weeks ago,patient shirt covered in sweat History of Present Illness The patient is a 32 year old male who presents to the Emergency Room with complaints of episodic general syncope [employer]. He has type 1 diabetes. He had a kidney transplant a few weeks ago at [facility]. He states that he was doing laundry when he passed out. He notes that he had just eaten juan ramon crackers after he shifted his insulin pump to a different site on his abdomen. He believes his blood glucose decreased before he passed out. He states that his girlfriend witnessed him have a seizure. He is urinating without issue. He was on dialysis prior to the surgery. Source of History: patient Onset: EARRINGS [employer]IC[employer] Position: other (general ) Quality: other (syncope) Timing: other (episodic) Associated Symptoms: + LOC Note: Notes seizure. Review of Systems See HPI for pertinent positives & negatives. A total of 10 systems reviewed and were otherwise negative. Past Medical & Surgical Medical Problems: (1) Anemia (2) Chronic kidney disease, stage IV (severe) (3) CKD (chronic kidney disease) stage V requiring chronic dialysis (4) Diabetic neuropathy (5) DM type 1 (diabetes mellitus, type 1) (6) Dyslipidemia (7) GERD (gastroesophageal reflux disease) (8) HTN (hypertension) (9) steal syndrome left arm (10) Wound, open, foot Surgical Problems: (1) Kidney transplanted (2) S/p eye procedures (3) S/P tonsillectomy and adenoidectomy Family History Diabetes mellitus FH: heart disease Hypertension FATHER Social History Smoking Status: Former Smoker Alcohol Use: none Drug Use: none Marital Status: in relationship Housing Status: lives with significant other Occupation Status: employed Current/Historical Medications Scheduled Aspirin (Aspirin Ec), 81 MG PO QAM Carvedilol (Carvedilol), 6.25 MG PO BID Ciprofloxacin (Ciprofloxacin HCl), 500 MG PO DAILY Fluconazole (Diflucan), 200 MG PO WK Insulin Aspart (novoLOG INSULIN PUMP ), 1 EA N/A UD Multivitamin (Multivitamin), 1 TAB PO QAM Mycophenolate Mofetil (Mycophenolate Mofetil), 500 MG PO BID Omeprazole (Prilosec), 20 MG PO QAM Pregabalin (Lyrica), 75 MG PO BID Ropinirole Hydrochloride (Requip), 0.5 MG PO HS Tacrolimus (Tacrolimus), 3 MG PO BID Valganciclovir HCl (Valganciclovir), 450 MG PO BID Venlafaxine Hcl (Venlafaxine Extended Rel), 37.5 MG PO QPM Scheduled PRN Glucagon (Glucagon Emergency Kit), 1 DOSE UD PRN for HYPOGLYCEMIA PROTOCOL Allergies Coded Allergies: Penicillins (Verified Allergy, Intermediate, RASH A CHILD; HAS HAD AMOXICILLIN W/O PROBLEM, 11/14/17) BLAIR Inhibitors (Verified Adverse Reaction, Intermediate, hyperkalemia, 11/14) Angiotensin Receptor Blockers (Verified Adverse Reaction, Intermediate, hyperkalemia, 11/14/17) Physical Exam Vital Signs Date Time Temp Pulse Resp B/P (MAP) Pulse Ox O2 Delivery O2 Flow Rate FiO2 11/17/17 20:35 110 18 150/92 100 11/17/17 19:30 105 17 11/17/17 19:23 145/101 97 Room Air 11/17/17 19:00 102 22 11/17/17 18:43 103 11/17/17 18:24 106 18 100 Room Air Physical Exam CONSTITUTIONAL/VITAL SIGNS: Reviewed / noted above. GENERAL: Non-toxic in appearance. INTEGUMENTARY: Warm, dry, and [place]. HEAD: Normocephalic. EYES: without scleral icterus or trauma. ENT/OROPHARYNX: clear and moist. No tongue bites. LYMPHADENOPATHY/NECK: Is supple without lymphadenopathy or meningismus. RESPIRATORY: Lungs clear and equal. CARDIOVASCULAR: Regular rate and rhythm. GI/ABDOMEN: Soft and nontender. No organomegaly or pulsatile mass. No rebound or guarding. Normal bowel sounds. Healing scar in right lower abdomen from kidney transplant. EXTREMITIES: Warm and well perfused. BACK: No CVA tenderness. NEUROLOGICAL: Intact without focal deficits. PSYCHIATRIC: normal affect. MUSCULOSKELETAL: Normally developed with good muscle tone. Medical Decision & Procedures ER Provider Diagnostic Interpretation: Radiology results as stated below per my review and radiologist interpretation: CHEST ONE VIEW PORTABLE HISTORY: 32 years-old Male EVALUATE ALTERED MENTAL STATUS/WEAKNESS acute weakness with altered mental status COMPARISON: Acute abdominal series radiographs 10/27/2017 TECHNIQUE: Portable AP view of the chest FINDINGS: Cardiomediastinal and hilar silhouettes are within normal limits. There is no pneumothorax or pleural effusion. No lobar airspace consolidation. Linear subsegmental opacity of the medial right lung base is unchanged compatible with atelectasis or scarring. Bones of the chest appear grossly intact. IMPRESSION: No acute process. The above report was generated using voice recognition software. It may contain grammatical, syntax or spelling errors. Electronically signed by: Jorge Rodriguez M.D. 11/17/2017 7:09 PM Dictated Date/Time: 11/17/2017 7:08 PM Laboratory Results 11/17/17 18:10 Red Blood Count 3.91, Mean Corpuscular Volume 90.0, Mean Corpuscular Hemoglobin 29.4, Mean Corpuscular Hemoglobin Concent 32.7, Mean Platelet Volume 9.6, Neutrophils (%) (Auto) 91.0, Lymphocytes (%) (Auto) 4.2, Monocytes (%) (Auto) 1.2, Eosinophils (%) (Auto) 0.9, Basophils (%) (Auto) 1.5, Neutrophils # (Auto) 3.01, Lymphocytes # (Auto) 0.14, Monocytes # (Auto) 0.04, Eosinophils # (Auto) 0.03, Basophils # (Auto) 0.05 11/17/17 18:10 Test 11/17/17 18:10 11/17/17 18:26 White Blood Count 3.31 K/uL (4.8-10.8) Red Blood Count 3.91 M/uL (4.7-6.1) Hemoglobin 11.5 g/dL (14.0-18.0) Hematocrit 35.2 % (42-52) Mean Corpuscular Volume 90.0 fL (80-100) Mean Corpuscular Hemoglobin 29.4 pg (25-34) Mean Corpuscular Hemoglobin Concent 32.7 g/dl (32-36) Platelet Count 351 K/uL (130-400) Mean Platelet Volume 9.6 fL (7.4-10.4) Neutrophils (%) (Auto) 91.0 % Lymphocytes (%) (Auto) 4.2 % Monocytes (%) (Auto) 1.2 % Eosinophils (%) (Auto) 0.9 % Basophils (%) (Auto) 1.5 % Neutrophils # (Auto) 3.01 K/uL (1.4-6.5) Lymphocytes # (Auto) 0.14 K/uL (1.2-3.4) Monocytes # (Auto) 0.04 K/uL (0.11-0.59) Eosinophils # (Auto) 0.03 K/uL (0-0.5) Basophils # (Auto) 0.05 K/uL (0-0.2) RDW Standard Deviation 48.8 fL (36.4-46.3) RDW Coefficient of Variation 15.0 % (11.5-14.5) Immature Granulocyte % (Auto) 1.2 % Immature Granulocyte # (Auto) 0.04 K/uL (0.00-0.02) Hypersegmented Polys 1+ Anion Gap 6.0 mmol/L (3-11) Estimated GFR () 52.1 Estimated GFR (Non- 45.0 BUN/Creatinine Ratio 15.0 (10-20) Calcium Level 9.5 mg/dl (8.5-10.1) Magnesium Level 1.7 mg/dl (1.8-2.4) Total Bilirubin 0.7 mg/dl (0.2-1) Direct Bilirubin 0.2 mg/dl (0-0.2) Aspartate Amino Transf (AST/SGOT) 18 U/L (15-37) Alanine Aminotransferase (ALT/SGPT) 23 U/L (12-78) Alkaline Phosphatase 174 U/L (45-117) Total Creatine Kinase 210 U/L (39-308) Creatine Kinase MB 10.2 ng/ml (0.5-3.6) Creatine Kinase MB Ratio 4.9 (0-3.0) Total Protein 8.1 gm/dl (6.4-8.2) Albumin 4.0 gm/dl (3.4-5.0) Laboratory results as stated above per my review. Medications Administered Medications (Trade) Dose Ordered Sig/Lynda Route Start Time Stop Time Status Last Admin Dose Admin Sodium Chloride 1,000 ml @ 999 mls/hr Q1H1M STAT IV 11/17/17 18:26 11/17/17 19:26 DC 11/17/17 18:26 999 MLS/HR ECG Per My Interpretation Indication: syncope Rate (beats per minute): 102 Rhythm: sinus tachycardia Findings: no ectopy, other (No ST elevation) ED Course 1821: Previous medical records were reviewed. The patient was evaluated in room C8. A complete history and physical examination was performed. 1825: Ordered Sodium Chloride 1,000 ml @ 999 mls/hr IV 2030: I reassessed the patient at this time. He is feeling better and resting comfortably. I discussed the results and treatment plan with the patient. I answered all pertaining questions that he had. He expressed understanding and verbalized agreement. The patient will be discharged home. Medical Decision Differential diagnosis: Etiologies such as infection, hypoglycemia, electrolyte abnormalities, cardiac sources, intracerebral event, trauma, toxicologic, neurologic, as well as others were entertained. This is a 32-year-old male who presents to the ED with a chief complaint of a seizure. The patient actually had a hypoglycemic episode that resulted in a seizure. The blood sugar when EMS arrived was low. Patient has history of type 1 diabetes. He is on insulin pump. He recalls switching the site and then otherwise recalls waking up with EMS. The patient's girlfriend was present. His physical exam now is normal. He did not bite his tongue. No incontinence. He has a healing scar in the right lower quadrant from his recent renal transplant a few weeks ago. He denies any fevers or abdominal pains. Chest x-ray is negative for acute disease. CBC is unremarkable, repeat creatinine is 1.9. His BUN is 29. This is about his baseline. Glucose was 46. The patient was fed. Prior to eating his meal his blood sugar was 101. He is asymptomatic at the time of disposition and discharge. Medication Reconcilliation Current Medication List: was personally reviewed by me Blood Pressure Screening Blood pressure disposition: Elevated BP felt to be situational Impression Primary Impression: Hypoglycemia Scribe Attestation The scribe's documentation has been prepared under my direction and personally reviewed by me in its entirety. I confirm that the note above accurately reflects all work, treatment, procedures, and medical decision making performed by me. Departure Information Dispostion Home / Self-Care Referrals Damian Ibarra M.D.(ELOISA) (PCP) Forms HOME CARE DOCUMENTATION FORM, IMPORTANT VISIT INFORMATION Patient Instructions Hypoglycemia, My [facility] [address] Additional Instructions Follow-up with your doctor for further care and evaluation in 1-5 days. Return to the emergency department for worsening or new symptoms or any concerns. You have been examined and treated today on an emergency basis only. This is not a substitute for, or an effort to provide, complete comprehensive medical care. It is impossible to recognize and treat all injuries or illnesses in a single emergency department visit. It is therefore important that you follow up closely with your doctor. Call as soon as possible for an appointment.
[2017-11-17 20:35] VITALS: BP 150/92; PULSE 110; O2SAT 100
[2017-11-17] MEDS ORDERED: VENL37.593 PO (21:38)
[2017-11-17] MEDS ORDERED: INSPMPNVLG (21:38)
[2017-11-17] MEDS ORDERED: PREG75CA PO (21:38)
== END 2017-11-17 20:36 | disposition home or self-care (01) ==
LOC: C.EDC 18:14 → EDBD 18:14 → C.EDC 20:36
DX: E10.649 Type 1 diabetes mellitus with hypoglycemia without coma (principal); E10.22 Type 1 diabetes mellitus with diabetic chronic kidney disease; E10.40 Type 1 diabetes mellitus with diabetic neuropathy, unspecified; I10 Essential (primary) hypertension; Z94.0 Kidney transplant status; Z87.891 Personal history of nicotine dependence; Z79.82 Long term (current) use of aspirin; Z79.4 Long term (current) use of insulin; Z88.0 Allergy status to penicillin; Z88.8 Allergy status to other drugs, medicaments and biological substances; Z83.3 Family history of diabetes mellitus

== ENCOUNTER 2017-11-26 15:17 | Emergency (ER) | payer OTHER ==
[~2017-11-26] VITALS: Ht 175.3 cm; Wt 75.8 kg
[~2017-11-26 15:17] MED LIST changes: +CPR/500 PO; +INSPMPNVLG; -LSX80 PO; +PREG75CA PO; +ROPI0.5T PO; -ROPI5TAB PO; -SULF-302 PO; +VENL37.593 PO
[2017-11-26 15:19] VITALS: TEMP 36.6; Ht 175.3 cm; Wt 75.8 kg
[2017-11-26] MEDS ORDERED: SODIUM CHLORIDE 0.9% 1000ML 500 ML IV STA (15:26)
--- NOTE | 2017-11-26 15:36 | EMERGENCY ROOM VISIT NOTE ---
History Report prepared by Falguni: Shilo Dior Under the Supervision of: Dr. Alex Garcia M.D. First contact with patient: 15:20 Chief Complaint: HYPOGLYCEMIA Stated Complaint: HYPOGLYCEMIA/ EVAL History of Present Illness The patient is a 32 year old male who presents to the Emergency Room with complaints of an episode of hypoglycemia occurring today. The patient states that he was feeling low today and tried to have something to eat. He notes that the next thing that he remembers is waking up to EMS. He reports that he also had a low sugar episode a few weeks ago, but states that he has been doing well otherwise. Per EMR, the patient was seen in the emergency department for low blood sugar on 11/17/2017 and was discharged home. The patient notes that he has not done anything differently in the last few days. He denies any fever, difficulty making urine, and cough. He reports that he has a history of diabetes and has had a kidney transplant. Source of History: patient Onset: today Position: other (generalized) Quality: other (hypoglycemia) Timing: other (an episode) Associated Symptoms: + LOC, No fevers, No cough Note: The patient also denies having difficulty making urine. Review of Systems See HPI for pertinent positives & negatives. A total of 10 systems reviewed and were otherwise negative. Past Medical & Surgical Medical Problems: (1) Anemia (2) Chronic kidney disease, stage IV (severe) (3) CKD (chronic kidney disease) stage V requiring chronic dialysis (4) Diabetic neuropathy (5) DM type 1 (diabetes mellitus, type 1) (6) Dyslipidemia (7) GERD (gastroesophageal reflux disease) (8) HTN (hypertension) (9) steal syndrome left arm (10) Wound, open, foot Surgical Problems: (1) Kidney transplanted (2) S/p eye procedures (3) S/P tonsillectomy and adenoidectomy Family History Diabetes mellitus FH: heart disease Hypertension FATHER Social History Smoking Status: Former Smoker Alcohol Use: none Drug Use: none Marital Status: single Occupation Status: employed Current/Historical Medications Scheduled Aspirin (Aspirin Ec), 81 MG PO QAM Carvedilol (Carvedilol), 6.25 MG PO BID Ciprofloxacin (Ciprofloxacin HCl), 500 MG PO DAILY Fluconazole (Diflucan), 200 MG PO WK Insulin Aspart (novoLOG INSULIN PUMP ), 1 EA N/A UD Multivitamin (Multivitamin), 1 TAB PO QAM Mycophenolate Mofetil (Mycophenolate Mofetil), 500 MG PO BID Mycophenolate Mofetil (Mycophenolate Mofetil), 500 MG PO BID Omeprazole (Prilosec), 20 MG PO QAM Pregabalin (Lyrica), 75 MG PO BID Ropinirole Hydrochloride (Requip), 0.5 MG PO HS Tacrolimus (Tacrolimus), 3 MG PO BID Valganciclovir HCl (Valganciclovir), 450 MG PO BID Venlafaxine Hcl (Venlafaxine Extended Rel), 37.5 MG PO QPM Scheduled PRN Glucagon (Glucagon Emergency Kit), 1 DOSE UD PRN for HYPOGLYCEMIA PROTOCOL Oxycodone HCl (Oxycodone HCl), 5 MG PO Q4 PRN for Pain Allergies Coded Allergies: Penicillins (Verified Allergy, Intermediate, RASH A CHILD; HAS HAD AMOXICILLIN W/O PROBLEM, 11/26/17) BLAIR Inhibitors (Verified Adverse Reaction, Intermediate, hyperkalemia, ) Angiotensin Receptor Blockers (Verified Adverse Reaction, Intermediate, hyperkalemia, 11/26/17) Physical Exam Vital Signs Date Time Temp Pulse Resp B/P (MAP) Pulse Ox O2 Delivery O2 Flow Rate FiO2 11/26/17 16:55 108 24 144/101 100 Room Air 11/26/17 15:43 106 11/26/17 15:19 36.6 103 17 180/117 100 Room Air Physical Exam GENERAL: Patient is in no acute distress. HEENT: No acute trauma, normocephalic atraumatic, mucous membranes moist, no nasal congestion, no scleral icterus. NECK: No stridor, no adenopathy, no meningismus, trachea is midline. LUNGS: Crackles in the left base, no wheezing, breath sounds equal bilaterally, no respiratory distress. HEART: Tachycardic with a regular rhythm, no murmurs. ABDOMEN: Soft, nontender, bowel sounds positive, no hernias, no peritonitis. EXTREMITIES: No cyanosis or edema, full range of motion of all the joints without pain or difficulty, no signs for acute trauma. NEUROLOGIC: Oriented x 3, no acute motor or sensory deficits, no focal weakness. SKIN: No rash, no jaundice, no diaphoresis. Medical Decision & Procedures ER Provider Diagnostic Interpretation: Radiology results as stated below per my review and radiologist interpretation: CHEST ONE VIEW PORTABLE FINDINGS: Stable linear scarlike density within the right medial lung base. The left lung is clear. No pleural effusions. No pneumothorax. The heart is normal in size. No change in the hazy appearance to the right perihilar location. This may be chronic. IMPRESSION: No significant change compared to the prior study. No acute process. Electronically signed by: Jason Bustillo M.D. 11/26/2017 4:03 PM Laboratory Results 11/26/17 15:43 Red Blood Count 4.57, Mean Corpuscular Volume 90.8, Mean Corpuscular Hemoglobin 29.5, Mean Corpuscular Hemoglobin Concent 32.5, Mean Platelet Volume 10.5, Neutrophils (%) (Auto) 94.8, Lymphocytes (%) (Auto) 2.7, Monocytes (%) (Auto) 1.5, Eosinophils (%) (Auto) 0.0, Basophils (%) (Auto) 0.5, Neutrophils # (Auto) 5.69, Lymphocytes # (Auto) 0.16, Monocytes # (Auto) 0.09, Eosinophils # (Auto) 0.00, Basophils # (Auto) 0.03 11/26/17 15:43 Test 11/26/17 15:43 11/26/17 16:50 11/26/17 16:53 White Blood Count 6.00 K/uL (4.8-10.8) Red Blood Count 4.57 M/uL (4.7-6.1) Hemoglobin 13.5 g/dL (14.0-18.0) Hematocrit 41.5 % (42-52) Mean Corpuscular Volume 90.8 fL (80-100) Mean Corpuscular Hemoglobin 29.5 pg (25-34) Mean Corpuscular Hemoglobin Concent 32.5 g/dl (32-36) Platelet Count 176 K/uL (130-400) Mean Platelet Volume 10.5 fL (7.4-10.4) Neutrophils (%) (Auto) 94.8 % Lymphocytes (%) (Auto) 2.7 % Monocytes (%) (Auto) 1.5 % Eosinophils (%) (Auto) 0.0 % Basophils (%) (Auto) 0.5 % Neutrophils # (Auto) 5.69 K/uL (1.4-6.5) Lymphocytes # (Auto) 0.16 K/uL (1.2-3.4) Monocytes # (Auto) 0.09 K/uL (0.11-0.59) Eosinophils # (Auto) 0.00 K/uL (0-0.5) Basophils # (Auto) 0.03 K/uL (0-0.2) RDW Standard Deviation 51.3 fL (36.4-46.3) RDW Coefficient of Variation 15.4 % (11.5-14.5) Immature Granulocyte % (Auto) 0.5 % Immature Granulocyte # (Auto) 0.03 K/uL (0.00-0.02) Anion Gap 5.0 mmol/L (3-11) Est Creatinine Clear Calc Drug Dose 69.4 ml/min Estimated GFR () 69.4 Estimated GFR (Non- 59.9 BUN/Creatinine Ratio 12.8 (10-20) Calcium Level 9.4 mg/dl (8.5-10.1) Total Bilirubin 0.7 mg/dl (0.2-1) Aspartate Amino Transf (AST/SGOT) 17 U/L (15-37) Alanine Aminotransferase (ALT/SGPT) 21 U/L (12-78) Alkaline Phosphatase 191 U/L (45-117) Total Protein 8.2 gm/dl (6.4-8.2) Albumin 3.8 gm/dl (3.4-5.0) Globulin 4.4 gm/dl (2.5-4.0) Albumin/Globulin Ratio 0.9 (0.9-2) Thyroid Stimulating Hormone (TSH) 1.340 uIu/ml (0.300-4.500) Urine Color YELLOW Urine Appearance CLEAR (CLEAR) Urine pH 5.0 (4.5-7.5) Urine Specific [place] 1.022 (1.000-1.030) Urine Protein NEG (NEG) Urine Glucose (UA) 2+ (NEG) Urine Ketones NEG (NEG) Urine Occult Blood 2+ (NEG) Urine Nitrite NEG (NEG) Urine Bilirubin NEG (NEG) Urine Urobilinogen NEG (NEG) Urine Leukocyte Esterase NEG (NEG) Urine WBC (Auto) 1-5 /hpf (0-5) Urine RBC (Auto) 10-30 /hpf (0-4) Urine Hyaline Casts (Auto) 1-5 /lpf (0-5) Urine Epithelial Cells (Auto) 10-20 /lpf (0-5) Urine Bacteria (Auto) NEG (NEG) Bedside Glucose 145 mg/dl (70-99) Laboratory results reviewed by me. Medications Administered Medications (Trade) Dose Ordered Sig/Lynda Route Start Time Stop Time Status Last Admin Dose Admin Sodium Chloride 500 ml @ 999 mls/hr Q31M STAT IV 11/26/17 15:26 11/26/17 15:56 DC 11/26/17 15:26 999 MLS/HR ECG Per My Interpretation Indication: tachycardia Rate (beats per minute): 107 Rhythm: sinus tachycardia Findings: no ectopy, other (LVH present, no ST elevation, no PVC) ED Course 1521: The patient was evaluated in room C7. A complete history and physical exam was performed. 1526: Sodium Chloride 500 ml @ 999 mls/hr IV 1723: Reevaluated the patient. Discussed results and discharge instructions: He verbalized understanding and agreement. The patient is ready for discharge. Medical Decision Differential diagnoses include: infection, UTI, pneumonia, dehydration, electrolyte imbalance, renal failure, and hypoglycemia. There is no leukocytosis or concerning anemia. Renal panel testing shows a creatinine of 1.5, this is improved compared to previous testing. No significant electrolyte abnormality requiring correction. No hepatitis. Patient appears to be in a euthyroid state. Urinalysis shows some hematuria, this has been seen before. No signs of infection. Chest film does not show pneumonia or CHF, no pneumothorax. EKG shows a mild sinus tachycardia, no acute ischemic change. The patient received IV saline. He was able to eat a meal here. Blood sugar was rechecked sometime later and is about 140. The patient has no complaints, he feels well. He will be discharged with outpatient follow-up. Of note, the patient's blood pressure is somewhat elevated, this is likely situational, he can follow with his doctor's office for a recheck in a few days. Patient was encouraged to keep a watch on his blood sugar and to return here for worsening symptoms. Medication Reconcilliation Current Medication List: was personally reviewed by me Blood Pressure Screening Patient's blood pressure: Elevated blood pressure Blood pressure disposition: Referred to PCP Impression Primary Impression: Change in mental status Additional Impression: Hypoglycemia Scribe Attestation The scribe's documentation has been prepared under my direction and personally reviewed by me in its entirety. I confirm that the note above accurately reflects all work, treatment, procedures, and medical decision making performed by me. Departure Information Dispostion Home / Self-Care Referrals Damian Ibarra M.D.(ELOISA) (PCP) Forms HOME CARE DOCUMENTATION FORM, IMPORTANT VISIT INFORMATION, WORK / SCHOOL INSTRUCTIONS Patient Instructions My [facility] Additional Instructions care as before keep a good watch on your blood sugars see your fam md this week for a recheck Problem Qualifiers
[2017-11-26] MEDS ORDERED: OXYC-609 PO (15:55)
[2017-11-26] MEDS ORDERED: MYCO250C7 PO (15:55)
--- NOTE | 2017-11-26 16:04 | DIAGNOSTIC IMAGING REPORT ---
CHEST ONE VIEW PORTABLE HISTORY: EVALUATE ALTERED MENTAL STATUS/WEAKNESS COMPARISON: Chest 11/17/2017. Chest 07/25/2016. FINDINGS: Stable linear scarlike density within the right medial lung base. The left lung is clear. No pleural effusions. No pneumothorax. The heart is normal in size. No change in the hazy appearance to the right perihilar location. This may be chronic. IMPRESSION: No significant change compared to the prior study. No acute process. Electronically signed by: Jason Bustillo M.D. 11/26/2017 4:03 PM Dictated Date/Time: 11/26/2017 3:53 PM
[2017-11-26 16:11] LABS: BASO % 0.5 %; BASO ABS # 0.03 K/uL (0-0.2); HEMATOCRIT 41.5 % (42-52); HEMOGLOBIN 13.5 g/dL (14.0-18.0); IG# 0.03 K/uL (0.00-0.02); LYMPH % 2.7 %; LYMPH ABS # 0.16 K/uL (1.2-3.4); MEAN CELL VOLUME 90.8 fL (80-100); MEAN CORPUSCULAR HEMOGLOBIN 29.5 pg (25-34); MEAN CORPUSCULAR HGB CONC 32.5 g/dl (32-36); MEAN PLATELET VOLUME 10.5 fL (7.4-10.4); MONO % 1.5 %; MONO ABS # 0.09 K/uL (0.11-0.59); NEUT % 94.8 %; NEUT ABS # 5.69 K/uL (1.4-6.5); PLATELET COUNT 176 K/uL (130-400); RED CELL DISTRIBUTION WIDTH CV 15.4 % (11.5-14.5); RED CELL DISTRIBUTION WIDTH SD 51.3 fL (36.4-46.3)
[2017-11-26 16:32] LABS: ALBUMIN 3.8 gm/dl (3.4-5.0); CALCIUM 9.4 mg/dl (8.5-10.1); CREATININE 1.5 mg/dl (0.60-1.40); POTASSIUM 4.5 mmol/L (3.5-5.1)
[2017-11-26 16:42] LABS: TOTAL PROTEIN 8.2 gm/dl (6.4-8.2)
[2017-11-26 17:38] VITALS: BP 125/77; PULSE 106; O2SAT 100
== END 2017-11-26 17:40 | disposition home or self-care (01) ==
LOC: EDBD 15:17 → C.EDC 15:18
DX: E11.649 Type 2 diabetes mellitus with hypoglycemia without coma (principal); R00.0 Tachycardia, unspecified; R79.89 Other specified abnormal findings of blood chemistry; N18.3 Chronic kidney disease, stage 3 (moderate); I12.9 Hypertensive chronic kidney disease with stage 1 through stage 4 chronic kidney disease, or unspecified chronic kidney disease; E11.22 Type 2 diabetes mellitus with diabetic chronic kidney disease; Z94.0 Kidney transplant status; Z87.891 Personal history of nicotine dependence; Z79.82 Long term (current) use of aspirin; Z79.4 Long term (current) use of insulin; Z79.899 Other long term (current) drug therapy; Z88.0 Allergy status to penicillin; Z88.8 Allergy status to other drugs, medicaments and biological substances; Z83.3 Family history of diabetes mellitus